=== PATIENT | female | born 1930 | race Caucasian/White ===

== ENCOUNTER 2016-07-01 08:20 | Day surgery (SDC) | payer MEDICARE, BC ==
[2016-07-01] MEDS ORDERED: PROPOFOL 10 MG/ML VIAL IV ONE (13:33)
[2016-07-01] MEDS ORDERED: LIDOCAINE 2% MDV (20MG/ML) 20ML VIAL IV ONE (13:33)
--- NOTE | 2016-07-05 15:40 | Operative Note ---
DATE OF SURGERY: 07/01/2016 REQUESTING PHYSICIAN: Abdiaziz Gallegos DO SURGEON: Beth Mao MD POSTOPERATIVE DIAGNOSES: 1. Severe left-sided colonic diverticulosis. 2. Mild terminal ileitis. 3. Grade 3 internal hemorrhoids. OPERATION: COLONOSCOPY and exam. REASON FOR PROCEDURE: This is an 86-year-old female with a history of diverticulitis who presented for screening colonoscopy. SEDATION: Sedation as per anesthesia. Pulse oximetry was monitored throughout the duration of the procedure to maintain O2 saturation of 90% or greater. Supplemental oxygen was administered via nasal cannula. Cardiac and vital signs were monitored throughout the duration of the procedure and they were stable. PROCEDURE: Description of the procedure of colonoscopy, risks, and alternatives to the procedure including the risk of bleeding and perforation among others were explained to the patient who voiced understanding and agreed to have the procedure done. A physical examination was performed and the patient was found stable for sedation. The patient was then placed in the left lateral position and sedation was initiated. Digital rectal exam was performed and showed small external hemorrhoids with no palpable rectal masses. A lubricated Olympus PCF-180AL colonoscope was then inserted into the rectum under direct visualization and was advanced to the cecum without difficulty. The ileocecal valve and appendiceal orifice were identified and photographed. The colonic mucosa was carefully examined upon insertion of the colonoscope. There were scattered diverticula noted in the sigmoid and descending colon. The ileocecal valve was intubated and terminal ileal mucosa was inspected for about 10 cm, and it showed mild, occasional, erythematous foci. Multiple biopsies were obtained. The colonoscope was then withdrawn while carefully examining the colonic mucosal surfaces. No other lesions were noted. In the rectum, retroflexion was performed and grade 3 internal hemorrhoids were noted. The colonoscope was then withdrawn and the procedure was terminated. The patient tolerated the procedure well without any complications. The patient remained with stable vital signs and was sent to the recovery room. PLAN AND RECOMMENDATIONS: 1. The patient is to be on a high-fiber diet. 2. The patient is to have repeat colonoscopy only as needed. Thank you for allowing me to participate in the care of this patient. Beth Mao MD CC: Abdiaziz Gallegos DO [facility]
== END 2016-07-01 11:10 | disposition home or self-care (01) ==
LOC: HOP 08:20
PROVIDERS: ATTEND Internal Medicine Gastroenterology
DX: Z12.11 Encounter for screening for malignant neoplasm of colon (principal); K57.30 Diverticulosis of large intestine without perforation or abscess without bleeding; K50.00 Crohn's disease of small intestine without complications; K64.2 Third degree hemorrhoids

== ENCOUNTER 2018-03-13 09:34 | Inpatient (IN) | payer MEDICARE, BC ==
--- NOTE | 2018-03-13 09:56 | Emergency Department Record ---
History of Present Illness - General Chief Complaint: Back Pain/Injury Stated Complaint: LOWER BACK PAIN Time Seen by Provider: 03/13/18 09:55 Source: Patient, Family Mode of Arrival: Ambulatory Limitations: No limitations - History of Present Illness Initial Comments: pt is having llq pain. she has been to hgb 3x and was told that she has a uti. she has finished her abx and the pain is worse. MD Complaint: Back pain, Other (llq pain) Onset/Timin -: Days(s) Similar Symptoms Previously: Yes Place: Home Radiation: Abdomen Severity: Moderate Severity scale (1-10): 10 Quality: Aching Consistency: Constant, Intermittent Improves With: None Worsens With: None Context: Unknown Associated Symptoms: Abdominal pain, Constipation Treatments Prior to Arrival: Other medications - Related Data Home Medications Medication Instructions Recorded Confirmed Last Taken Diltiazem HCl [Diltiazem ER] 240 mg PO DAILY 03/13/18 03/13/18 1 Day Ago ~03/12/18 Furosemide [Lasix] 20 mg PO DAILY 03/13/18 03/13/18 1 Day Ago ~03/12/18 Ketorolac Tromethamine [Acular] 1 drop OP ASDIR 03/13/18 03/13/18 Unknown Tramadol HCl 50 mg PO Q6H 03/13/18 03/13/18 1 Day Ago ~03/12/18 Allergies Allergy/AdvReac Type Severity Reaction Status Date / Time No Known Drug Allergies Allergy Verified 03/13/18 09:49 Travel Screening - Travel/Exposure Within Last 30 Days Have you traveled within the last 30 days?: No - Travel/Exposure Within Last Year Have you traveled outside the [place] in the last year?: No - Additonal Travel Details Have you been exposed to anyone with a communicable illness?: No - Travel Symptoms Symptom Screening: None Review of Systems Reviewed: No additional complaints except as noted below Constitutional: Reports: As per HPI. Denies: Chills, Fever, Malaise, Night sweats, Weakness, Weight change Eyes: Reports: As per HPI. Denies: Eye discharge, Eye pain, Photophobia, Vision change ENT: Reports: As per HPI. Denies: Congestion, Dental pain, Ear pain, Epistaxis , Hearing loss, Throat pain Respiratory: Reports: As per HPI. Denies: Cough, Dyspnea, Hemoptysis, Stridor, Wheezes Cardiovascular: Reports: As per HPI. Denies: Arrhythmia, Chest pain, Dyspnea on exertion, Edema, Murmurs, Orthopnea, Palpitations, Paroxysmal nocturnal dyspnea, Rheumatic Fever, Syncope Endocrine: Reports: As per HPI. Denies: Fatigue, Heat or cold intolerance, Polydipsia, Polyuria Gastrointestinal: Reports: As per HPI, Abdominal pain. Denies: Constipation, Diarrhea, Hematemesis, Hematochezia, Melena, Nausea, Vomiting Genitourinary: Reports: As per HPI. Denies: Abnormal menses, Discharge, Dyspareunia, Dysuria, Frequency, Hematuria, Incontinence, Retention, Urgency Musculoskeletal: Reports: As per HPI. Denies: Arthralgia, Back pain, Gout, Joint swelling, Myalgia, Neck pain Skin: Reports: As per HPI. Denies: Bruising, Change in color, Change in hair/ nails, Lesions, Pruritus, Rash Neurological: Reports: As per HPI. Denies: Abnormal gait, Confusion, Headache, Numbness, Paresthesias, Seizure, Tingling, Tremors, Vertigo, Weakness Psychiatric: Reports: As per HPI. Denies: Anxiety, Auditory hallucinations, Depression, Homicidal thoughts, Suicidal thoughts, Visual hallucinations Hematological/Lymphatic: Reports: As per HPI. Denies: Anemia, Blood Clots, Easy bleeding, Easy bruising, Swollen glands Past Medical History - SOCIAL HISTORY Smoking Status: Never smoker Alcohol Use: None Drug Use: None - RESPIRATORY Hx Respiratory Disorders: No - CARDIOVASCULAR Hx Cardio Disorders: Yes Hx Edema: Yes Hx Hypertension: Yes Hx Irregular Heartbeat: Yes (Afib) Comment:: Pt unaware of when in Afib, "goes in and out without warning" no s/s - NEURO Hx Neuro Disorders: No - GI Hx GI Disorders: Yes Hx Abdominal Pain: Yes Hx Diverticulitis: Yes (Mar, 2016) Hx of Polyps: Yes - Hx Kidney Stones: Yes (small on right) - ENDOCRINE Hx Endocrine Disorders: Yes Hx Thyroid Disease: Yes (hypo) - MUSCULOSKELETAL Hx Musculoskeletal Disorders: Yes Hx Arthritis: Yes Comment:: DDD-neck - PSYCH Hx Psych Problems: No - HEMATOLOGY/ONCOLOGY Hx Hematology/Oncology Disorders: Yes Hx Bruising: Yes (d/t NSAID & Asa) Family Medical History Any Significant Family History?: Yes Hx Heart Disease: Mother *Heart Comment: Son Physical Exam - General General Appearance: Alert, Oriented x3, Cooperative, Mild distress - Head Head exam: Normal inspection - Eye Eye exam: Normal appearance, PERRL, EOMI Pupils: Normal accommodation - ENT ENT exam: Normal exam, Mucous membranes moist, Normal external ear exam, Normal orophraynx Ear exam: Normal external inspection. negative: External canal tenderness Nasal Exam: Normal inspection. negative: Discharge, Sinus tenderness Mouth exam: Normal external inspection, Tongue normal Teeth exam: Normal inspection. negative: Dental caries Throat exam: Normal inspection. negative: Tonsillar erythema, Tonsillar exudate - Neck Neck exam: Normal inspection, Full ROM. negative: Tenderness - Respiratory Respiratory exam: Normal lung sounds bilaterally. negative: Respiratory distress - Cardiovascular Cardiovascular Exam: Normal rhythm, Normal heart sounds, Bradycardia - GI/Abdominal GI/Abdominal exam: Soft, Normal bowel sounds, Tenderness (llq) - Rectal Rectal exam: Deferred - exam: Deferred - Extremities Extremities exam: Normal inspection, Full ROM, Normal capillary refill. negative: Tenderness - Back Back exam: Reports: Normal inspection, Full ROM. Denies: Muscle spasm, Rash noted, Tenderness - Neurological Neurological exam: Alert, CN II-XII intact, Normal gait, Oriented X3 - Psychiatric Psychiatric exam: Normal affect, Normal mood - Skin Skin exam: Dry, Intact, Normal color, Warm Course Vital Signs 03/13/18 09:36 Temperature 97.7 F Pulse Rate 58 L Respiratory 20 Rate Blood Pressure 219/117 Pulse Ox 97 - Reevaluation(s) Reevaluation #1: 03/13/18 16:03 ct shows colitis. Medical Decision Making - Lab Data Result diagrams: 03/13/18 10:30 03/13/18 10:30 Disposition Disposition: Admit Clinical Impression: Colitis, Bradycardia Disposition: Still a Patient at [facility] Decision to Admit Date: 03/13/18 Decision to Admit Time: 16:04 Forms: Patient Portal Access Quality - Blood Pressure Screening Does Patient Have Any of the Following: No Blood Pressure Classification: Hypertensive Reading Systolic Measurement: 219 Diastolic Measurement: 117
[2018-03-13 10:38] LABS: BASO % 0.3 % (0-6); EOS % 3.9 % (0-6); HEMATOCRIT 37.8 % (35.0-47.0); HEMOGLOBIN 12.2 gm/dl (11.6-16.0); LYMPH % 25.2 % (16-45); MEAN CELL VOLUME 96.2 fl (81-97); MEAN CORPUSCULAR HGB CONC 32.3 g/dl (32-36); MEAN PLATELET VOLUME 10.2 fl (7.4-10.4); MONO % 9.6 % (0-9); PLATELET COUNT 242 K/uL (130-400); RED BLOOD COUNT 3.93 M/uL (3.80-5.40); RED CELL DISTRIBUTION WIDTH 13.5 % (11.5-14.5); WHITE BLOOD COUNT W/O DIFF 7.2 K/uL (4.2-12.2)
[2018-03-13 10:54] LABS: CREATININE 1.7 mg/dL (0.5-0.9)
[2018-03-13 10:55] LABS: BILIRUBIN,TOTAL 0.4 mg/dL (0.2-1.0)
[2018-03-13 10:56] LABS: URINE APPEARANCE CLEAR; URINE BILIRUBIN NEGATIVE (NEGATIVE); URINE BLOOD NEGATIVE (NEGATIVE); URINE COLOR YELLOW; URINE GLUCOSE (UA) NEGATIVE (NEGATIVE); URINE KETONE NEGATIVE (NEGATIVE); URINE LEUKOCYTE ESTERASE NEGATIVE (NEGATIVE); URINE NITRITE NEGATIVE (NEGATIVE); URINE UROBILINOGEN 0.2 E.U./dL (0.20 - 1.00)
[2018-03-13] MEDS ORDERED: 0.9% SODIUM CHLORIDE 250ML BAG IV ONE (11:08)
[2018-03-13] MEDS ORDERED: CLONIDINE HCL 0.1 MG TABLET PO ONE (11:12)
[2018-03-13] MEDS ORDERED: MORPHINE SULFATE 10 MG/ML VIAL IVP ONE (12:24)
[2018-03-13] MEDS ORDERED: METRONIDAZOLE IVPB 500 MG/100 ML BAG IVPB ONE (13:06)
[2018-03-13] MEDS ORDERED: CIPROFLOXACIN LACTATE/D5W 400 MG/200 ML BAG IVPB ONE (13:06)
[2018-03-13] MEDS ORDERED: PROMETHAZINE HCL 6.25 MG in 0.9 % SODIUM CHLORIDE 100ML 100 ML IVPB ONE (14:05)
[2018-03-13] MEDS ORDERED: DIPHENHYDRAMINE HCL 50 MG/ML VIAL IVP ONE (15:43)
[2018-03-13] MEDS ORDERED: LEVOTHYROXINE SOD 112 MCG TAB PO SCH (17:13)
[2018-03-13] MEDS ORDERED: ASPIRIN 81 MG TABEC PO SCH (17:13)
[2018-03-13] MEDS ORDERED: HYDRALAZINE HCL 10 MG TABLET PO PRN (21:16)
[2018-03-13] MEDS: MORPHINE SULFATE 10 MG/ML VIAL IVP PRN (22:09)
[2018-03-13] MEDS: SIMVASTATIN 20 MG TABLET PO SCH (22:11)
[2018-03-13] MEDS: METRONIDAZOLE IVPB 500 MG/100 ML BAG IVPB SCH (22:11)
[2018-03-14] MEDS: CIPROFLOXACIN LACTATE/D5W 400 MG/200 ML BAG IVPB SCH ×2 (02:27→14:17)
[2018-03-14] MEDS: METRONIDAZOLE IVPB 500 MG/100 ML BAG IVPB SCH ×3 (05:42→21:34)
[2018-03-14] MEDS ORDERED: LEVOTHYROXINE SOD 112 MCG TAB PO SCH (06:00)
[2018-03-14 06:51] LABS: BASO % 0.3 % (0-6); EOS % 3.4 % (0-6); GRAN % 64.5 % (47-80); HEMATOCRIT 31.3 % (35.0-47.0); HEMOGLOBIN 9.7 gm/dl (11.6-16.0); LYMPH % 22.9 % (16-45); MEAN CELL VOLUME 96.6 fl (81-97); MEAN CORPUSCULAR HEMOGLOBIN 29.9 pg (27-33); MEAN PLATELET VOLUME 10.4 fl (7.4-10.4); MONO % 8.9 % (0-9); PLATELET COUNT 219 K/uL (130-400); RED BLOOD COUNT 3.24 M/uL (3.80-5.40); RED CELL DISTRIBUTION WIDTH 13.6 % (11.5-14.5); WHITE BLOOD COUNT W/O DIFF 6.9 K/uL (4.2-12.2)
[2018-03-14 07:05] LABS: ALBUMIN 3.1 g/dL (4.0-5.0); BILIRUBIN,TOTAL 0.3 mg/dL (0.2-1.0); TOTAL PROTEIN 6.1 g/dL (6.6-8.7)
--- NOTE | 2018-03-14 07:42 | CT SCAN REPORT ---
EXAM: NONCONTRAST CT OF THE ABDOMEN AND PELVIS HISTORY: LOWER ABDOMINAL PAIN. TECHNIQUE: Noncontrast CT of the abdomen and pelvis was obtained. Comparison: Pelvic radiograph 01/10/18. FINDINGS: Large hiatal hernia. Trace bilateral pleural effusions. Noncalcified subpleural 4 mm left lower lobe nodule (series 3 image 15). Coronary artery calcifications. Scattered atelectasis and/or scarring in both lung bases. Trace pericardial effusion. Unremarkable noncontrast appearance of the liver, gallbladder, spleen (with the exception of small calcific granulomas), and adrenal glands. The kidneys appear mildly atrophic. No hydronephrosis. Nonobstructing 5 mm intrarenal calculus. The pancreas appears unremarkable. Segmental circumferential colonic wall thickening extending from the proximal descending colon through the sigmoid colon with associated mild pericolonic fat stranding. Scattered colonic diverticulosis without focal inflammation suggests acute diverticulitis. Oral contrast material extends to the proximal transverse colon. The small bowel loops are not dilated. No significant free fluid. No free air. The abdominal aorta is calcified and tortuous without aneurysmal dilatation. Multilevel lumbar spine degenerative changes. No definite acute osseous findings. IMPRESSION: 1. SEGMENTAL COLONIC THICKENING WITH SURROUNDING INFLAMMATION EXTENDING FROM THE PROXIMAL DESCENDING COLON THROUGH THE SIGMOID COLON, COMPATIBLE WITH NONSPECIFIC COLITIS, INFECTIOUS OR INFLAMMATORY ETIOLOGIES ARE FAVORED. 2. LARGE HIATAL HERNIA. 3. COLONIC DIVERTICULOSIS. 4. TRACE BILATERAL PLEURAL EFFUSIONS AND TRACE PERICARDIAL EFFUSION. CORONARY ARTERY CALCIFICATIONS. 5. INCIDENTAL NONCALCIFIED 4 MM LEFT LOWER LOBE NODULE. FOLLOW-UP CT OF THE CHEST MAY BE OBTAINED IN TWELVE MONTHS TO ASSESS FOR STABILITY. 6. THERE IS A NONOBSTRUCTING OR AN INTRARENAL CALCULUS. 7. ADDITIONAL INCIDENTAL AND LIKELY CHRONIC FINDINGS DESCRIBED IN THE BODY OF THE REPORT. JOB NUMBER: [id number] [facility]
[2018-03-14] MEDS: MULTIVITAMINS/MINERALS TABLET PO SCH (09:27)
[2018-03-14] MEDS: FUROSEMIDE 20 MG TABLET PO SCH (09:28)
[2018-03-14] MEDS: ASPIRIN 81 MG TABEC PO SCH (09:28)
[2018-03-14] MEDS ORDERED: DILTIAZEM 240 MG CAP CR PO SCH (10:00)
[2018-03-14] MEDS ORDERED: OPTH OPTH SCH (10:00)
[2018-03-14] MEDS ORDERED: [UNRECOGNIZED DRUG - OTHER] OPTH SCH (10:00)
[2018-03-14] MEDS ORDERED: MULTIVITAMIN PO SCH (10:00)
--- NOTE | 2018-03-14 10:50 | History & Physical ---
History of Present Illness - Date of Service Date of Service for History & Physical: 03/14/18 - History of Present Illness Admitting Diagnosis: colitis, bradycardia, hypertension History of Present Illness: 87 year old female presents to ED for left-sided abdominal pain and weakness. Patient reported being seen at [facility] three times recently and told that she had a UTI. Patient most recently completed Macrodantin, denies any further urinary symptoms at this time. Patient is a poor historian, difficult to obtain accurate history. Patient lives at home with her , typically uses a walker with ambulation. Past medical history includes CKD, HTN, chronic afib (ASA 81mg), chronic low back pain PCP: Dr. [employer] Assistant: Dr. Ye ED Course: VS: Temp 97.7F, HR 58, RR 20, BP 219/117, Pulse ox 97% Patient received one dose of Clonidine for hypertension, minimal results in BP improvement 250mL normal saline UA negative Abd/Pelvic CT: colitis Cr 1.7, BUN 32, GFR 30 and consistent with recent labs and CKD 03/14/18: Patient A&O x 3, resting comfortably in bed. Patient reports continued left sided abdominal pain and bilateral leg pain. Patient denies any further diarrhea or nausea. Denies urinary symptoms, shortness of breath, or chest pain. Patient reports continued weakness and fatigue. 2 Travel Screening - Travel/Exposure Within Last 30 Days Have you traveled within the last 30 days?: No - Travel/Exposure Within Last Year Have you traveled outside the [place] in the last year?: No - Additonal Travel Details Have you been exposed to anyone with a communicable illness?: No - Travel Symptoms Symptom Screening: None Review of Systems Reviewed: No additional complaints except as noted below Constitutional: Reports: As per HPI. Denies: Chills, Fever, Malaise, Night sweats, Weakness, Weight change Eyes: Reports: As per HPI. Denies: Eye discharge, Eye pain, Photophobia, Vision change ENT: Reports: As per HPI. Denies: Congestion, Dental pain, Ear pain, Epistaxis , Hearing loss, Throat pain Respiratory: Reports: As per HPI. Denies: Cough, Dyspnea, Hemoptysis, Stridor, Wheezes Cardiovascular: Reports: As per HPI. Denies: Arrhythmia, Chest pain, Dyspnea on exertion, Edema, Murmurs, Orthopnea, Palpitations, Paroxysmal nocturnal dyspnea, Rheumatic Fever, Syncope Endocrine: Reports: As per HPI. Denies: Fatigue, Heat or cold intolerance, Polydipsia, Polyuria Gastrointestinal: Reports: As per HPI, Abdominal pain. Denies: Constipation, Diarrhea, Hematemesis, Hematochezia, Melena, Nausea, Vomiting Genitourinary: Reports: As per HPI. Denies: Abnormal menses, Discharge, Dyspareunia, Dysuria, Frequency, Hematuria, Incontinence, Retention, Urgency Musculoskeletal: Reports: As per HPI. Denies: Arthralgia, Back pain, Gout, Joint swelling, Myalgia, Neck pain Skin: Reports: As per HPI. Denies: Bruising, Change in color, Change in hair/ nails, Lesions, Pruritus, Rash Neurological: Reports: As per HPI. Denies: Abnormal gait, Confusion, Headache, Numbness, Paresthesias, Seizure, Tingling, Tremors, Vertigo, Weakness Psychiatric: Reports: As per HPI. Denies: Anxiety, Auditory hallucinations, Depression, Homicidal thoughts, Suicidal thoughts, Visual hallucinations Hematological/Lymphatic: Reports: As per HPI. Denies: Anemia, Blood Clots, Easy bleeding, Easy bruising, Swollen glands Past Medical History - SOCIAL HISTORY Smoking Status: Never smoker - RESPIRATORY Hx Respiratory Disorders: No - CARDIOVASCULAR Hx Cardio Disorders: Yes Hx Edema: Yes Hx Hypertension: Yes Hx Irregular Heartbeat: Yes (Afib) Comment:: Pt unaware of when in Afib, "goes in and out without warning" no s/s - NEURO Hx Neuro Disorders: No - GI Hx GI Disorders: Yes Hx Abdominal Pain: Yes Hx Diverticulitis: Yes (Mar, 2016) Hx of Polyps: Yes - Hx Genitourinary Disorders: No Hx Kidney Stones: Yes (small on right) - ENDOCRINE Hx Endocrine Disorders: Yes Hx Thyroid Disease: Yes (hypo) - MUSCULOSKELETAL Hx Musculoskeletal Disorders: Yes Hx Arthritis: Yes Comment:: DDD-neck - PSYCH Hx Psych Problems: No - HEMATOLOGY/ONCOLOGY Hx Hematology/Oncology Disorders: Yes Hx Bruising: Yes (d/t NSAID & Asa) Family Medical History Any Significant Family History?: Yes Hx Heart Disease: Mother *Heart Comment: Son H&P Meds/Allergies - Allergies Allergies: Allergies Allergy/AdvReac Type Severity Reaction Status Date / Time No Known Drug Allergies Allergy Verified 03/13/18 09:49 - Home Medications Home Medications Medication Instructions Recorded Confirmed Last Taken Diltiazem HCl [Diltiazem ER] 240 mg PO DAILY 03/13/18 03/13/18 1 Day Ago ~03/12/18 Furosemide [Lasix] 20 mg PO DAILY 03/13/18 03/13/18 1 Day Ago ~03/12/18 Ketorolac Tromethamine [Acular] 1 drop OP ASDIR 03/13/18 03/13/18 Unknown Tramadol HCl 50 mg PO Q6H 03/13/18 03/13/18 1 Day Ago ~03/12/18 - Active Medications Active Medications: Current Medications Aspirin (Ecotrin (Ec)) 81 mg PO DAILY [facility] Last Admin: 03/14/18 09:28 Dose: 81 mg Diltiazem HCl (Cardizem Cd) 240 mg PO DAILY [facility] Last Admin: 03/14/18 09:28 Dose: 240 mg Enoxaparin Sodium (Lovenox) 30 mg SQ DAILY [facility] Furosemide (Lasix) 20 mg PO DAILY [facility] Last Admin: 03/14/18 09:28 Dose: 20 mg Hydralazine HCl (Apresoline) 10 mg PO Q6HR PRN PRN Reason: HYPERTENSIVE EMERGENCY Last Admin: 03/14/18 09:28 Dose: 10 mg Ciprofloxacin Lactate (Cipro) 400 mg in 200 mls @ 200 mls/hr IVPB Q12H [facility] Stop: 03/19/18 02:01 Last Infusion: 03/14/18 05:43 Dose: Infused Metronidazole/Sodium Chloride (Flagyl) 500 mg in 100 mls @ 100 mls/hr IVPB Q8H [facility] Stop: 03/18/18 22:01 Last Infusion: 03/14/18 06:40 Dose: Infused Sodium Chloride () 1,000 mls @ 50 mls/hr IV .Q20H [facility] Levothyroxine Sodium (Synthroid) 112 mcg PO DAILYTHY [facility] Morphine Sulfate (Morphine Sulfate) 1 mg IVP Q4H PRN PRN Reason: ABDOMINAL PAIN Last Admin: 03/13/18 22:09 Dose: 1 mg Multivitamins/Minerals (Centrum) 1 tab PO DAILY [facility] Last Admin: 03/14/18 09:27 Dose: 1 tab Patient Own Med: Combiga 0.2%/0.5% Opth 1 each OPTH BID [facility] Stop: 03/14/18 22:01 Patient Own Med: Prednisolone Opth Lawanda 1 each LEFT EYE TID [facility] Stop: 03/14/18 16:01 Simvastatin (Zocor) 40 mg PO QHS [facility] Last Admin: 03/13/18 22:11 Dose: 40 mg Physical Exam - Vital Signs Vital Signs: Vital Signs - Last 24 Hrs Temp Pulse Pulse Resp BP Pulse Ox 03/14/18 07:00 98.6 F 55 L 18 172/75 96 03/13/18 21:00 50 L 50 L 16 03/13/18 20:30 98.0 F 56 L 18 205/102 95 03/13/18 18:03 55 L 16 03/13/18 17:19 97.4 F L 55 L 16 203/102 95 03/13/18 17:05 97.1 F L 56 L 14 203/92 95 03/13/18 14:46 46 L 18 174/84 03/13/18 14:04 47 L 18 168/86 03/13/18 13:29 98.2 F 49 L 18 168/78 03/13/18 12:41 51 L 13 196/100 03/13/18 12:09 52 L 20 205/103 03/13/18 11:28 56 L 18 213/117 96 - General General Appearance: Alert, Oriented x3, Cooperative, No acute distress Limitations: No limitations - Head Head exam: Normal inspection - Eye Eye exam: Other (left eye serous drainage) - ENT ENT exam: Normal exam, Mucous membranes dry Ear exam: Normal external inspection. negative: External canal tenderness Nasal Exam: Normal inspection. negative: Discharge, Sinus tenderness Mouth exam: Normal external inspection, Tongue normal Teeth exam: Normal inspection. negative: Dental caries Throat exam: Normal inspection. negative: Tonsillar erythema, Tonsillar exudate - Neck Neck exam: Normal inspection, Full ROM. negative: Tenderness - Respiratory Respiratory exam: Normal lung sounds bilaterally. negative: Respiratory distress - Cardiovascular Cardiovascular Exam: Normal rhythm, Normal heart sounds, Bradycardia Peripheral Pulses: 2+: Radial (R), Radial (L), Dorsalis Pedis (R), Dorsalis Pedis (L) - GI/Abdominal GI/Abdominal exam: Soft, Normal bowel sounds, Tenderness (LLQ tenderness with palpation) - Rectal Rectal exam: Deferred - exam: Deferred - Extremities Extremities exam: Normal inspection, Full ROM, Normal capillary refill, Pedal edema (1+ bilaterally). negative: Tenderness - Back Back exam: Reports: Normal inspection, Full ROM. Denies: Muscle spasm, Rash noted, Tenderness - Neurological Neurological exam: Alert, Normal gait, Oriented X3 - Psychiatric Psychiatric exam: Normal affect, Normal mood - Skin Skin exam: Dry, Intact, Normal color, Warm Results - Labs Result Diagrams: 03/14/18 06:20 03/14/18 06:20 Labs Last 24 Hours: Laboratory Results - last 24 hr 03/13/18 03/13/18 03/13/18 10:05 10:30 10:30 WBC 7.2 RBC 3.93 Hgb 12.2 Hct 37.8 MCV 96.2 MCH 31.0 MCHC 32.3 RDW 13.5 Plt Count 242 MPV 10.2 Gran % 61.0 Lymphocytes % 25.2 Monocytes % 9.6 H Eosinophils % 3.9 Basophils % 0.3 Sodium 139 Potassium 4.6 H Chloride 97 L Carbon Dioxide 29.0 Anion Gap 13.0 BUN 32 H Creatinine 1.7 H Estimated GFR 30 Random Glucose 111 H Calcium 10.2 Total Bilirubin 0.40 AST 28 ALT 18 Alkaline Phosphatase 111 H Total Protein 8.0 Albumin 4.0 Globulin 4.0 Albumin/Globulin Ratio 1.0 L Urine Color Yellow Urine Appearance Clear Urine pH 6.5 Ur Specific Graham 1.015 Urine Protein 100 mg/dl H Urine Glucose (UA) Negative Urine Ketones Negative Urine Blood Negative Urine Nitrite Negative Urine Bilirubin Negative Urine Urobilinogen 0.2 Ur Leukocyte Esterase Negative 03/14/18 03/14/18 06:20 06:20 WBC 6.9 RBC 3.24 L Hgb 9.7 L Hct 31.3 L MCV 96.6 MCH 29.9 MCHC 31.0 L RDW 13.6 Plt Count 219 MPV 10.4 Gran % 64.5 Lymphocytes % 22.9 Monocytes % 8.9 Eosinophils % 3.4 Basophils % 0.3 Sodium 139 Potassium 4.3 Chloride 99 Carbon Dioxide 28.0 Anion Gap 12.0 BUN 31 H Creatinine 2.0 H Estimated GFR 25 Random Glucose 82 Calcium 9.1 Total Bilirubin 0.30 AST 20 ALT 12 Alkaline Phosphatase 80 Total Protein 6.1 L Albumin 3.1 L Globulin 3.0 Albumin/Globulin Ratio 1.0 L Urine Color Urine Appearance Urine pH Ur Specific Graham Urine Protein Urine Glucose (UA) Urine Ketones Urine Blood Urine Nitrite Urine Bilirubin Urine Urobilinogen Ur Leukocyte Esterase VTE H&P Assessment - Risk for VTE Risk for VTE: Yes Risk Level: Moderate Risk Assessment Date: 03/14/18 Risk Assessment Time: 10:58 VTE Orders Placed or Will Be Placed: Yes Plan - Detailed Diagnosis and Plan (1) Colitis Current Visit: Yes Status: Acute Base Code: K52.9 - NONINFECTIVE GASTROENTERITIS AND COLITIS, UNSPECIFIED Comment: 03/14/18: -Abd/pelvic CT indicated nonspecific colitis with diverticulosis -Cipro 400mg IV BID and FLagyl 500mg IV q8h -Clear liquid diet -Morphine prn pain -WBC 7.2, patient has remained afebrile -Cornelio IV hydration with 0.9% NS @ 50ml/hr due to CKD -Continued LLQ abdominal pain at this time (2) Hypertension Current Visit: Yes Status: Acute Base Code: I10 - ESSENTIAL (PRIMARY) HYPERTENSION Comment: 03/14/18: -History of HTN -Continue current dose of Cardizem 120mg daily -Will add Hydralazine 10mg TID prn SBP>160 -Will avoid TAMIKA/ARB due to CKD (3) Chronic kidney disease Current Visit: Yes Status: Acute Base Code: N18.9 - CHRONIC KIDNEY DISEASE, UNSPECIFIED Comment: 03/14/18: -Patient poor historian -After reviewing previous labs, baseline Cr 1.8, BUN 42, GFR 27 (June 2017). -Current CR 1.7, BUN 32, GFR 30 -Will continue to monitor and avoid nephrotoxic agents (4) Weakness Current Visit: Yes Status: Acute Base Code: R53.1 - WEAKNESS Comment: 03/14: -Patient reports worsening weakness -PT/OT evaluation -Patient up with walker and 1-2 assist at this time (5) Bradycardia Current Visit: Yes Status: Acute Base Code: R00.1 - BRADYCARDIA, UNSPECIFIED Comment: 03/14/18: -History of chronic a-fib -Recent cardiology appointment in Jan 2018, EKG indicated rate 55 -Continue Cardizem 120mg ER daily -monitoring analyst (6) DVT (deep venous thrombosis) Current Visit: Yes Status: Acute Base Code: I82.409 - ACUTE EMBOLISM AND THOMBOS UNSP DEEP VN UNSP LOWER EXTREMITY Comment: 03/14/18: -Patient is high risk due to age, hospitalization, and comorbidities -Lovenox 30mg SQ daily due to kidney function (7) Full code status Current Visit: Yes Status: Acute Base Code: Z78.9 - OTHER SPECIFIED HEALTH STATUS Comment: 03/14/18: Patient is a full code
[2018-03-14] MEDS: 0.9 % SODIUM CHLORIDE 1000ML 1,000 ML IV SCH (11:22)
[2018-03-14] MEDS: PREDNISOLONE OPTH LEFT EYE SCH ×2 (11:30→16:18)
[2018-03-14] MEDS: OPTH OPTH SCH ×2 (11:30→21:35)
[2018-03-14] MEDS: [UNRECOGNIZED DRUG - OTHER] OPTH SCH ×2 (11:30→21:35)
[2018-03-14] MEDS: MORPHINE SULFATE 10 MG/ML VIAL IVP PRN ×3 (11:37→19:46)
--- NOTE | 2018-03-14 12:20 | Inpatient Certification ---
Inpatient Certification Admit to inpatient care: Based on my medical assessment, after consideration of patient's risk factors (age, co-morbidities and patient presenting symptoms and acuity), I expect that this patient will remain in the hospital greater than or equal to two midnights and that the services needed warrant inpatient care because: Patient Risk Factors: [age, colitis, weakness, hospitalization, chronic kidney disease] Estimated length of stay: The patient may reasonably be expected to be discharged or transferred to a hospital within 48-96 hours after admission to [facility]. Services needed: [IV antibiotics, cardiac monitoring, serial labs, PT/OT, pain control] Post hospital care (if known): [] I certify that my determination is in accordance with my understanding of Medicare requirements for reasonable and necessary inpatient services. 03/14/18 12:19
--- NOTE | 2018-03-14 14:37 | Rehab Evaluation ---
Patient Information - Patient Information Diagnosis: colitis, bradycardia, HTN Ordered Treatment: OT Evaluate and Treat Status: Initial Evaluation Surgery: No Past Medical/Surgical Hx: PAST MEDICAL/SURGICAL HISTORY Past Surgical History bilat foot (toe) sx, left lumpectomy (benign), bilat RCR shoulder, left eye PMH - Respiratory Hx Respiratory Disorders No PMH - Cardiovascular Hx Cardiovascular Disorders Yes Hx Edema Yes Hx Hypertension Yes Hx Irregular Heartbeat Yes: Afib Comment: Pt unaware of when in Afib, "goes in and out without warning" no s/s PMH - Neuro Hx Neurological Disorders No PMH - GI Hx Gastrointestinal Disorders Yes Hx Abdominal Pain Yes Hx Diverticulitis Yes: Mar, 2016 PMH - Hx Genitourinary Disorders No Hx Age of Menopause 44 Patient No Hx Kidney Stones Yes: small on right PMH - Endocrine Hx Endocrine Disorders Yes Hx Thyroid Disease Yes: hypo PMH - Musculoskeletal Hx Musculoskeletal Disorders Yes Hx Arthritis Yes Comment: DDD-neck PMH - Psych Hx Psychiatric Problems No PMH - Hematology/Oncology Hx Hematology/Oncology Yes Disorders Hx Bruising Yes: d/t NSAID & Asa Premorbid Status: Detail (Pt lives with spouse in an apartment with a ramp at the entrance. She has a walk in shower and a standard height toilet with a commode. She ambulates with a 2 wheeled walker. Spouse completes all meal prep , laundry and home mgmt as well as completing all of her self cares and assisting her with toileting.) Precautions: [place], Fall, Other (Impaired vision) - Time With Patient Total Time Spent With Patient (Min): 35 Treatment Procedures: Detail (OT eval low complexity) Subjective Information - Subjective Information Per Patient Objective Data - Pain Pain Present: Yes (6/10 back pain and abdominal pain) - Mental Status Patient Orientation: Oriented x3 - Visual Perception Deficit (Pt reports she is unable to see anything due to cataracts.) - ROM Not within normal limits (Carlos Eduardo UE AROM impaired throughout. Pt reports she had a left shoulder replacement previously.) - Strength/Tone Not within normal limits (Carlos Eduardo UE strength 3-/5 throughout. Pt very weak and reports pain with most movements.) - Coordination Deficit (Impaired carlos eduardo UEs with moderate tremors noted.) - Bed Mobility Needs Assist (Min assist x 2 for supine to sit.) - Transfers Needs Assist (Sit to stand with min assist x 2 with bed height raised.) - Balance Balance Sitting: Good Balance Standing: Fair - Sensation Deficit (Pt reports impaired sensation in carlos eduardo hands.) - Gait Detail (Pt amb several steps with standard walker with CG assist.) - ADL's/IADL's Detail (Pt unable to complete self cares at this time. She required max assist to don slipper socks.) Therapy Assessment - Therapy Assessment Detail (Pt presents with significant impairments in functional mobility and self cares. She has pain throughout arms and legs with movement which is limiting her function.) Problem List - Problem List Occupational Therapy Problem List: Detail (1. Decreased Ind with functional mobility. 2. Decreased Ind with self cares. 3. Carlos Eduardo UE weakness with significant pain thoughout.) Goals - Goals Occupational Therapy Goals: 1. Pt will be Ind with supine to sit. 2. Pt will be Ind with grooming and hygiene tasks. 3. Pt will demonstrate functional carlos eduardo UE ROM and strength to participate in self cares. 4. Pt will be Ind with upper body dressing. Prognosis - Prognosis Moderate Plan - Plan Occupational Therapy Plan: OT 2-4 times per week to address endurance, self cares and functional mobility.
--- NOTE | 2018-03-14 15:06 | Rehab Evaluation ---
Patient Information - Patient Information Diagnosis: colitis, bradycardia, HTN Ordered Treatment: PT Evaluate and Treat Status: Initial Evaluation Surgery: No Past Medical/Surgical Hx: PAST MEDICAL/SURGICAL HISTORY Past Surgical History bilat foot (toe) sx, left lumpectomy (benign), bilat RCR shoulder, left eye PMH - Respiratory Hx Respiratory Disorders No PMH - Cardiovascular Hx Cardiovascular Disorders Yes Hx Edema Yes Hx Hypertension Yes Hx Irregular Heartbeat Yes: Afib Comment: Pt unaware of when in Afib, "goes in and out without warning" no s/s PMH - Neuro Hx Neurological Disorders No PMH - GI Hx Gastrointestinal Disorders Yes Hx Abdominal Pain Yes Hx Diverticulitis Yes: Mar, 2016 PMH - Hx Genitourinary Disorders No Hx Age of Menopause 44 Patient No Hx Kidney Stones Yes: small on right PMH - Endocrine Hx Endocrine Disorders Yes Hx Thyroid Disease Yes: hypo PMH - Musculoskeletal Hx Musculoskeletal Disorders Yes Hx Arthritis Yes Comment: DDD-neck PMH - Psych Hx Psychiatric Problems No PMH - Hematology/Oncology Hx Hematology/Oncology Yes Disorders Hx Bruising Yes: d/t NSAID & Asa Premorbid Status: Detail (Pt lives with spouse in an apartment with a ramp at the entrance. He has a walk in shower and a standard height toilet with a commode. She ambulates with a 2 wheeled walker. Spouse completes all meal prep , laundry and home mgmt as well as completing all of her self cares and assisting her with toileting.) Precautions: [place], Fall, Other (Impaired vision) - Time With Patient Total Time Spent With Patient (Min): 30 Treatment Procedures: Detail (Initial Evaluation) Subjective Information - Subjective Information Per Patient (The patient had complaints of pain in L abdominal region and lower back level 6 at the highest using 0-10 pain scale.) Objective Data - Mental Status Patient Orientation: Oriented x3 (The patient new age, birthday and current month after given time to think about it.) - Visual Perception Deficit (The patient is legally blind.) - ROM Not within normal limits (The patient's LE AROM was WFL in ankles and knees, hip was not assess fully due to pain complaints with movement but appeared functional ie: patient could sit upright on edge of bed.) - Strength/Tone Not within normal limits (Unable to assess due to pain complaints with resistance however LE strength was generally 3 to 3+/5 throughout (functional). Refer to OT for UE strength.) - Bed Mobility Needs Assist (The patient required minimal PA of 2 for supine to sit and verbal cues for proper technique.) - Transfers Needs Assist (The patient required minimal PA of 1 and bed elevated for sit to stand transfer and verbal cueing to push up from bed. The patient transferred from bed to chair with CG of 1 and verbal cues for directing patient to chair due to visual deficits. The patient was left in chair with call light in chair.) - Balance Balance Sitting: Good Balance Standing: Fair (The patient required walker to stand.) - Sensation Deficit (Hypersensitive to touch bilaterally upper thigh and from knee to ankle. ) - Gait Detail (The patient ambulated two to three steps with standard walker to chair with CG of 1, supervision of 1 for safety.) Therapy Assessment - Therapy Assessment Detail (The patient exhibits decreased LE strength, decreased endurance for physical activity and requires assistance with mobility. Feel the patient would benefit from PT while an inpatient to maximize function and increase LE strength.) Problem List - Problem List Physical Therapy Problem List: Detail (1) Assistance with bed mobility and transfers 2) Decreased LE strength 3) Decreased endurance for physical activity 4) Impaired ambulation (limited distance)) Occupational Therapy Problem List: Detail (1. Decreased Ind with functional mobility. 2. Decreased Ind with self cares. 3. Significant pain thoughout.) Goals - Goals Physical Therapy Goals: 1) The patient will acheive supine to sit with supervision for safety and verbal cues for technique. 2) The patient will ambulate household distances with appropriate assistive distance with CG and verbal cues due to visual deficits. 3) The patient will acheive all transfers with CG for safety Prognosis - Prognosis Moderate Plan - Plan Physical Therapy Plan: PT 1 time a day M-F for gait training, transfer training , bed mobility and LE ROM and strengthening exercises.
[2018-03-14] MEDS: HYDRALAZINE HCL 10 MG TABLET PO SCH ×2 (16:17→21:34)
[2018-03-14] MEDS: SIMVASTATIN 20 MG TABLET PO SCH (21:34)
[2018-03-15] MEDS: MORPHINE SULFATE 10 MG/ML VIAL IVP PRN ×4 (01:04→16:53)
[2018-03-15] MEDS: CIPROFLOXACIN LACTATE/D5W 400 MG/200 ML BAG IVPB SCH ×2 (02:17→16:44)
[2018-03-15] MEDS: METRONIDAZOLE IVPB 500 MG/100 ML BAG IVPB SCH ×3 (05:00→21:29)
[2018-03-15] MEDS: LEVOTHYROXINE SOD 112 MCG TAB PO SCH (06:08)
[2018-03-15] MEDS: 0.9 % SODIUM CHLORIDE 1000ML 1,000 ML IV SCH (06:10)
[2018-03-15 07:15] LABS: ALBUMIN 3.1 g/dL (4.0-5.0); BILIRUBIN,TOTAL 0.2 mg/dL (0.2-1.0); CREATININE 2.2 mg/dL (0.5-0.9); TOTAL PROTEIN 6.1 g/dL (6.6-8.7)
[2018-03-15 08:09] LABS: BASO % 0.1 % (0-6); EOS % 0.7 % (0-6); GRAN % 60.3 % (47-80); HEMATOCRIT 30.4 % (35.0-47.0); HEMOGLOBIN 9.8 gm/dl (11.6-16.0); LYMPH % 27.5 % (16-45); MEAN CELL VOLUME 95.6 fl (81-97); MEAN CORPUSCULAR HEMOGLOBIN 30.8 pg (27-33); MEAN CORPUSCULAR HGB CONC 32.2 g/dl (32-36); MEAN PLATELET VOLUME 10.7 fl (7.4-10.4); MONO % 11.4 % (0-9); PLATELET COUNT 213 K/uL (130-400); RED BLOOD COUNT 3.18 M/uL (3.80-5.40); RED CELL DISTRIBUTION WIDTH 13.8 % (11.5-14.5); WHITE BLOOD COUNT W/O DIFF 6.7 K/uL (4.2-12.2)
[2018-03-15] MEDS: HYDRALAZINE HCL 10 MG TABLET PO SCH ×3 (10:13→21:30)
[2018-03-15] MEDS: DILTIAZEM HCL 120 MG ER CAPSULE PO SCH (10:21)
[2018-03-15] MEDS: ENOXAPARIN 30 MG/0.3 ML SYR SQ SCH (10:21)
[2018-03-15] MEDS: FUROSEMIDE 20 MG TABLET PO SCH (10:21)
[2018-03-15] MEDS: MULTIVITAMINS/MINERALS TABLET PO SCH (10:21)
[2018-03-15] MEDS: ASPIRIN 81 MG TABEC PO SCH (10:21)
--- NOTE | 2018-03-15 11:26 | Physician Progress Note ---
Subjective - Date Date of Physician Progress Note: 03/15/18 - Subjective Location: Abdomen (LLQ) Radiation: Non-Radiating Objective - Vital Signs Vital Signs: Vital Signs - Last 24 Hrs Temp Pulse Pulse Resp BP Pulse Ox 03/15/18 08:38 50 L 53 L 16 03/15/18 08:30 98.1 F 68 16 138/76 97 03/15/18 04:09 98.5 F 44 L 18 134/75 95 03/15/18 00:00 98.8 F 48 L 16 144/75 96 03/14/18 20:49 50 L 14 03/14/18 20:00 98.1 F 57 L 16 156/87 96 03/14/18 13:18 97.8 F 40 L 20 138/65 96 - General General Appearance: Alert, Oriented x3, Cooperative, No acute distress Limitations: No limitations - Head Head exam: Normal inspection - Eye Eye exam: Other (left eye serous drainage) Pupils: Normal accommodation - ENT ENT exam: Normal exam, Mucous membranes dry Ear exam: Normal external inspection. negative: External canal tenderness Nasal Exam: Normal inspection. negative: Discharge, Sinus tenderness Mouth exam: Normal external inspection, Tongue normal Teeth exam: Normal inspection. negative: Dental caries Throat exam: Normal inspection. negative: Tonsillar erythema, Tonsillar exudate - Neck Neck exam: Normal inspection, Full ROM. negative: Tenderness - Respiratory Respiratory exam: Normal lung sounds bilaterally. negative: Respiratory distress - Cardiovascular Cardiovascular Exam: Normal heart sounds, Bradycardia Peripheral Pulses: 2+: Radial (R), Radial (L), Dorsalis Pedis (R), Dorsalis Pedis (L) - GI/Abdominal GI/Abdominal exam: Soft, Normal bowel sounds, Tenderness (LLQ tenderness with palpation) - Rectal Rectal exam: Deferred - exam: Deferred - Extremities Extremities exam: Normal inspection, Full ROM, Normal capillary refill, Pedal edema (1+ bilaterally). negative: Tenderness - Back Back exam: Reports: Normal inspection, Full ROM. Denies: Muscle spasm, Rash noted, Tenderness - Neurological Neurological exam: Alert, Oriented X3 - Psychiatric Psychiatric exam: Normal affect, Normal mood - Skin Skin exam: Dry, Intact, Normal color, Warm Assessment and Plan - Assessment and Plan (1) Colitis Current Visit: Yes Status: Acute Base Code: K52.9 - NONINFECTIVE GASTROENTERITIS AND COLITIS, UNSPECIFIED Comment: 03/15/18: -Abd/pelvic CT indicated nonspecific colitis with diverticulosis -Cipro 400mg IV BID and FLagyl 500mg IV q8h -Advanced diet to soft bland -Morphine 2mg q4h prn pain -WBC 6.9, patient has remained afebrile -Encouraged PO fluid intake (2) Hypertension Current Visit: Yes Status: Acute Base Code: I10 - ESSENTIAL (PRIMARY) HYPERTENSION Comment: 03/15/18: -History of HTN -Continue current dose of Cardizem 120mg ER daily -Will add Hydralazine 10mg TID, hold for SBP<140 -Norvasc 2.5mg prn SBP>160 -Will avoid TAMIKA/ARB due to CKD -VS q4h (3) Chronic kidney disease Current Visit: Yes Status: Acute Base Code: N18.9 - CHRONIC KIDNEY DISEASE, UNSPECIFIED Comment: 03/15/18: -Patient poor historian -After reviewing previous labs, baseline Cr 1.8, BUN 42, GFR 27 (June 2017). -Current CR 2.2, BUN 34, GFR 23 -Will continue to monitor and avoid nephrotoxic agents (4) Weakness Current Visit: Yes Status: Acute Base Code: R53.1 - WEAKNESS Comment: 03/15: -Patient reports worsening weakness x several months -PT/OT evaluation -Patient up with walker and 1-2 assist at this time -Will consider MATTHEW at tn, as patient requires assistance with all ADL's and mobility at this time (5) Dysphagia Current Visit: Yes Status: Acute Base Code: R13.10 - DYSPHAGIA, UNSPECIFIED Comment: 03/15/18: -Patient expresses difficulty swallowing that has been worsening over the past 2 weeks -Soft diet -Swallow eval -Staff to assist with feedings as needed, patient to be placed 90 degrees upright for feedings (6) Bradycardia Current Visit: Yes Status: Acute Base Code: R00.1 - BRADYCARDIA, UNSPECIFIED Comment: 03/15/18: -History of chronic a-fib -Recent cardiology appointment in Jan 2018, EKG indicated rate 55 -Continue Cardizem 120mg ER daily -secured entrance monitor indicates a-fib (7) DVT (deep venous thrombosis) Current Visit: Yes Status: Acute Base Code: I82.409 - ACUTE EMBOLISM AND THOMBOS UNSP DEEP VN UNSP LOWER EXTREMITY Comment: 03/15/18: -Patient is high risk due to age, hospitalization, and comorbidities -Lovenox 30mg SQ daily due to kidney function (8) Full code status Current Visit: Yes Status: Acute Base Code: Z78.9 - OTHER SPECIFIED HEALTH STATUS Comment: 03/15/18: Patient is a full code Results - Labs Result Diagrams: 03/15/18 06:15 03/15/18 06:15 Labs Last 24 Hours: Laboratory Results - last 24 hr 03/15/18 03/15/18 06:15 06:15 WBC 6.7 RBC 3.18 L Hgb 9.8 L Hct 30.4 L MCV 95.6 MCH 30.8 MCHC 32.2 RDW 13.8 Plt Count 213 MPV 10.7 H Gran % 60.3 Lymphocytes % 27.5 Monocytes % 11.4 H Eosinophils % 0.7 Basophils % 0.1 Sodium 136 Potassium 4.8 H Chloride 97 L Carbon Dioxide 26.0 Anion Gap 13.0 BUN 34 H Creatinine 2.2 H Estimated GFR 23 Random Glucose 112 H Calcium 8.7 L Total Bilirubin 0.20 AST 19 ALT 13 Alkaline Phosphatase 76 Total Protein 6.1 L Albumin 3.1 L Globulin 3.0 Albumin/Globulin Ratio 1.0 L DVT/PE Assessment - Risk for VTE Risk for VTE: No Risk Level: Moderate Risk Assessment Date: 03/14/18 Risk Assessment Time: 10:58 VTE Orders Placed or Will Be Placed: Yes - Active Medicaitons Current Medications: Current Medications Amlodipine Besylate (Norvasc) 2.5 mg PO BID PRN PRN Reason: HYPERTENSIVE EMERGENCY Aspirin (Ecotrin (Ec)) 81 mg PO DAILY [facility] Last Admin: 03/15/18 10:21 Dose: 81 mg Diltiazem HCl (Cardizem Cd) 120 mg PO DAILY [facility] Last Admin: 03/15/18 10:21 Dose: 120 mg Enoxaparin Sodium (Lovenox) 30 mg SQ DAILY [facility] Last Admin: 03/15/18 10:21 Dose: 30 mg Furosemide (Lasix) 20 mg PO DAILY [facility] Last Admin: 03/15/18 10:21 Dose: 20 mg Hydralazine HCl (Apresoline) 10 mg PO TID [facility] Last Admin: 03/15/18 10:13 Dose: Not Given Ciprofloxacin Lactate (Cipro) 400 mg in 200 mls @ 200 mls/hr IVPB Q12H [facility] Stop: 03/19/18 02:01 Last Infusion: 03/15/18 03:26 Dose: Infused Metronidazole/Sodium Chloride (Flagyl) 500 mg in 100 mls @ 100 mls/hr IVPB Q8H [facility] Stop: 03/18/18 22:01 Last Infusion: 03/15/18 06:08 Dose: Infused Sodium Chloride () 1,000 mls @ 50 mls/hr IV .Q20H [facility] Last Admin: 03/15/18 06:10 Dose: Not Given Levothyroxine Sodium (Synthroid) 112 mcg PO DAILYTHY [facility] Last Admin: 03/15/18 06:08 Dose: 112 mcg Morphine Sulfate (Morphine Sulfate) 2 mg IVP Q4H PRN PRN Reason: ABDOMINAL PAIN Last Admin: 03/15/18 05:00 Dose: 2 mg Multivitamins/Minerals (Centrum) 1 tab PO DAILY [facility] Last Admin: 03/15/18 10:21 Dose: 1 tab Simvastatin (Zocor) 40 mg PO QHS [facility] Last Admin: 03/14/18 21:34 Dose: 40 mg AMI Plan - Labs Result Diagrams: 03/15/18 06:15 03/15/18 06:15
--- NOTE | 2018-03-15 15:03 | Physical Therapy Tx Note ---
Physical Therapy Tx Note - Treatment Note Tolerated: Fair Total Time Spent With Patient: 25 Physical Therapy Tx Note: Detail (Pt in bed w/HOB elevated, awake/alert, cooperative for therapy. Performed 10 reps each of ankle df/pf, heel slides, hip abduction, hip adduction, short arc quads; shoulder flexion and abduction and elbow flexion/extension B. Required min assist to go through full available range of motion in L LE and L UE. Pt declined getting up in chair after exercise; pt's and nephew arrived. Pt left in bed w/HOB elevated w/call light in reach and lemon glycerin swab provided. Nrsg notified.) Physical Therapy Problem List: Detail (1) Assistance with bed mobility and transfers 2) Decreased LE strength 3) Decreased endurance for physical activity 4) Impaired ambulation (limited distance)) Physical Therapy Goals: 1) The patient will acheive supine to sit with supervision for safety and verbal cues for technique. 2) The patient will ambulate household distances with appropriate assistive distance with CG and verbal cues due to visual deficits. 3) The patient will acheive all transfers with CG for safety Physical Therapy Plan: PT 1 time a day M-F for gait training, transfer training , bed mobility and LE ROM and strengthening exercises.
[2018-03-15] MEDS ORDERED: DIPHENHYDRAMINE HCL 50 MG/ML VIAL IVP ONE (20:51)
[2018-03-15] MEDS: SIMVASTATIN 20 MG TABLET PO SCH (21:29)
[2018-03-16] MEDS: CIPROFLOXACIN LACTATE/D5W 400 MG/200 ML BAG IVPB SCH (02:09)
[2018-03-16] MEDS: 0.9 % SODIUM CHLORIDE 1000ML 1,000 ML IV SCH (03:37)
[2018-03-16 06:30] LABS: BASO % 0.3 % (0-6); EOS % 2.6 % (0-6); GRAN % 51.7 % (47-80); HEMATOCRIT 35.9 % (35.0-47.0); HEMOGLOBIN 11.6 gm/dl (11.6-16.0); LYMPH % 33.1 % (16-45); MEAN CELL VOLUME 94.5 fl (81-97); MEAN CORPUSCULAR HEMOGLOBIN 30.5 pg (27-33); MEAN CORPUSCULAR HGB CONC 32.3 g/dl (32-36); MEAN PLATELET VOLUME 9.9 fl (7.4-10.4); MONO % 12.3 % (0-9); PLATELET COUNT 259 K/uL (130-400); RED CELL DISTRIBUTION WIDTH 13.7 % (11.5-14.5); WHITE BLOOD COUNT W/O DIFF 7.4 K/uL (4.2-12.2)
[2018-03-16 06:52] LABS: CREATININE 2.1 mg/dL (0.5-0.9)
[2018-03-16] MEDS: METRONIDAZOLE IVPB 500 MG/100 ML BAG IVPB SCH (07:04)
[2018-03-16] MEDS: LEVOTHYROXINE SOD 112 MCG TAB PO SCH (07:04)
[2018-03-16] MEDS ORDERED: DIPHENHYDRAMINE ELIXIR 25MG/10ML UD PO PRN (10:15)
[2018-03-16] MEDS ORDERED: DICYCLOMINE HCL 10 MG CAPSULE PO PRN (10:16)
[2018-03-16] MEDS ORDERED: ACETAMINOPHEN W/ CODEINE 300MG/30MG TABLET PO PRN (10:17)
--- NOTE | 2018-03-16 11:30 | Physical Therapy Tx Note ---
Physical Therapy Tx Note - Treatment Note Tolerated: Good Total Time Spent With Patient: 15 Physical Therapy Tx Note: Detail (The patient was up in chair when PT arrived. The patient ambulated with standard walker with CG of 1 and occasional verbal cues due to visual deficits, a distance of 15 feet x 1. After working in bathroom with OT, the patient ambulated 5 feet x 1 with CG of 1. The patient required CG for sit to and from stand transfer and occasional verbal cues due to visual deficits. The patient's mobility was greatly improved today.) Physical Therapy Problem List: Detail (1) Assistance with bed mobility and transfers 2) Decreased LE strength 3) Decreased endurance for physical activity 4) Impaired ambulation (limited distance)) Physical Therapy Goals: 1) The patient will acheive supine to sit with supervision for safety and verbal cues for technique. 2) The patient will ambulate household distances with appropriate assistive distance with CG and verbal cues due to visual deficits. 3) The patient will acheive all transfers with CG for safety (Goal Met) Physical Therapy Plan: PT 1 time a day M-F for gait training, transfer training , bed mobility and LE ROM and strengthening exercises.
[2018-03-16] MEDS: DILTIAZEM HCL 120 MG ER CAPSULE PO SCH (11:46)
[2018-03-16] MEDS: ENOXAPARIN 30 MG/0.3 ML SYR SQ SCH (11:46)
[2018-03-16] MEDS: ASPIRIN 81 MG TABEC PO SCH (11:46)
[2018-03-16] MEDS: FUROSEMIDE 20 MG TABLET PO SCH (11:46)
[2018-03-16] MEDS: MULTIVITAMINS/MINERALS TABLET PO SCH (11:46)
[2018-03-16] MEDS: HYDRALAZINE HCL 10 MG TABLET PO SCH ×3 (11:46→22:00)
[2018-03-16] MEDS: FLUTICASONE PROPIONATE 50MCG NASAL 16 GM BTL SCH (11:47)
--- NOTE | 2018-03-16 12:00 | Occupational Therapy Tx Note ---
Occupational Therapy Tx Note - Treatment Note Tolerated: Fair Total Time Spent With Patient: 30 (ADL) Occupational Therapy Treatment Note: Detail (S: Pt up in chair, she is ready to participate in therapy. O: Pt transported to bathroom via wheelchair. Pt able to doff gown with min assist, complete washing face, chest, arms after set up, she required assist for back. Donned gown with mod assist. Pt able to brush teeth and dentures with set up and min assist to apply toothpaste to toothbrush. Pt reports she is unable to comb hair, it was completed per OT. Pt amb with PT back to chair. A: Min to mod assist for grooming/hygiene tasks , endurance improving.) Occupational Therapy Problem List: Detail (1. Decreased Ind with functional mobility. 2. Decreased Ind with self cares. 3. Significant pain thoughout.) Occupational Therapy Goals: 1. Pt will be Ind with supine to sit. 2. Pt will be Ind with grooming and hygiene tasks. 3. Pt will demonstrate functional froilan UE ROM and strength to participate in self cares. 4. Pt will be Ind with upper body dressing. Prognosis: Good Occupational Therapy Plan: OT 2-4 times per week to address endurance, self cares and functional mobility.
--- NOTE | 2018-03-16 12:41 | Physician Progress Note ---
Subjective - Date Date of Physician Progress Note: 03/16/18 - Subjective Location: Abdomen (LUQ, LLQ) Objective - Vital Signs Vital Signs: Vital Signs - Last 24 Hrs Temp Pulse Resp BP BP Pulse Ox 03/16/18 09:45 97.9 F 62 13 150/65 97 03/16/18 09:00 14 03/16/18 06:00 98.4 F 56 L 16 190/89 97 03/16/18 02:00 62 185/97 03/16/18 01:00 97.4 F L 74 17 196/102 94 L 03/15/18 20:58 98.0 F 55 L 17 186/99 95 03/15/18 17:00 48 L 18 166/91 03/15/18 13:00 39 L 16 137/64 93 L - General General Appearance: Alert, Oriented x3, Cooperative, No acute distress Limitations: No limitations - Head Head exam: Normal inspection - Eye Eye exam: Other (left eye serous drainage) - ENT ENT exam: Normal exam, Mucous membranes dry Ear exam: Normal external inspection. negative: External canal tenderness Nasal Exam: Normal inspection. negative: Discharge, Sinus tenderness Mouth exam: Normal external inspection, Tongue normal Teeth exam: Normal inspection. negative: Dental caries Throat exam: Normal inspection. negative: Tonsillar erythema, Tonsillar exudate - Neck Neck exam: Normal inspection, Full ROM. negative: Tenderness - Respiratory Respiratory exam: Normal lung sounds bilaterally. negative: Respiratory distress - Cardiovascular Cardiovascular Exam: Normal heart sounds, Bradycardia Peripheral Pulses: 2+: Radial (R), Radial (L), Dorsalis Pedis (R), Dorsalis Pedis (L) - GI/Abdominal GI/Abdominal exam: Soft, Normal bowel sounds, Tenderness (LLQ tenderness with palpation) - Rectal Rectal exam: Deferred - exam: Deferred - Extremities Extremities exam: Normal inspection, Full ROM, Normal capillary refill, Pedal edema (1+ bilaterally). negative: Tenderness - Back Back exam: Reports: Normal inspection, Full ROM. Denies: Muscle spasm, Rash noted, Tenderness - Neurological Neurological exam: Alert, Oriented X3 - Psychiatric Psychiatric exam: Normal affect, Normal mood - Skin Skin exam: Dry, Intact, Normal color, Warm Assessment and Plan - Assessment and Plan (1) Colitis Current Visit: Yes Status: Acute Base Code: K52.9 - NONINFECTIVE GASTROENTERITIS AND COLITIS, UNSPECIFIED Comment: 03/16/18: -Abd/pelvic CT indicated nonspecific colitis with diverticulosis -D/C Cipro 400mg IV BID and FLagyl 500mg IV q8h -Has been tolerating advanced diet -Will transition from Morphine 2mg q4h prn pain to Bentyl 10mg PO TID prn and Tylenol w/codeine q6h prn abd pain -WBC 7.4, patient has remained afebrile -Encouraged PO fluid intake (2) Hypertension Current Visit: Yes Status: Acute Base Code: I10 - ESSENTIAL (PRIMARY) HYPERTENSION Comment: 03/16/18: -History of HTN -Continue current dose of Cardizem 120mg ER daily -Will add Hydralazine 10mg TID, hold for SBP<140 -Norvasc 2.5mg prn SBP>160 -Will avoid TAMIKA/ARB due to CKD -VS q4h (3) Chronic kidney disease Current Visit: Yes Status: Acute Base Code: N18.9 - CHRONIC KIDNEY DISEASE, UNSPECIFIED Comment: 03/16/18: -Patient poor historian -After reviewing previous labs, baseline Cr 1.8, BUN 42, GFR 27 (June 2017). -Current CR 2.1, BUN 31, GFR 24 -Will continue to monitor and avoid nephrotoxic agents (4) Weakness Current Visit: Yes Status: Acute Base Code: R53.1 - WEAKNESS Comment: : -Patient reports worsening weakness x several months -PT/OT evaluation -Patient up with walker and 1-2 assist at this time -Plan to dc to [facility], tomorrow (5) Dysphagia Current Visit: Yes Status: Acute Base Code: R13.10 - DYSPHAGIA, UNSPECIFIED Comment: 03/16/18: -Patient expresses difficulty swallowing that has been worsening over the past 2 weeks -Swallow eval determined pureed diet is appropriate for patient -Staff to assist with feedings as needed, patient to be placed 90 degrees upright for feedings (6) Bradycardia Current Visit: Yes Status: Acute Base Code: R00.1 - BRADYCARDIA, UNSPECIFIED Comment: 03/16/18: -History of chronic a-fib -Recent cardiology appointment in Jan 2018, EKG indicated rate 55 -Continue Cardizem 120mg ER daily -copying machine mechanic indicates a-fib, rate controlled (7) DVT (deep venous thrombosis) Current Visit: Yes Status: Acute Base Code: I82.409 - ACUTE EMBOLISM AND THOMBOS UNSP DEEP VN UNSP LOWER EXTREMITY Comment: 03/16/18: -Patient is high risk due to age, hospitalization, and comorbidities -Lovenox 30mg SQ daily due to kidney function (8) Full code status Current Visit: Yes Status: Acute Base Code: Z78.9 - OTHER SPECIFIED HEALTH STATUS Comment: 03/16/18: Patient is a full code Results - Labs Result Diagrams: 03/16/18 06:15 03/16/18 06:15 Labs Last 24 Hours: Laboratory Results - last 24 hr 03/16/18 03/16/18 06:15 06:15 WBC 7.4 RBC 3.80 Hgb 11.6 Hct 35.9 MCV 94.5 MCH 30.5 MCHC 32.3 RDW 13.7 Plt Count 259 MPV 9.9 Gran % 51.7 Lymphocytes % 33.1 Monocytes % 12.3 H Eosinophils % 2.6 Basophils % 0.3 Sodium 138 Potassium 4.1 Chloride 97 L Carbon Dioxide 25.0 Anion Gap 16.0 BUN 31 H Creatinine 2.1 H Estimated GFR 24 Random Glucose 102 Calcium 9.3 DVT/PE Assessment - Risk for VTE Risk for VTE: No Risk Level: Moderate Risk Assessment Date: 03/14/18 Risk Assessment Time: 10:58 VTE Orders Placed or Will Be Placed: Yes - Active Medicaitons Current Medications: Current Medications Acetaminophen/Codeine Phosphate (Tylenol #3) 1 udtab PO Q6H PRN PRN Reason: PAIN - MILD TO MODERATE (1-7) Amlodipine Besylate (Norvasc) 2.5 mg PO BID PRN PRN Reason: HYPERTENSIVE EMERGENCY Aspirin (Ecotrin (Ec)) 81 mg PO DAILY [facility] Last Admin: 03/16/18 11:46 Dose: 81 mg Dicyclomine HCl (Bentyl) 10 mg PO TID PRN PRN Reason: ABDOMINAL PAIN Diltiazem HCl (Cardizem Cd) 120 mg PO DAILY [facility] Last Admin: 03/16/18 11:46 Dose: 120 mg Diphenhydramine HCl (Benadryl Elixir) 12.5 mg PO Q6H PRN PRN Reason: NAUSEA Enoxaparin Sodium (Lovenox) 30 mg SQ DAILY [facility] Last Admin: 03/16/18 11:46 Dose: 30 mg Fluticasone Propionate (Flonase) 1 spray NA DAILY [facility] Last Admin: 03/16/18 11:47 Dose: 1 spray Furosemide (Lasix) 20 mg PO DAILY [facility] Last Admin: 03/16/18 11:46 Dose: 20 mg Hydralazine HCl (Apresoline) 10 mg PO TID [facility] Last Admin: 03/16/18 11:46 Dose: 10 mg Levothyroxine Sodium (Synthroid) [facility] Last Admin: 03/16/18 07:04 Dose: 112 mcg Multivitamins/Minerals (Centrum) 1 tab PO DAILY [facility] Last Admin: 03/16/18 11:46 Dose: 1 tab Simvastatin (Zocor) 40 mg PO QHS [facility] Last Admin: 03/15/18 21:29 Dose: 40 mg AMI Plan - Labs Result Diagrams: 03/16/18 06:15 03/16/18 06:15
--- NOTE | 2018-03-16 18:34 | Swallow Tx Note ---
Swallow Tx Note - Time with Patient Total Time Spent With Patient (Min): 10 - Treatment Note Swallow Treatment Note: Patient refused swallow evaluation this date stating "Someone gave me a pill and I'm high as a kite." Therapist attempted to coax patient to participate in evaluation but was unable to do so. Nursing also attempted to educate patient on the importance of assessment for safety of swallow given history of difficulty during this hospitalization but were also unsuccessful. Patient to continue on modified diet: Pureed and thin but continues to require a throrough dysphagia assessment to determine the safest diet. Nursing to continue to monitor given this difference in behavior.
[2018-03-16] MEDS: AMLODIPINE BESYLATE 5MG TAB PO PRN (18:56)
[2018-03-16] MEDS ORDERED: CALCIUM CARBONATE 500 MG TAB.CHEW PO PRN (20:36)
[2018-03-16] MEDS: SIMVASTATIN 20 MG TABLET PO SCH (22:00)
[2018-03-17] MEDS: AMLODIPINE BESYLATE 5MG TAB PO PRN (05:57)
[2018-03-17] MEDS: LEVOTHYROXINE SOD 112 MCG TAB PO SCH (06:00)
[2018-03-17 06:54] LABS: CREATININE 1.9 mg/dL (0.5-0.9)
--- NOTE | 2018-03-17 08:58 | Discharge Summary ---
Providers Discharge Summary Date: 03/17/18 Date of admission: 03/14/18 10:30 Expected Date of Discharge: 03/17/18 Attending physician: MYRTLE BENSON Primary care physician: MYRTLE BENSON Physical Exam - Vital Signs Vital Signs: Vital Signs - Last 24 Hrs Temp Pulse Resp BP BP BP Pulse Ox 03/17/18 07:55 16 03/17/18 06:00 98.1 F 72 16 193/99 94 L 03/17/18 02:00 99.0 F 68 16 190/100 98 03/16/18 22:00 98.6 F 66 17 196/95 96 03/16/18 18:40 98.6 F 69 14 189/92 96 03/16/18 15:13 97.9 F 122/71 03/16/18 12:45 122/71 03/16/18 09:45 97.9 F 62 13 150/65 97 03/16/18 09:00 14 - General General Appearance: Alert, Oriented x3, Cooperative, No acute distress Limitations: No limitations - Head Head exam: Normal inspection - Eye Eye exam: Other (left eye serous drainage) Pupils: Normal accommodation - ENT ENT exam: Normal exam, Mucous membranes dry Ear exam: Normal external inspection. negative: External canal tenderness Nasal Exam: Normal inspection. negative: Discharge, Sinus tenderness Mouth exam: Normal external inspection, Tongue normal Teeth exam: Normal inspection. negative: Dental caries Throat exam: Normal inspection. negative: Tonsillar erythema, Tonsillar exudate - Neck Neck exam: Normal inspection, Full ROM. negative: Tenderness - Respiratory Respiratory exam: Normal lung sounds bilaterally. negative: Respiratory distress - Cardiovascular Cardiovascular Exam: Normal heart sounds Peripheral Pulses: 2+: Radial (R), Radial (L), Dorsalis Pedis (R), Dorsalis Pedis (L) - GI/Abdominal GI/Abdominal exam: Soft, Normal bowel sounds, Tenderness (mild LLQ tenderness with palpation) - Rectal Rectal exam: Deferred - exam: Deferred - Extremities Extremities exam: Normal inspection, Full ROM, Normal capillary refill, Pedal edema (1+ bilaterally). negative: Tenderness - Back Back exam: Reports: Normal inspection, Full ROM. Denies: Muscle spasm, Rash noted, Tenderness - Neurological Neurological exam: Abnormal gait, Alert, Oriented X3 - Psychiatric Psychiatric exam: Normal affect, Normal mood - Skin Skin exam: Dry, Intact, Normal color, Warm Hospitalization - Hospitalization Admission Diagnosis: colitis, bradycardia, hypertension - Problem List/Discharge Diagnosis (1) Colitis Status: Acute Base Code: K52.9 - NONINFECTIVE GASTROENTERITIS AND COLITIS, UNSPECIFIED Comment: 03/17/18: -Abd/pelvic CT indicated nonspecific colitis with diverticulosis -Cipro and Flagyl discontinued after 3 days of IV antibiotics -Has been tolerating advanced diet with occasional nausea -Bentyl 10mg PO TID prn and Tylenol w/codeine q6h prn abd pain -Tums and Benadryl 12.5mg PO for nasusea -WBC 7.4, patient has remained afebrile -Encouraged PO fluid intake (2) Hypertension Status: Acute Base Code: I10 - ESSENTIAL (PRIMARY) HYPERTENSION Comment: 03/17: -History of HTN -BP 162/94 -Continue current dose of Cardizem 120mg ER daily -Will add Hydralazine 10mg TID, hold for SBP<140 -Norvasc 2.5mg prn SBP>160 -Will avoid TAMIKA/ARB due to CKD -VS q4h (3) Chronic kidney disease Status: Acute Base Code: N18.9 - CHRONIC KIDNEY DISEASE, UNSPECIFIED Comment : 03/17/18: -Patient poor historian -After reviewing previous labs, baseline Cr 1.8, BUN 42, GFR 27 (June 2017). -Current CR 1.9, BUN 28, GFR 27 -Will continue to monitor and avoid nephrotoxic agents (4) Weakness Status: Acute Base Code: R53.1 - WEAKNESS Comment: 03/17/18: -Patient reports worsening weakness x several months -PT/OT evaluation -Patient up with walker and 1-2 assist at this time -Plan to dc [facility] via EMS (5) Dysphagia Status: Acute Base Code: R13.10 - DYSPHAGIA, UNSPECIFIED Comment: 03/17/18: -Patient expresses difficulty swallowing that has been worsening over the past 2 weeks -Swallow eval ordered, unable to assess patient due to patient reports of pain and fatigue -Pureed diet -Staff to assist with feedings as needed, patient to be placed 90 degrees upright for feedings (6) Bradycardia Status: Acute Base Code: R00.1 - BRADYCARDIA, UNSPECIFIED Comment: 03/17/18: -History of chronic a-fib -Recent cardiology appointment in Jan 2018, EKG indicated rate 55 -Continue Cardizem 120mg ER daily -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 Patient reported being seen at [facility] three times recently and told that she had a UTI. Patient most recently completed Macrodantin, denies any further urinary symptoms at this time. Patient is a poor historian, difficult to obtain accurate history. Patient lives at home with her , typically uses a walker with ambulation. Past medical history includes CKD, HTN, chronic afib (ASA 81mg), chronic low back pain PCP: Dr. Benson Parent Coach: Dr. Ye ED Course: VS: Temp 97.7F, HR 58, RR 20, BP 219/117, Pulse ox 97% Patient received one dose of Clonidine for hypertension, minimal results in BP improvement 250mL normal saline UA negative Abd/Pelvic CT: colitis Cr 1.7, BUN 32, GFR 30 and consistent with recent labs and CKD 03/14/18: Patient A&O x 3, resting comfortably in bed. Patient reports continued left sided abdominal pain and bilateral leg pain. Patient denies any further diarrhea or nausea. Denies urinary symptoms, shortness of breath, or chest pain. Patient reports continued weakness and fatigue. 03/17/18: Patient A&O x 3, resting comfortably in bed. Patient reports mild left- sided abdominal pain only to palpation. Has had minimal BM's, reports passing gas. Patient has been tolerating PO meals with occasional nausea. BP has remained elevated, will continue with Hydralazine 10mg TID and Norvasc 2.5mg BID prn SBP>150. Patient able to participate in PT/OT while hospitalized, will be transferring to [facility] for further PT/OT. Chest x-ray 03/16/18: no focal pulmonary consolidations, borderline cardiac enlargement Procedures: Imaging and X-Rays 03/13/18 11:06 ABDOMEN/PELVIS WO CONTRAST [CT] Stat 03/16/18 07:35 CHEST 1 VIEW [RAD] Routine Abnormal Labs: Abnormal Lab Results 03/13/18 03/13/18 03/13/18 Range/Units 10:05 10:30 10:30 RBC (3.80-5.40) M/uL Hgb (11.6-16.0) gm/dl Hct (35.0-47.0) % MCHC (32-36) g/dl MPV (7.4-10.4) fl Monocytes % 9.6 H (0-9) % Potassium 4.6 H (3.4-4.5) mmol/L Chloride 97 L (98-107) mmol/L BUN 32 H (8-23) mg/dL Creatinine 1.7 H (0.5-0.9) mg/dL Random Glucose 111 H (74-109) mg/dL Calcium (8.8-10.2) mg/dL Alkaline Phosphatase 111 H (45-87) U/L Total Protein (6.6-8.7) g/dL Albumin (4.0-5.0) g/dL Albumin/Globulin Ratio 1.0 L (1.1-1.8) Urine Protein 100 mg/dl H (NEGATIVE) 03/14/18 03/14/18 03/15/18 Range/Units 06:20 06:20 06:15 RBC 3.24 L 3.18 L (3.80-5.40) M/uL Hgb 9.7 L 9.8 L (11.6-16.0) gm/dl Hct 31.3 L 30.4 L (35.0-47.0) % MCHC 31.0 L (32-36) g/dl MPV 10.7 H (7.4-10.4) fl Monocytes % 11.4 H (0-9) % Potassium (3.4-4.5) mmol/L Chloride (98-107) mmol/L BUN 31 H (8-23) mg/dL Creatinine 2.0 H (0.5-0.9) mg/dL Random Glucose (74-109) mg/dL Calcium (8.8-10.2) mg/dL Alkaline Phosphatase (45-87) U/L Total Protein 6.1 L (6.6-8.7) g/dL Albumin 3.1 L (4.0-5.0) g/dL Albumin/Globulin Ratio 1.0 L (1.1-1.8) Urine Protein (NEGATIVE) 03/15/18 03/16/18 03/16/18 Range/Units 06:15 06:15 06:15 RBC (3.80-5.40) M/uL Hgb (11.6-16.0) gm/dl Hct (35.0-47.0) % MCHC (32-36) g/dl MPV (7.4-10.4) fl Monocytes % 12.3 H (0-9) % Potassium 4.8 H (3.4-4.5) mmol/L Chloride 97 L 97 L (98-107) mmol/L BUN 34 H 31 H (8-23) mg/dL Creatinine 2.2 H 2.1 H (0.5-0.9) mg/dL Random Glucose 112 H (74-109) mg/dL Calcium 8.7 L (8.8-10.2) mg/dL Alkaline Phosphatase (45-87) U/L Total Protein 6.1 L (6.6-8.7) g/dL Albumin 3.1 L (4.0-5.0) g/dL Albumin/Globulin Ratio 1.0 L (1.1-1.8) Urine Protein (NEGATIVE) 03/17/18 Range/Units 05:35 RBC (3.80-5.40) M/uL Hgb (11.6-16.0) gm/dl Hct (35.0-47.0) % MCHC (32-36) g/dl MPV (7.4-10.4) fl Monocytes % (0-9) % Potassium (3.4-4.5) mmol/L Chloride (98-107) mmol/L BUN 28 H (8-23) mg/dL Creatinine 1.9 H (0.5-0.9) mg/dL Random Glucose (74-109) mg/dL Calcium (8.8-10.2) mg/dL Alkaline Phosphatase (45-87) U/L Total Protein (6.6-8.7) g/dL Albumin (4.0-5.0) g/dL Albumin/Globulin Ratio (1.1-1.8) Urine Protein (NEGATIVE) Condition at Discharge: (2) Stable Discharge Medications - Discharge Medications Prescriptions: Acetaminop W/ Codeine 300/30Mg [Tylenol with Codeine #3] 1 udtab PO Q6H PRN #20 tablet PRN Reason: Pain - Mild To Moderate (1-7) Home Medications: Ambulatory Orders Aspirin [Aspir 81] 81 mg PO QD tab 07/12/17 [Last Taken 1 Day Ago ~03/12/18] Multivitamin [Multi-Vitamin Daily] 1 each PO DAILY tab 07/12/17 [Last Taken 1 Day Ago ~03/12/18] Clotrimazole [Fungi Cure] 60 ml TP ASDIR spray 09/07/17 [Last Taken 1 Day Ago ~ 03/12/18] Ondansetron [Ondansetron Odt] 4 tab PO DAILY 30 Days #15 tab 03/08/18 [Last Taken 1 Day Ago ~03/12/18] Prednisolone Acetate 1 drop TOP DAILY 03/08/18 [Last Taken 1 Day Ago ~03/12/18] Furosemide [Lasix] 20 mg PO DAILY 03/13/18 [Last Taken 1 Day Ago ~03/12/18] Acetaminop W/ Codeine 300/30Mg [Tylenol with Codeine #3] 1 udtab PO Q6H PRN #20 tablet 03/17/18 [Last Taken Unknown] Amlodipine Besylate [Norvasc] 2.5 mg PO BID PRN tab 03/17/18 [Last Taken Unknown] Calcium Carbonate [Tums] 500 mg PO Q4H PRN tab.chew 03/17/18 [Last Taken Unknown] Dicyclomine HCl [Bentyl] 10 mg PO TID PRN cap 03/17/18 [Last Taken Unknown] Diltiazem HCl [Cardizem Cd] 120 mg PO DAILY cap.er.24h 03/17/18 [Last Taken Unknown] Diphenhydramine HCl Elixir [Benadryl Elixir] 12.5 mg PO Q6H PRN ml 03/17/18 [ Last Taken Unknown] Hydralazine HCl [Apresoline] 10 mg PO TID tablet 03/17/18 [Last Taken Unknown] Discharge Plan - Discharge Instructions Activity at Discharge: As Per Physical Therapy Diet at Discharge: Other (pureed diet) Quality Measures - Quality Measures Quality Measures: Advance Directives, Documentation of Current Medications in Medical Record, Elder Maltreatment Screen and Follow-Up Plan, Screening for High Blood Pressure and F/U Documented - Current Medications Quality Measure: Measure #130: Documentation of Current Medications Documentation of Current Medications: <Current Medications Documented/Reviewed> [E7462] - Blood Pressure Screening Quality Measure: Screening for High Blood Pressure and Follow-Up Documented Does Patient Have Any of the Following: Active Dx of HTN Blood Pressure Classification: Pre-Hypertensive BP Reading Systolic Measurement: 122 Diastolic Measurement: 71 Screening for High Blood Pressure: Patient Exclusion, Hx of HTN [G9744] - Advance Directives Quality Measure: Measure #47: Care Plan Advance Directives Established: No Advance Directives Information Provided To Patient: Declined Advance Directives on File: No Living Will: Yes Power of Production Finisher: No Advance Care Planning: <Care Plan/Decision Maker Not Decided; Discussed & Documented> [1128F] - Elder Abuse Suspicion Index Screening: Elder Abuse Suspicion Index Screening Rely on people for bathing, dressing, shopping, banking, etc: No Prevented from getting food, clothes, medication, etc: No Made to feel shamed or threatened by someone: No Forced to sign papers or use money against will: No Feel afraid, touched in ways not wanted or hurt physically: No Poor eye contact, withdrawn, malnourished, cuts or bruises: No Screening Result: Negative result EASI Reference Information: Nicole HOFFMAN, Jeff C, Garden[place] D, Az Pickett.Development and validation of a tool to assist physicians identification of elder abuse: The Elder Abuse Suspicion Index (EASI ). Journal of Elder Abuse and Neglect, 2008; 20 (3): 276-300. - Elder Maltreatment Screen Quality Measures: Elder Maltreatment Screen and Follow-Up Plan Elder Maltreatment Screen: <Negative, No Follow-Up Plan Required> [G8734]
[2018-03-17] MEDS: DILTIAZEM HCL 120 MG ER CAPSULE PO SCH (10:26)
[2018-03-17] MEDS: MULTIVITAMINS/MINERALS TABLET PO SCH (10:26)
[2018-03-17] MEDS: FUROSEMIDE 20 MG TABLET PO SCH (10:26)
[2018-03-17] MEDS: ASPIRIN 81 MG TABEC PO SCH (10:26)
[2018-03-17] MEDS: HYDRALAZINE HCL 10 MG TABLET PO SCH (10:26)
[2018-03-17] MEDS: FLUTICASONE PROPIONATE 50MCG NASAL 16 GM BTL SCH (10:26)
[2018-03-17] MEDS: ENOXAPARIN 30 MG/0.3 ML SYR SQ SCH (10:27)
--- NOTE | 2018-03-18 10:30 | RADIOLOGY REPORT ---
EXAM: CHEST 1 VIEW HISTORY: COLITIS, WEAKNESS, CHEST PAIN. TECHNIQUE: Single AP frontal view of the chest. COMPARISON: CT abdomen and pelvis 03/13/2018. FINDINGS: Borderline cardiac silhouette enlargement. Thoracic aorta calcifications are noted. No focal pulmonary consolidation. No significant pleural fluid collection appreciated radiographically. No visible pneumothorax. Suture anchor within the right humeral head. IMPRESSION: 1. NO FOCAL ACUTE LUNG FINDINGS. 2. BORDERLINE CARDIAC SILHOUETTE ENLARGEMENT. JOB NUMBER: [id number] [facility]
== END 2018-03-17 11:15 | DRG 392 ==
LOC: ER 09:34 → MEDSURG 16:56 → OBSVTOIN 03-14 10:30
PROVIDERS: ADMIT Internal Medicine; ATTEND Internal Medicine
DX: K52.9 Noninfective gastroenteritis and colitis, unspecified (principal); I82.409 Acute embolism and thrombosis of unspecified deep veins of unspecified lower extremity; R10.32 Left lower quadrant pain; R13.10 Dysphagia, unspecified; R53.1 Weakness; R00.1 Bradycardia, unspecified; I48.91 Unspecified atrial fibrillation; I10 Essential (primary) hypertension; E03.9 Hypothyroidism, unspecified; N18.9 Chronic kidney disease, unspecified; R60.9 Edema, unspecified
CPT/HCPCS: 85025 ×2; 80053 ×2; 81003; 74176; G0378 ×8; J0744 ×2; J2270 ×2; 71045; 80048; 96365; 96366; 96374; 96375; 97110; 97530; 97535; 99223; 99233; 99239; 99285; J1200; J1650; J2550

== ENCOUNTER 2018-05-02 14:44 | Emergency (ER) | payer MEDICARE, BC ==
--- NOTE | 2018-05-02 15:26 | Emergency Department Record ---
History of Present Illness - General Chief complaint: Eye Problem Stated complaint: foreign lobject rt eye Time Seen by Provider: 05/02/18 15:08 Source: Patient, RN notes reviewed Mode of Arrival: Wheelchair - History of Present Illness Initial comments: ecchymosis around the right eye and the subconjuctival hemmorrage right eye. 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 She doesn't recall traumatizing her eye. No falls. Patient says her vision is bad in the right eye and going to have catarract surgery after cleared by cardiology and Dr. Benson. Dr. Rod is he branch sales and service representative. Eye Dr Solomon at [facility]. She also has glaucoma. No headache and no eye pain. MD chief complaint: Eye redness Onset/Timin -: Hour(s) Onset Description: Sudden Location: Right eye Place: Home If Injury: None Severity scale (1-10): 1 If Pain, Quality: Other Consistency: Constant Context: Other Associated Symptoms: None Treatments Prior to Arrival: None - Related Data Home Medications Medication Instructions Recorded Confirmed Last Taken Brimonidine Tartrate/Timolol 1 drop EACH EYE BID 05/02/18 05/02/18 05/02/18 [Combigan 0.2%-0.5% Eye Drops] Previous Rx's Medication Instructions Recorded Hydralazine HCl [Apresoline] 10 mg PO TID tablet 03/17/18 Allergies Allergy/AdvReac Type Severity Reaction Status Date / Time No Known Drug Allergies Allergy Verified 05/02/18 14:55 Travel Screening - Travel/Exposure Within Last 30 Days Have you traveled within the last 30 days?: No - Travel/Exposure Within Last Year Have you traveled outside the [place] in the last year?: No - Additonal Travel Details Have you been exposed to anyone with a communicable illness?: No - Travel Symptoms Symptom Screening: None Review of Systems Reviewed: No additional complaints except as noted below Constitutional: Reports: As per HPI. Denies: Chills, Fever, Malaise, Night sweats, Weakness, Weight change Eyes: Reports: As per HPI. Denies: Eye discharge, Eye pain, Photophobia, Vision change ENT: Reports: As per HPI. Denies: Congestion, Dental pain, Ear pain, Epistaxis , Hearing loss, Throat pain Respiratory: Reports: As per HPI. Denies: Cough, Dyspnea, Hemoptysis, Stridor, Wheezes Cardiovascular: Reports: As per HPI. Denies: Arrhythmia, Chest pain, Dyspnea on exertion, Edema, Murmurs, Orthopnea, Palpitations, Paroxysmal nocturnal dyspnea, Rheumatic Fever, Syncope Endocrine: Reports: As per HPI. Denies: Fatigue, Heat or cold intolerance, Polydipsia, Polyuria Gastrointestinal: Reports: As per HPI. Denies: Abdominal pain, Constipation, Diarrhea, Hematemesis, Hematochezia, Melena, Nausea, Vomiting Genitourinary: Reports: As per HPI. Denies: Abnormal menses, Discharge, Dyspareunia, Dysuria, Frequency, Hematuria, Incontinence, Retention, Urgency Musculoskeletal: Reports: As per HPI. Denies: Arthralgia, Back pain, Gout, Joint swelling, Myalgia, Neck pain Skin: Reports: As per HPI. Denies: Bruising, Change in color, Change in hair/ nails, Lesions, Pruritus, Rash Neurological: Reports: As per HPI. Denies: Abnormal gait, Confusion, Headache, Numbness, Paresthesias, Seizure, Tingling, Tremors, Vertigo, Weakness Psychiatric: Reports: As per HPI. Denies: Anxiety, Auditory hallucinations, Depression, Homicidal thoughts, Suicidal thoughts, Visual hallucinations Hematological/Lymphatic: Reports: As per HPI. Denies: Anemia, Blood Clots, Easy bleeding, Easy bruising, Swollen glands Past Medical History - SOCIAL HISTORY Smoking Status: Never smoker Alcohol Use: None Drug Use: None - RESPIRATORY Hx Respiratory Disorders: No - CARDIOVASCULAR Hx Cardio Disorders: Yes Hx Edema: Yes Hx Hypertension: Yes Hx Irregular Heartbeat: Yes (Afib) Comment:: Pt unaware of when in Afib, "goes in and out without warning" no s/s - NEURO Hx Neuro Disorders: No - GI Hx GI Disorders: Yes Hx Abdominal Pain: Yes Hx Diverticulitis: Yes (Mar, 2016) Hx of Polyps: Yes - Hx Genitourinary Disorders: No Hx Kidney Stones: Yes (small on right) - ENDOCRINE Hx Endocrine Disorders: Yes Hx Thyroid Disease: Yes (hypo) - MUSCULOSKELETAL Hx Musculoskeletal Disorders: Yes Hx Arthritis: Yes Comment:: DDD-neck - PSYCH Hx Psych Problems: No - HEMATOLOGY/ONCOLOGY Hx Hematology/Oncology Disorders: Yes Hx Bruising: Yes (d/t NSAID & Asa) Family Medical History Any Significant Family History?: Yes Hx Heart Disease: Mother *Heart Comment: Son Physical Exam - General General Appearance: Alert, Oriented x3, Cooperative, No acute distress - Head Head exam: Normal inspection - Eye Eye exam: PERRL, EOMI, Other (large subconjunctival hemmorrhage right eye and blind in the left eye) Pupils: Normal accommodation - ENT ENT exam: Normal exam, Mucous membranes moist, Normal external ear exam, Normal orophraynx, TM's normal bilaterally Ear exam: Normal external inspection. negative: External canal tenderness Nasal Exam: Normal inspection. negative: Discharge, Sinus tenderness Mouth exam: Normal external inspection, Tongue normal Teeth exam: Normal inspection. negative: Dental caries Throat exam: Normal inspection. negative: Tonsillar erythema, Tonsillar exudate - Neck Neck exam: Normal inspection, Full ROM. negative: Tenderness - Respiratory Respiratory exam: Normal lung sounds bilaterally. negative: Respiratory distress - Cardiovascular Cardiovascular Exam: Regular rate, Normal rhythm, Normal heart sounds - GI/Abdominal GI/Abdominal exam: Soft, Normal bowel sounds. negative: Tenderness - Rectal Rectal exam: Deferred - exam: Deferred - Extremities Extremities exam: Normal inspection, Full ROM, Normal capillary refill. negative: Tenderness - Back Back exam: Reports: Normal inspection, Full ROM. Denies: Muscle spasm, Rash noted, Tenderness - Neurological Neurological exam: Alert, Normal gait, Oriented X3, Reflexes normal - Psychiatric Psychiatric exam: Normal affect, Normal mood - Skin Skin exam: Dry, Intact, Normal color, Warm Course Vital Signs 05/02/18 15:00 Temperature 98.2 F Pulse Rate 63 Respiratory 20 Rate Blood Pressure 196/99 Pulse Ox 100 - Reevaluation(s) Reevaluation #1: flurescein of corneal small abrasion, pupil is 2mm and reactive. slit lamp no hyphema. round pupil 05/02/18 15:35s 05/02/18 15:38 Reevaluation #2: discussed case with her opthamologist's office Dr Solomon and will set up a time for her to be seen. 05/02/18 15:39 Disposition Clinical Impression: Subconjunctival hemorrhage of right eye Atrial fibrillation Qualifiers: Atrial fibrillation type: chronic Qualified Code(s): I48.2 - Chronic atrial fibrillation Disposition: Home, Self-Care Condition: (2) Stable Additional Instructions: Go to Dr. Reynoso's office [phone] [place] [address] Time of Disposition: 15:44 Quality - Quality Measures Quality Measures: N/A - Blood Pressure Screening Does Patient Have Any of the Following: No, Active Dx of HTN Blood Pressure Classification: Hypertensive Reading Systolic Measurement: 196 Diastolic Measurement: 99 Screening for High Blood Pressure: Patient Exclusion, Hx of HTN [G9744]
[2018-05-02] MEDS ORDERED: EYE IRRIGATION SOLU. (SOD BOR/BORIC AC/H20/NACL) 118ML BTL OPTH ONE (15:37)
== END 2018-05-02 16:02 | disposition home or self-care (01) ==
LOC: ER 14:44
DX: H11.31 Conjunctival hemorrhage, right eye (principal); I48.2 Chronic atrial fibrillation; I10 Essential (primary) hypertension
CPT/HCPCS: 99283

== ENCOUNTER 2018-08-17 08:06 | Inpatient (IN) | payer MEDICARE, BC ==
--- NOTE | 2018-08-17 08:17 | Emergency Department Record ---
History of Present Illness - General Chief complaint: Extremity Problem Stated complaint: LEFT KNEE PAIN/SWELLING Time Seen by Provider: 08/17/18 08:09 Source: Patient, Family Mode of Arrival: Wheelchair Limitations: No limitations - History of Present Illness Initial comments: 88 yo female presents with left knee pain and swelling. The onset of pain and leg swelling was yesterday. She has mostly left knee and left hip pain. She denies any trauma or falls. She did first notice it when she moved her leg out from under a blanket. She did not specifically feel a pop. She has swelling from the knee distally. No history of fever. No left sided knee surgery. She normally ambulates with a walker but she is unable to bear weight. She denies DVT in the past. No other abrupt changes in her health. Dr Benson is her PCP. Hx of Afib, HTN, CKD, Chronic back pain, Colitis. She is on Xarelto. Dr Gibson is her orthopedist. MD Complaint: Extremity swelling, Joint pain -: Days(s) (1) Location: Left, Knee, Thigh History of Same: No -: Yes Arthralgia, Yes Myalgia Radiation: Proximal, Distal Quality: Aching Consistency: Constant Improves with: Immobilization Worsens with: Palpation, Weight bearing Associated Symptoms: Arthralgias - Related Data Home Medications Medication Instructions Recorded Confirmed Last Taken Acetaminop W/ Codeine 300/30Mg 1 tab PO Q6H PRN 08/17/18 08/17/18 08/17/18 07:00 [Tylenol #3] Allergies Allergy/AdvReac Type Severity Reaction Status Date / Time No Known Drug Allergies Allergy Verified 08/17/18 08:17 Review of Systems Constitutional: Denies: Chills, Fever, Malaise, Weakness Eyes: Denies: Eye discharge ENT: Denies: Congestion, Throat pain Respiratory: Denies: Cough, Dyspnea, Hemoptysis, Wheezes Cardiovascular: Denies: Chest pain, Palpitations, Syncope Endocrine: Denies: Fatigue, Polydipsia, Polyuria Gastrointestinal: Denies: Abdominal pain, Diarrhea, Nausea, Vomiting Genitourinary: Denies: Dysuria, Urgency Musculoskeletal: Reports: Arthralgia, Joint swelling Skin: Reports: Bruising, Change in color Neurological: Denies: Numbness, Weakness Psychiatric: Denies: Anxiety Hematological/Lymphatic: Denies: Easy bleeding, Easy bruising Past Medical History - SOCIAL HISTORY Smoking Status: Never smoker Drug Use: None - RESPIRATORY Hx Respiratory Disorders: No - CARDIOVASCULAR Hx Cardio Disorders: Yes Hx Edema: Yes Hx Hypertension: Yes Hx Irregular Heartbeat: Yes (Afib) Comment:: Pt unaware of when in Afib, "goes in and out without warning" no s/s - NEURO Hx Neuro Disorders: No - GI Hx GI Disorders: Yes Hx Abdominal Pain: Yes Hx Diverticulitis: Yes (Mar, 2016) Hx of Polyps: Yes - Hx Kidney Stones: Yes (small on right) - ENDOCRINE Hx Endocrine Disorders: Yes Hx Thyroid Disease: Yes (hypo) - MUSCULOSKELETAL Hx Musculoskeletal Disorders: Yes Hx Arthritis: Yes Comment:: DDD-neck - PSYCH Hx Psych Problems: No - HEMATOLOGY/ONCOLOGY Hx Hematology/Oncology Disorders: Yes Hx Bruising: Yes (d/t NSAID & Asa) Family Medical History Hx Heart Disease: Mother *Heart Comment: Son Physical Exam - General General Appearance: Alert, Oriented x3, Cooperative, No acute distress Limitations: No limitations - Head Head exam: Atraumatic, Normal inspection - Eye Eye exam: Normal appearance. negative: Conjunctival injection, Scleral icterus - ENT ENT exam: Normal exam, Mucous membranes moist Ear exam: Normal external inspection Nasal Exam: Normal inspection Mouth exam: Normal external inspection - Neck Neck exam: Normal inspection - Respiratory Respiratory exam: Normal lung sounds bilaterally. negative: Rhonchi, Stridor, Wheezes - GI/Abdominal GI/Abdominal exam: Soft. negative: Tenderness - Rectal Rectal exam: Deferred - exam: Deferred - Extremities Extremities exam: Calf tenderness, Joint swelling, Pedal edema (left), Tenderness (tender left knee to palpation), Other (the compartments are soft. The thigh is soft and non tender. The calf is mildly tender but very soft.). negative: Normal inspection, Full ROM Image of Full Body: 1 - on inspection she has some mild left knee swelling, no erythema, her left calf is visibly swollen, mild erythema, and mildly warm to palpation. Hip log roll is non painful. Knee is diffusely tender, not warm to the touch, pain with ROM, calf is warm, diffusely tender. Ankle is non tender. Skin is intact - Back Back exam: Denies: CVA tenderness (R), CVA tenderness (L) - Neurological Neurological exam: Alert, Oriented X3 - Psychiatric Psychiatric exam: Normal affect, Normal mood - Skin Skin exam: Erythema Course - Reevaluation(s) Reevaluation #1: 08/17/18 08:27 Vitals reviewed No acute abnormality The distal foot is warm with intact sensation and motor function, intact pulses. The knee has mild swelling. The swelling of calf is mild and the calf is very soft with very low suspicion of compartment syndrome No fever. Examination likely from mild injury and not infection. 08/17/18 09:11 The labs were reviewed. Hgb is 8.5 prior on 03/16/18 was 11.6 The CR is 1.8 prior was 2.1 Uric acid is 7.1 CRP is 2.1 08/17/18 10:31 EKG #1: 10:21 Rate: 56 Rhythm: sinus [place]: normal Intervals: normal ST segments: no acute process Prior: 03/21/18 08/17/18 10:41 The XR's were reviewed Hip is negative for acute injury The knee demonstrates and effusion with possible insufficiency fracture CT was recommended by the radiologist. 08/17/18 10:46 Venous doppler negative for DVT. 4cm complex fluid collection in the popliteal area likely cyst. 08/17/18 12:[address] demonstrated no fracture or dislocation. There is an osteal-chondrial defect distal femur. Large joint effusion possible hemarthrosis. 08/17/18 12:17 The patient can not ambulate safely due to age and pain. I recommend admission due to the drop in Hgb to 8.5, pain, and fall risks. Dr King accepts the patient for admission. 08/17/18 12:22 The stool was checked. Normal brown stool but Heme trace positive 08/17/18 12:25 One dose of Xarelto will be held due to the effusion, drop in Hgb from March and trace heme positive stools with serial CBC's in the hospital. Dr King accepts the admission Medical Decision Making - Lab Data Result diagrams: 08/17/18 08:30 08/17/18 08:30 Disposition Disposition: Admit Clinical Impression: Inability to ambulate due to knee, Renal insufficiency, Heme positive stool Strain of knee Qualifiers: Encounter type: initial encounter Laterality: left Qualified Code(s): S86.912A - Strain of unspecified muscle(s) and tendon(s) at lower leg level, left leg, initial encounter Anemia Qualifiers: Anemia type: unspecified type Qualified Code(s): D64.9 - Anemia, unspecified Disposition: Still a Patient at [facility] Decision to Admit: Admit from ER Decision to Admit Date: 08/17/18 Decision to Admit Time: 12:05 Condition: (2) Stable Time of Disposition: 12:05 Quality - Quality Measures Quality Measures: N/A - Blood Pressure Screening Does Patient Have Any of the Following: Active Dx of HTN Blood Pressure Classification: Hypertensive Reading Systolic Measurement: 144 Diastolic Measurement: 79 Screening for High Blood Pressure: Patient Exclusion, Hx of HTN [G9744]
[2018-08-17] MEDS ORDERED: MORPHINE SULFATE 10MG/1ML **1ML VIAL IVP ONE ×2 (08:23→13:26)
[2018-08-17] MEDS ORDERED: ACETAMINOPHEN 500 MG TABLET PO ONE (08:24)
[2018-08-17 08:42] LABS: ABSOLUTE NEUTROPHIL COUNT 6.46; BASO % 0.1 % (0-6); HEMATOCRIT 27.1 % (35.0-47.0); HEMOGLOBIN 8.5 gm/dl (11.6-16.0); LYMPH % 13.2 % (16-45); MEAN CELL VOLUME 96.4 fl (81-97); MEAN CORPUSCULAR HEMOGLOBIN 30.2 pg (27-33); MEAN CORPUSCULAR HGB CONC 31.4 g/dl (32-36); MEAN PLATELET VOLUME 10.9 fl (7.4-10.4); MONO % 14.7 % (0-9); PLATELET COUNT 249 K/uL (130-400); RED BLOOD COUNT 2.81 M/uL (3.80-5.40); RED CELL DISTRIBUTION WIDTH 13.6 % (11.5-14.5); WHITE BLOOD COUNT W/O DIFF 9.1 K/uL (4.2-12.2)
[2018-08-17 08:51] LABS: CREATININE 1.8 mg/dL (0.5-0.9)
[2018-08-17 08:53] LABS: INR 1.2; PARTIAL THROMBOPLASTIN TIME 23.4 SECONDS (24.5-39.1)
[2018-08-17 08:56] LABS: C-REACTIVE PROTEIN 2.11 mg/dL (<0.5)
[2018-08-17] MEDS ORDERED: MORPHINE SULFATE 10MG/1ML **1ML VIAL IVP PRN (17:16)
[2018-08-17] MEDS ORDERED: LEVOTHYROXINE SOD 112 MCG TAB PO SCH (17:16)
[2018-08-17] MEDS: 0.9 % SODIUM CHLORIDE 1000ML 1,000 ML IV PRN (17:26)
[2018-08-17] MEDS: PANTOPRAZOLE SODIUM IV 40 MG VIAL IVP SCH (17:26)
[2018-08-17] MEDS: HYDRALAZINE HCL 25 MG TABLET PO SCH ×2 (17:29→21:19)
[2018-08-17] MEDS: COMBIGAN EYE OPTH SCH ×2 (18:08→21:23)
--- NOTE | 2018-08-17 18:15 | Rehab Evaluation ---
Patient Information - Patient Information Diagnosis: Left knee pain and swelling Ordered Treatment: PT Evaluate and Treat Status: Initial Evaluation Surgery: No Past Medical/Surgical Hx: PAST MEDICAL/SURGICAL HISTORY Past Surgical History bilat foot (toe) sx, left lumpectomy (benign), bilat RCR shoulder, left eye PMH - Respiratory Hx Respiratory Disorders No PMH - Cardiovascular Hx Cardiovascular Disorders Yes Hx Edema Yes Hx Hypertension Yes Hx Irregular Heartbeat Yes: Afib Comment: Pt unaware of when in Afib, "goes in and out without warning" no s/s PMH - Neuro Hx Neurological Disorders No PMH - GI Hx Gastrointestinal Disorders Yes Hx Abdominal Pain Yes Hx Diverticulitis Yes: Mar, 2016 PMH - Hx Genitourinary Disorders No Hx Age of Menopause 44 Hx Kidney Stones Yes: small on right PMH - Endocrine Hx Endocrine Disorders Yes Hx Diabetes No Hx Thyroid Disease Yes: hypo PMH - Musculoskeletal Hx Musculoskeletal Disorders Yes Hx Arthritis Yes Hx Osteoporosis Yes Comment: DDD-neck PMH - Psych Hx Psychiatric Problems No PMH - Hematology/Oncology Hx Hematology/Oncology Yes Disorders Hx Bruising Yes: d/t NSAID & Asa Social History: Detail (Lives with and has neighbor support for things like transport and meals, assist other ways.) Precautions: [place], Fall - Time With Patient Total Time Spent With Patient (Min): 20 Treatment Procedures: Detail (Patient seen bedside to determine if safe to try to ambulate. She says she cannot put any weight on left LE and tends to just rest it on floor and was able to use FWW to transfer to bedside commode but unable to really walk with walker. Max assist of two to transfer to BSC then back to bed, taking one or two steps leaning heavily on walker. Did check ROM of knee and quite tender and swelled at this time.) Subjective Information - Subjective Information Per Patient (As above: lives with who usually helps her with mobility but she has not been able to walk in last two days.) Objective Data - Pain Pain Present: Yes Pain Scale Used: Numeric (1 - 10) (4-5/10) - Mental Status Patient Orientation: Oriented x3 - Visual Perception Deficit (Patient has significant visual impairment and let me know that.) - ROM Not within normal limits (Patient has had rotator cuff surgery on both shoulders and limited ROM by at least 50%. Right LE WFL for ROM but left knee extremely tender and swelled and could not bend greater than 60 degrees.) - Strength/Tone Not within normal limits (Impaired somewhat secondary to other medical limitations and age: 3-/5 shoulders, hips 3+/5.) - Coordination Deficit - Bed Mobility Dependent (Required some assist supine to sit to stand: max assist of two to stand and transfer over to BSC.) - Transfers Dependent - Balance Balance Sitting: Fair Balance Standing: Poor - Sensation Intact - Gait Detail (Leans over significantly when stands even at walker and requires cues to stand up fully and weightbear on UES to take pressure off left LE. Took two to three steps each direction on and off BSC but able to use UES and put very little pressure on left LE.) Therapy Assessment - Therapy Assessment Detail (Patient unable to ambulate safely at this time. Requires max assist of two to transfer even to BSC. Knee is swelled and tender, patella looks like tracking correctly but difficulty with ROM. Strength also decreased left knee in quads. Pain posterior knee with sitting on BSC.) Patient Education - Patient Education Teaching Topic: Equipment Use, Exercise/Activity Response: Return Demonstration, Reinforcement Needed Teaching Method: Demonstration Teaching Recipient: Patient Barriers To Learning: Age Related, Visual Problem List - Problem List Physical Therapy Problem List: Detail (1. Inability of patient to ambulate safely at this time. 2. Decreased function at this time. 3. Pain and swelling knee.) Goals - Goals Physical Therapy Goals: Patient will be able to exhibit safety with ambulation with FWW and safety with transfers with appropriate assistance. Prognosis - Prognosis Moderate (Not sure cause of knee issues so may depend on how much healing occurs and what patient may need for proper mobility at this time.) Plan - Plan Physical Therapy Plan: PT will check on patient Monday and nursing over the weekend with work with patient on mobility and possibly improve gait to more functional level.
[2018-08-17 18:24] LABS: ABO GROUP A; ANTIBODY SCREEN NEGATIVE (NEGATIVE); RH TYPE POSITIVE
[2018-08-17] MEDS: SIMVASTATIN 20 MG TABLET PO SCH (21:19)
[2018-08-17] MEDS: FUROSEMIDE 20 MG TABLET PO SCH (21:19)
[2018-08-18 06:03] LABS: ABSOLUTE NEUTROPHIL COUNT 5.41; BASO % 0.4 % (0-6); EOS % 0.4 % (0-6); GRAN % 59.3 % (47-80); HEMATOCRIT 27.4 % (35.0-47.0); HEMOGLOBIN 8.5 gm/dl (11.6-16.0); MEAN CELL VOLUME 101.1 fl (81-97); MEAN PLATELET VOLUME 11.2 fl (7.4-10.4); MONO % 14.9 % (0-9); PLATELET COUNT 226 K/uL (130-400); RED BLOOD COUNT 2.71 M/uL (3.80-5.40); RED CELL DISTRIBUTION WIDTH 14.4 % (11.5-14.5); WHITE BLOOD COUNT W/O DIFF 9.1 K/uL (4.2-12.2)
[2018-08-18 06:04] LABS: MEAN CORPUSCULAR HEMOGLOBIN 31.3 pg (27-33)
[2018-08-18] MEDS: PANTOPRAZOLE SODIUM IV 40 MG VIAL IVP SCH ×2 (06:04→17:31)
[2018-08-18] MEDS: ACETAMINOPHEN 325 MG TAB PO PRN ×2 (08:19→22:05)
[2018-08-18] MEDS: 0.9 % SODIUM CHLORIDE 1000ML 1,000 ML IV PRN (09:32)
[2018-08-18] MEDS ORDERED: METHYLPREDNISOLONE 80MG/VIAL IM ONE (09:52)
[2018-08-18] MEDS ORDERED: PREDNISOLONE ACETATE 1% OPTH 10ML BOTTLE OPTH SCH (10:00)
[2018-08-18 10:14] LABS: % SATURATION 6 % (20-50)
[2018-08-18] MEDS: COLCHICINE 0.6 MG TABLET PO SCH (10:18)
[2018-08-18] MEDS: AMLODIPINE BESYLATE 5MG TAB PO SCH (10:34)
[2018-08-18] MEDS: HYDRALAZINE HCL 25 MG TABLET PO SCH ×3 (10:34→22:07)
[2018-08-18] MEDS: FUROSEMIDE 20 MG TABLET PO SCH ×2 (10:34→17:30)
[2018-08-18] MEDS: COMBIGAN EYE OPTH SCH ×2 (10:53→22:03)
[2018-08-18] MEDS: FLUTICASONE PROPIONATE 50MCG NASAL 16 GM BTL SCH (10:53)
[2018-08-18] MEDS ORDERED: LEVOTHYROXINE SOD 112 MCG TAB PO SCH (11:43)
[2018-08-18] MEDS ORDERED: COLCHICINE 0.6 MG TABLET PO PRN (12:00)
[2018-08-18] MEDS: ASCORBIC ACID 500 MG TAB PO SCH (13:25)
[2018-08-18] MEDS: FERROUS SULFATE 325 MG TAB PO SCH (13:25)
[2018-08-18] MEDS ORDERED: RIVAROXABAN 15 MG TABLET PO SCH (17:30)
[2018-08-18 20:44] LABS: CRYSTALLOID MATERIAL Not Present
[2018-08-18] MEDS: SIMVASTATIN 20 MG TABLET PO SCH (22:05)
[2018-08-19] MEDS: PANTOPRAZOLE SODIUM IV 40 MG VIAL IVP SCH (05:15)
[2018-08-19] MEDS: ACETAMINOPHEN 325 MG TAB PO PRN (06:44)
[2018-08-19] MEDS: PANTOPRAZOLE SODIUM 40 MG TABLET PO SCH (06:45)
[2018-08-19] MEDS: LEVOTHYROXINE SOD 112 MCG TAB PO SCH (06:45)
[2018-08-19 06:48] LABS: ABSOLUTE NEUTROPHIL COUNT 3.41; BASO % 0.2 % (0-6); EOS % 2.3 % (0-6); GRAN % 55.7 % (47-80); HEMATOCRIT 22.9 % (35.0-47.0); HEMOGLOBIN 7.1 gm/dl (11.6-16.0); LYMPH % 27.6 % (16-45); MEAN PLATELET VOLUME 10.1 fl (7.4-10.4); MONO % 14.2 % (0-9); PLATELET COUNT 191 K/uL (130-400); RED BLOOD COUNT 2.36 M/uL (3.80-5.40); RED CELL DISTRIBUTION WIDTH 13.8 % (11.5-14.5); WHITE BLOOD COUNT W/O DIFF 6.1 K/uL (4.2-12.2)
[2018-08-19] MEDS: ASCORBIC ACID 500 MG TAB PO SCH (09:36)
[2018-08-19] MEDS: HYDRALAZINE HCL 25 MG TABLET PO SCH ×3 (09:36→21:09)
[2018-08-19] MEDS: COLCHICINE 0.6 MG TABLET PO SCH (09:37)
[2018-08-19] MEDS: AMLODIPINE BESYLATE 5MG TAB PO SCH (09:37)
[2018-08-19] MEDS: FUROSEMIDE 20 MG TABLET PO SCH ×2 (09:37→18:10)
[2018-08-19] MEDS: FERROUS SULFATE 325 MG TAB PO SCH (09:37)
[2018-08-19] MEDS: FLUTICASONE PROPIONATE 50MCG NASAL 16 GM BTL SCH (10:00)
[2018-08-19 14:53] LABS: ABO GROUP A; ANTIBODY SCREEN NEGATIVE (NEGATIVE); RH TYPE POSITIVE
[2018-08-19 14:54] LABS: IMMED. SPIN CROSSMATCH COMPATIBLE
[2018-08-19] MEDS: SIMVASTATIN 20 MG TABLET PO SCH (21:09)
[2018-08-20] MEDS: ACETAMINOPHEN 325 MG TAB PO PRN (05:15)
[2018-08-20] MEDS: LEVOTHYROXINE SOD 112 MCG TAB PO SCH (05:16)
[2018-08-20] MEDS: PANTOPRAZOLE SODIUM 40 MG TABLET PO SCH (06:22)
[2018-08-20] MEDS: COMBIGAN OPTH OPTH SCH ×2 (06:58→13:48)
--- NOTE | 2018-08-20 07:43 | US VENOUS DOPPLER REPORT ---
EXAM: LEFT LOWER EXTREMITY VENOUS DOPPLER ULTRASOUND HISTORY: FELT PULLING IN POSTERIOR LEFT KNEE. NOW WITH PAIN AND SWELLING. TECHNIQUE: Posadas scale, color Doppler, and Duplex Doppler evaluation of the deep venous structures of the left lower extremity were performed from the level of the external iliac vein through the calf veins. Imaging of the right external iliac, common femoral, and greater saphenous veins also performed. Comparison: None. FINDINGS: Evaluation of the left lower extremity is mildly limited by patient sensitivity to movement and pain. On the left, the external iliac vein, common femoral vein, deep femoral vein, superficial femoral vein, greater saphenous vein and popliteal vein are anechoic and completely compressible. Normal Duplex venous waveforms are present. These waveforms are augmentable. There is a complex cystic structure suggested in the posteromedial aspect of the left knee measuring 4.5 x 1.7 cm. The etiology of this is uncertain. A complex popliteal cyst is, however, the most likely etiology. No evidence of DVT within the right external iliac, common femoral nor greater saphenous veins. IMPRESSION: NO EVIDENCE OF VENOUS THROMBOSIS. COMPLEX CYSTIC STRUCTURE POSTERIOR MEDIAL ASPECT OF LEFT KNEE, MOST LIKELY A COMPLEX POPLITEAL CYST. JOB NUMBER: [id number] [facility]
[2018-08-20 07:44] LABS: HEMATOCRIT 25.9 % (35.0-47.0); HEMOGLOBIN 8.3 gm/dl (11.6-16.0)
--- NOTE | 2018-08-20 07:53 | CT SCAN REPORT ---
EXAM: CT OF THE LEFT KNEE WITHOUT CONTRAST HISTORY: KNEE/LEG PAIN WITH SWELLING. POSSIBLE INSUFFICIENCY FRACTURES ON RECENT RADIOGRAPHIC EXAMINATION. TECHNIQUE: Thin collimation helical CT examination of the left knee was performed in the axial plane without intravenous contrast. Coronal and sagittal reformatted images are generated as well as 3D volume rendered images and reviewed. Comparison: Same day two view radiographic examination of the left knee. Encounter: Initial. FINDINGS: Diffuse osteopenia limits evaluation. No definite acute fracture nor dislocation. There are moderate osteoarthritic changes of the medial and lateral compartments and mild osteoarthritic changes of the patellofemoral compartment. Chronic appearing osteochondral defect is noted to involve the anterior aspect of the lateral femoral condyle. This measures 5 x 7 mm. Additional tiny chronic appearing osteochondral defects are noted more posteriorly in the lateral femoral condyle. There is small focal deformity involving the anterior aspect of the medial femoral condyle. This is likely chronic with acute subchondral end plate fracture less likely. Small loose bodies are scattered in the medial and lateral joint spaces. Chondrocalcinosis of the menisci. There is a large joint effusion. Mild diffuse subcutaneous edema. IMPRESSION: 1. DIFFUSE OSTEOPENIA LIMITS EVALUATION. 2. NO DEFINITE ACUTE FRACTURE. CHRONIC APPEARING OSTEOCHONDRAL DEFECTS WITHIN THE LATERAL FEMORAL CONDYLE. 3. SMALL OSTEOCHONDRAL DEFORMITY OF THE ANTERIOR ASPECT OF THE MEDIAL FEMORAL CONDYLE, LIKELY CHRONIC THOUGH ACUTE FRACTURE OF THE SUBCHONDRAL END PLATE WOULD BE DIFFICULT TO EXCLUDE. 4. TRICOMPARTMENTAL OSTEOARTHROSIS WITH SMALL LOOSE BODIES PRESENT. 5. LARGE JOINT EFFUSION SOMEWHAT WHICH APPEARS HETEROGENEOUS SUPERIORLY RAISING THE POSSIBILITY OF HEMARTHROSIS. JOB NUMBER: [id number] [facility]
--- NOTE | 2018-08-20 09:00 | History and Physical Report ---
DATE OF ADMISSION: 08/17/2018 CHIEF COMPLAINT/HISTORY OF CHIEF COMPLAINT: Left knee pain, effusion of the left knee, unable to ambulate, severe pain and weakness. She stated the pain started yesterday getting out of bed, actually, the day before admission on 08/16/2018, left hip and left knee pain. She was getting out of bed, twisted her knee to get out of bed because the blankets. She did not feel a pop, and then she noticed swelling in her knee. No history of fever. No left-sided knee surgery. She normally walks with a walker. She is unable to bear weight. Primary physician is Dr. Benson. Wash House Supervisor is Dr. Perez. Her orthopedic doctor is Dr. Gibson. She has a history of AFib, hypertension, chronic renal disease, chronic back pain, colitis. She is on Xarelto. Xarelto was stopped because she had hemoccult-positive stools, and her hemoglobin was 8.5 in the emergency department. She was admitted to the hospital because she could not ambulate without 2 people assisting her. Her is not able to take care of her at home at this point. She is admitted for rehab and further evaluation of her knee. X-rays done in the emergency department: hip x-ray negative, knee x-ray negative. Possibly some subtle changes, so a CT of the knee was performed of the extremity, which did not show any fractures; however, degenerative changes were present. Venous Doppler was negative for DVT. MEDICAL HISTORY: Atrial fib, on Xarelto; hypertension, chronic kidney disease, chronic back pain, colitis. SURGICAL HISTORY: Bilateral foot surgery, left lumpectomy, benign breast disease, bilateral right rotator cuff surgery on her shoulder, left eye surgery. Patient is visually impaired at this time. CURRENT MEDICATIONS: 1. Tylenol No. 3 p.r.n. every 6 hours. 2. Simvastatin 40 mg daily. 3. Xarelto 15 mg every night. 4. Eye drops, prednisolone 1 drop topically daily. 5. Potassium chloride 10 mEq daily. 6. Multivitamin 1 a day. 7. Levothyroxine 112 mcg per day. 8. Hydralazine 100 mg t.i.d. 9. Lasix 20 mg b.i.d. 10. Flonase 2 sprays daily to nostrils. 11. Timolol 1 drop in each eye b.i.d. 12. Amlodipine 5 mg daily. ALLERGIES: No known drug allergies. SOCIAL HISTORY: Never smoked. No alcohol use or drug use. FAMILY HISTORY: Mother had heart disease. Son had heart disease. SYSTEMS REVIEW: HEENT: No upper respiratory infection symptoms, cough, cold, or congestion. Cardiovascular: No chest pain, palpitations, or arrhythmias. Respiratory: No cough, cold, or congestion. No smoking history. Gastrointestinal: No nausea, vomiting, diarrhea, black stools, or bloody stools. Genitourinary: No dysuria, hematuria, frequency, or burning on urination. Musculoskeletal: She has left knee pain. Neurologic: No CVA paralysis or paresthesias. Gynecological: She had a lump removed on her breast, and it was benign for cancer. No vaginal bleeding or abnormal lumps in her breasts. Endocrine: No diabetes or thyroid disease. Integument: No rash, ulcers, changes in moles, or yellow skin. PHYSICAL EXAMINATION: VITAL SIGNS: Height 5 feet 6 inches. Weight 152 pounds with a bed scale. Temperature 98.8. Pulse 66. Blood pressure 153/72. Respiratory rate 17. Pulse oximetry 97% on room air. No temperature throughout the last 24 hours. HEENT: Pupils equal, round, and reactive to light and accommodation. Extraocular muscles intact. Throat is clear. Nose is clear. Tympanic membranes are clear. NECK: Supple. No jugular venous distention. No hepatojugular reflux. No carotid bruits. Thyroid is smooth. CARDIOVASCULAR: Regular rate and rhythm without murmurs, clicks, rubs, or gallops. RESPIRATORY: Clear to auscultation and percussion. ABDOMEN: Soft, nontender. No hepatosplenomegaly. No masses. No tenderness. Bowel sounds were active. No bruits. EXTREMITIES: The left knee is swollen with a 3+ to 4+ effusion. Pain with motion. BREASTS, GYNECOLOGICAL, RECTAL: Deferred. NEUROLOGIC: Cranial nerves II through XII intact. No gross deficits. Sensation normal. Strength normal. Deep tendon reflexes equal bilaterally. Babinski is negative. MENTAL STATUS: Alert and oriented x3. IMPRESSION: 1. Left knee effusion. 2. Left knee pain. 3. Increased uric acid. 4. Anemia. Hemoglobin is 8.5. 5. Unable to ambulate. PLAN: Physical Therapy to work with her on ambulation and using a walker. We will start colchicine 0.6 mg 2-3 times a day and then back off to once a day and see how she is doing. Planning to do arthrocentesis to check her fluid to see if she has crystals and gout or infection. Possible injection with Depo-Medrol and lidocaine. MTDD
--- NOTE | 2018-08-20 10:07 | Physical Therapy Tx Note ---
Physical Therapy Tx Note - Treatment Note Tolerated: Good Total Time Spent With Patient: 25 Physical Therapy Tx Note: Detail (The patient was in bed when PT arrived with family present. The patient reported her L knee pain was a level 4 using 0-10 pain scale. The patient required minimal PA for upper body with supine to sit and was independent with LE's. The patient was independent with sit to and from stand transfer from bed. The patient ambulated a total of 67 feet x 1 with supervision for safety only with front wheeled walker. The patient required supervision for safety with toilet transfer. The patient was independent with bathroom hygenie and pulling briefs up and down. The patient had brief LOB when washing her hands at the sink but was able to right herself without assistance of PT. The patient returned to bed and required minimal PA to lift LE's with sit to supine and was independent with upper body. Patient's family stated she requires minimal assistance with bed mobility at home. According to the family the patient ambulated the distance she requires to home to go to the bathroom. When PT asked family is patient is near previous functional level the patient's family stated "she is getting there." L LE edema is still present. L LE is less painful then initially. PT will continue to see patient while she is an inpatient at [facility]. Patient may possibly benefit from short term home PT to return to previous functional level.) Physical Therapy Problem List: Detail (1. Inability of patient to ambulate safely at this time. 2. Decreased function at this time. 3. Pain and swelling knee.) Physical Therapy Goals: Patient will be able to exhibit safety with ambulation with FWW and safety with transfers with appropriate assistance. Physical Therapy Plan: PT one time a day M-F for gait training, transfer training until patient is discharged from [facility]/
--- NOTE | 2018-08-20 13:23 | RADIOLOGY REPORT ---
STUDY: Left knee 2 views. CLINICAL HISTORY: Leg pain for 1 day. Unable to bend knee. TECHNIQUE: AP and cross-table lateral views of the left knee. COMPARISON: None. ENCOUNTER: Initial. FINDINGS: Severe osteopenia limits evaluation. As seen on the lateral view, there is irregularity of subchondral endplate of one or less likely both femoral condyles. This is difficult to lateralize on the AP view. There is possible subchondral endplate deformity of the anterior tibia on the lateral view as well without gross bony abnormality on the frontal view though this may localize laterally. [id number] tricompartmental osteoarthritis. There is a large joint effusion. Diffuse arterial calcification. IMPRESSION: 1. Diffuse osteopenia limits evaluation. 2. Apparent irregularity/disruption of the subchondral bone plate of one or less likely both femoral condyles as seen on the lateral view anteriorly. Collapsed insufficiency fracture cannot be excluded. 3. There is also possible mild deformity of the subchondral bone. Insufficiency fracture cannot be excluded. MTDD
--- NOTE | 2018-08-20 13:23 | RADIOLOGY REPORT ---
STUDY: Unilateral left hip. CLINICAL HISTORY: Left leg pain for 1 day. No specific trauma. TECHNIQUE: Two AP views of the pelvis are obtained as well as a frog leg lateral view of the left hip. COMPARISON: Unilateral left hip dated 01/10/2018. ENCOUNTER: None. FINDINGS: Diffuse osteopenia limits evaluation. No convincing acute fracture, dislocation, or destructive bone lesion is seen. There are mild degenerative changes of each hip and each sacroiliac joint. Advanced degenerative disc changes are suspected at the L4-L5 level. Vascular calcifications are scattered within the pelvis. IMPRESSION: 1. Diffuse osteopenia limits evaluation. 2. No acute fracture nor dislocation. 3. Mild degenerative changes of each hip. MTDD
[2018-08-20] MEDS: AMLODIPINE BESYLATE 5MG TAB PO SCH (13:47)
[2018-08-20] MEDS: FUROSEMIDE 20 MG TABLET PO SCH (13:47)
[2018-08-20] MEDS: FERROUS SULFATE 325 MG TAB PO SCH (13:47)
[2018-08-20] MEDS: HYDRALAZINE HCL 25 MG TABLET PO SCH (13:47)
[2018-08-20] MEDS: FLUTICASONE PROPIONATE 50MCG NASAL 16 GM BTL SCH (13:48)
[2018-08-20] MEDS: ASCORBIC ACID 500 MG TAB PO SCH (13:48)
--- NOTE | 2018-08-20 14:42 | Discharge Note ---
VTE H&P Assessment - Risk for VTE Risk for VTE: Yes Risk Level: Moderate Risk Assessment Date: 08/17/18 Risk Assessment Time: 18:00 VTE Orders Placed or Will Be Placed: No VTE Reason for No Prophylaxis: Contraindicated (GI Bleed) Discharge Medications - Discharge Medications Prescriptions: Ferrous Sulfate [Iron] 325 mg PO BID #60 tablet Omeprazole 20 mg PO DAILY #30 cap Ascorbic Acid [Vitamin C] 1,000 mg PO BID #60 tab Home Medications: Ambulatory Orders Multivitamin [Multi-Vitamin Daily] 1 each PO DAILY tab 07/12/17 [Last Taken 1 Day Ago ~08/16/18] Prednisolone Acetate 1 drop TOP DAILY 03/08/18 [Last Taken 1 Day Ago ~08/16/18] Brimonidine Tartrate/Timolol [Combigan 0.2%-0.5% Eye Drops] 1 drop EACH EYE BID 05/02/18 [Last Taken 1 Day Ago ~08/16/18] Acetaminop W/ Codeine 300/30Mg [Tylenol with Codeine #3] 1 tab PO Q6H PRN 08/17/18 [Last Taken 08/17/18 07:00] Acetaminophen [Tylenol 325Mg] 650 mg PO Q6H PRN tablet 08/20/18 [Last Taken Unknown] Ascorbic Acid [Vitamin C] 1,000 mg PO BID #60 tab 08/20/18 [Last Taken Unknown] Ferrous Sulfate [Iron] 325 mg PO BID #60 tablet 08/20/18 [Last Taken Unknown] Omeprazole 20 mg PO DAILY #30 08/20/18 [Last Taken Unknown] Discharge Note - Date Date of Discharge Note: 08/20/18 Disposition: Home, Self-Care Condition: (2) Stable Additional Instructions: follow up with Dr. Benson as scheduled tomorrow patient will need outpatient serial hemoglobins and will be set up Dr. Benson start omeprazole 20 mg daily increase iron to twice a day vit C twice a day tylenol for left knee pain /strain /Hemarthrosis if severe she says she has some tylenol #3 at home and she can use that if pain severe. stay off xarelto one week because of GI Bleed and than the decision will have to made when she goes back on the xarelto. She had brown stool hemoccult positive Forms: Patient Portal Access Activity at Discharge: Increase Activity as Tolerated
[2018-08-20] MEDS ORDERED: PROPOFOL 10 MG/ML VIAL IV ONE (15:13)
[2018-08-20] MEDS ORDERED: LIDOCAINE 2% MDV (20MG/ML) 20ML VIAL IV ONE (15:13)
--- NOTE | 2018-08-20 17:30 | Medical Records Consult ---
REASON FOR CONSULTATION: Possible endoscopy. HISTORY: The patient is a very pleasant 88-year-old female seen in consultation at the request of Dr. King for possible upper endoscopy. She actually presented to the hospital on 08/17/2018 with complaints of left knee pain and swelling. She had hemarthrosis with drainage procedure completed by Dr. King. GI was consulted for low hemoglobin to 7.1 g and stool which was positive for occult blood. The patient did have a colonoscopy on 07/01/2016 for evaluation of previous diverticulitis. Procedure was actually for screening at that time. Findings included severe left-sided colonic diverticulosis with mild terminal ileitis; however, biopsies from the ileum proved to be normal and at that time she had grade 3 internal hemorrhoids noted as well. From a GI standpoint, she denies any pyrosis. She denies any recurrent vomiting. She has occasional nausea when she overeats. There is no history of peptic ulcer disease. PAST MEDICAL HISTORY: Additional medical problems including the arthritis noted above, history of hypothyroidism, and atrial fibrillation. She has been on Xarelto for atrial fibrillation. She also suffers with hypertension, chronic kidney disease, and chronic back pain. HOME MEDICATIONS: Acetaminophen in addition to those listed on the medical record. She denies any usage of anti-inflammatory drugs over the past year. She does take Tylenol on occasion for pain. REVIEW OF SYSTEMS: Arthritis noted above and the arrhythmia but was otherwise fairly unremarkable. PHYSICAL EXAMINATION: HEAD: Normocephalic. NECK: Supple. LUNGS: Clear bilaterally. HEART: Fairly regular. EXTREMITIES: Demonstrated swelling of the left knee more so than the right. LABORATORY DATA: As mentioned included hemoglobin 7.1, hematocrit 22.9, platelet count 191. BUN and creatinine were abnormal at 51 and 1.8, respectively. GFR was 28, glucose 126. C-reactive protein was elevated at 2.1. Basic metabolic panel was otherwise unremarkable. EKG revealed sinus bradycardia. IMPRESSION AND PLAN: The patient did receive a unit of blood and hemoglobin is now 8.3. In light of her Hemoccult-positive stool and anemia, I do agree that upper endoscopy may prove beneficial to rule out acid peptic disease or active bleeding site. She had a colonoscopy completed 1 year ago and I do not believe this needs to be repeated at this time. The patient agrees to proceed with upper endoscopy. Further recommendations will be forthcoming. Thank you for allowing me to participate in her care. GULSHAN
--- NOTE | 2018-08-22 13:40 | Operative Note ---
OPERATION: ESOPHAGOGASTRODUODENOSCOPY. INDICATION: Anemia with Hemoccult-positive stool. The source of the anemia is unclear. The patient had a colonoscopy 1 year ago. She is scheduled today for upper endoscopy to evaluate her potential bleeding source. She denies upper GI tract symptoms other than early satiety. ANESTHESIA: Intravenous sedation was administered by the department of anesthesiology and included Diprivan titrated to effect. PROCEDURE: Following informed consent from this alert individual, including a discussion of the risks and benefits of the procedure and an opportunity for the patient to ask questions, the patient was in the left lateral decubitus position. The Olympus [id number] video endoscope was inserted into the esophagus without resistance. The proximal esophagus had a normal appearance with normal folds and distensibility. The mid and distal esophagus likewise was free from changes. The squamocolumnar junction was well defined. There was a moderate sized hiatal hernia noted which did have some mild erythema noted in the proximal portion of the stomach. No ulcerations or erosions were seen. The subdiaphragmatic stomach was endoscopically unremarkable. The pylorus was patent. The duodenal bulb, sweep, and descending duodenum were examined in a serial fashion and found to be normal. The endoscope was then drawn back into the body of the stomach where retroflexion accomplished following air insufflation failed to demonstrate any additional changes. Again hiatal hernia was noted. The instrument was then withdrawn back through a normal esophagus and removed from the patient. She tolerated the procedure well and was returned to the recovery area in stable condition. IMPRESSION: 1. [id number] sized hiatal hernia noted. 2. Mild proximal gastritis without ulcerations, erosions, or bleeding. RECOMMENDATION: The patient will be following with primary care team. As always, thank you for allowing me to participate in the care of your patient. GULSHAN
--- NOTE | 2018-08-22 13:40 | Discharge Summary ---
DATE: 08/20/2018 DISCHARGE DIAGNOSES: 1. Anemia. EGD done with diagnosis of gastritis. 2. Gastritis as diagnosed on EGD. 3. Hemoccult-positive stool, brown stool. 4. Hemarthrosis of the left knee. 5. Left knee strain with the hemarthrosis. 6. Increased uric acid but at this point no crystals in the synovial fluid of the left knee, just blood. ATTENDING PHYSICIAN: Elia King DO REASON FOR HOSPITALIZATION: The patient was getting out of bed and twisted her left knee. Swollen and painful, unable to ambulate. Came to the emergency department. Anemia was found at 8.5. She had a rectal exam done who showed brown stool Hemoccult positive. She had serial hemoglobin done. It dropped down to 7.1. She was given 1 unit of blood and she had an EGD done by Dr. Andino on the day of discharge showing gastritis. She had a left knee arthrocentesis done which showed bloody fluid, 50 mL of fluid removed from the knee. She felt much better. Also, a steroid injection was placed in the knee at the same time, Depo- Medrol 80 mg and lidocaine 2 mL of 1% lidocaine. The patient gradually improved with her ambulation, was walking in the hallway with a walker on the day of discharge. SIGNIFICANT FINDINGS: EGD showing gastritis. Knee x-ray. Initially the knee x- ray shows a possible fracture of the knee but a CT scan showed degenerative joint disease only. Venous Doppler of the leg was done, negative for DVT. CT scan showing diffuse osteopenia limits evaluation, no definitive acute fracture, chronic-appearing osteochondral defects within the lateral femoral condyle, small osteochondral deformity of the anterior aspect of the medial femoral condyle likely chronic though acute fracture of subchondral endplate would be difficult to exclude, tricompartment osteoarthritis with small loose bodies present, large joint effusion somewhat which appears heterogeneous appearing raising the possibility of hemarthrosis. A Gram stain of the synovial fluid left knee negative. Culture was set up, pending at this point. Clinically she is getting better. Initially her hemoglobin was 8.5. In the ER it dropped to 7.1. After 1 unit of blood transfusion it was 8.3. WBC 9100 in the ER, 6100 when she was discharged. Her creatinine is 1.8, BUN 51, iron low at 15, total iron binding capacity 230, normal, percent saturation 6%. C-reactive protein elevated at 2.11. Hemoccult stool was positive in the ER by Dr. Lerma. There is no CSF fluid done but I could not get the order in without putting body fluid as synovial fluid, so they only had body fluid and spinal fluid and that is what I ordered. THERAPY PROVIDED: The patient was given cautious hydration initially, 1 unit of blood when her hemoglobin dropped to 7. EGD was done by Dr. Andino showing gastritis. No acute ulcers. She had a colonoscopy about a year ago according to the patient. Constipation with Dr. Andino. HOSPITAL COURSE: Improving. Walking with a walker into the hallway. She is stable with a hemoglobin of 8.3 on discharge. CONDITION ON DISCHARGE: Much improved. DISCHARGE INSTRUCTIONS: Follow up with Dr. Benson tomorrow as scheduled. She will need outpatient serial hemoglobins to make sure that she remains improving. Also started omeprazole 20 mg daily. Stopped the Xarelto for 1 week and then decision will have to be made when to restart it. Iron 325 b.i.d. Vitamin C 1000 b.i.d. She was on once a day and her iron was low at once a day. Tylenol for pain in her knee 325 two q.4 h. p.r.n. and if she gets severe pain, she can use some of her Tylenol 3 which she already has at home. Home medications continued. Vitamins once a day, drops for glaucoma as prescribed. MTDD
== END 2018-08-20 15:14 | disposition home or self-care (01) | DRG 563 ==
LOC: ER 08:06 → MEDSURG 13:55
PROVIDERS: ADMIT Emergency Medicine; ATTEND Emergency Medicine
PROC: 0S9D30Z Drainage of Left Knee Joint with Drainage Device, Percutaneous Approach (ICD-10-PCS; principal; 2018-08-17)
DX: S86.912A Strain of unspecified muscle(s) and tendon(s) at lower leg level, left leg, initial encounter (principal); M25.062 Hemarthrosis, left knee; D64.9 Anemia, unspecified; N28.9 Disorder of kidney and ureter, unspecified; I10 Essential (primary) hypertension; I48.91 Unspecified atrial fibrillation; Z79.01 Long term (current) use of anticoagulants; E03.9 Hypothyroidism, unspecified; R60.1 Generalized edema; M19.90 Unspecified osteoarthritis, unspecified site; Z87.442 Personal history of urinary calculi
CPT/HCPCS: 36430; 80048; 83550; 84550; 85014; 85018; 85025; 85610; 85730; 86140; 86850; 86900; 86901; 87205; 89060; 93005; 93010; 96374; 96376; 99223; 99239; 99285; C9113; J1040; J2270

== ENCOUNTER 2018-10-11 05:15 | Inpatient (IN) | payer MEDICARE, BC ==
[2018-10-11] MEDS ORDERED: MORPHINE SULFATE 5 MG/ML VIAL IVP ONE ×2 (05:37→06:18)
[2018-10-11 05:47] LABS: ABSOLUTE NEUTROPHIL COUNT 3.48; BASO % 0.3 % (0-6); EOS % 6.3 % (0-6); HEMATOCRIT 27.9 % (35.0-47.0); HEMOGLOBIN 8.6 gm/dl (11.6-16.0); LYMPH % 26.1 % (16-45); MEAN CELL VOLUME 96.2 fl (81-97); MEAN CORPUSCULAR HGB CONC 30.8 g/dl (32-36); MEAN PLATELET VOLUME 10.2 fl (7.4-10.4); MONO % 11.3 % (0-9); PLATELET COUNT 273 K/uL (130-400); RED CELL DISTRIBUTION WIDTH 14.4 % (11.5-14.5); WHITE BLOOD COUNT W/O DIFF 6.2 K/uL (4.2-12.2)
[2018-10-11 05:48] LABS: MEAN CORPUSCULAR HEMOGLOBIN 29.6 pg (27-33)
[2018-10-11 05:58] LABS: CREATININE 1.7 mg/dL (0.5-0.9); PROTHROMBIN TIME (PATIENT) 49.1 SECONDS (9.5-12.1)
[2018-10-11 05:59] LABS: INR 5.2
--- NOTE | 2018-10-11 06:14 | Emergency Department Record ---
History of Present Illness - General Chief complaint: Lower Extremity Pain Stated complaint: LT KNEE PAIN Time Seen by Provider: 10/11/18 05:17 Source: Patient, EMS Mode of Arrival: EMS Limitations: No limitations - History of Present Illness Initial comments: pt woke w a sudden onset of l leg pain and l knee pain. she has had something similar in the past. she denies any injury. she fears a dvt. she is on coumadin for afib but has not taken it for 2 days. she has swelling in the leg MD Complaint: Extremity pain, Extremity swelling Onset/Timin -: Hour(s) Location: Left, Lower Leg Improves with: Elevation Worsens with: Exertion, Walking, Weight bearing Associated Symptoms: Denies other symptoms - Related Data Home Medications Medication Instructions Recorded Confirmed Last Taken Fexofenadine HCl [Melinda Allergy] 180 mg PO DAILY 10/11/18 10/11/18 10/10/18 Previous Rx's Medication Instructions Recorded Ascorbic Acid [Vitamin C] 1,000 mg PO BID #60 tab 08/20/18 Allergies Allergy/AdvReac Type Severity Reaction Status Date / Time No Known Drug Allergies Allergy Verified 10/11/18 05:31 Travel Screening - Travel/Exposure Within Last 30 Days Have you traveled within the last 30 days?: No - Travel/Exposure Within Last Year Have you traveled outside the [place] in the last year?: No - Additonal Travel Details Have you been exposed to anyone with a communicable illness?: No - Travel Symptoms Symptom Screening: None Review of Systems Reviewed: No additional complaints except as noted below Constitutional: Reports: As per HPI. Denies: Chills, Fever, Malaise, Night sweats, Weakness, Weight change Eyes: Reports: As per HPI. Denies: Eye discharge, Eye pain, Photophobia, Vision change ENT: Reports: As per HPI. Denies: Congestion, Dental pain, Ear pain, Epistaxis, Hearing loss, Throat pain Respiratory: Reports: As per HPI. Denies: Cough, Dyspnea, Hemoptysis, Stridor, Wheezes Cardiovascular: Reports: As per HPI, Arrhythmia. Denies: Chest pain, Dyspnea on exertion, Edema, Murmurs, Orthopnea, Palpitations, Paroxysmal nocturnal dyspnea, Rheumatic Fever, Syncope Endocrine: Reports: As per HPI. Denies: Fatigue, Heat or cold intolerance, Polydipsia, Polyuria Gastrointestinal: Reports: As per HPI. Denies: Abdominal pain, Constipation, Diarrhea, Hematemesis, Hematochezia, Melena, Nausea, Vomiting Genitourinary: Reports: As per HPI. Denies: Abnormal menses, Discharge, Dyspareunia, Dysuria, Frequency, Hematuria, Incontinence, Retention, Urgency Musculoskeletal: Reports: As per HPI, Joint swelling. Denies: Arthralgia, Back pain, Gout, Myalgia, Neck pain Skin: Reports: As per HPI. Denies: Bruising, Change in color, Change in hair/nails, Lesions, Pruritus, Rash Neurological: Reports: As per HPI. Denies: Abnormal gait, Confusion, Headache, Numbness, Paresthesias, Seizure, Tingling, Tremors, Vertigo, Weakness Psychiatric: Reports: As per HPI. Denies: Anxiety, Auditory hallucinations, Depression, Homicidal thoughts, Suicidal thoughts, Visual hallucinations Hematological/Lymphatic: Reports: As per HPI. Denies: Anemia, Blood Clots, Easy bleeding, Easy bruising, Swollen glands Past Medical History - SOCIAL HISTORY Smoking Status: Never smoker Alcohol Use: None Drug Use: None - RESPIRATORY Hx Respiratory Disorders: No - CARDIOVASCULAR Hx Cardio Disorders: Yes Hx Edema: Yes Hx Hypertension: Yes Hx Irregular Heartbeat: Yes (Afib) Comment:: Pt unaware of when in Afib, "goes in and out without warning" no s/s - NEURO Hx Neuro Disorders: No - GI Hx GI Disorders: Yes Hx Abdominal Pain: Yes Hx Diverticulitis: Yes (Mar, 2016) Hx of Polyps: Yes - Hx Genitourinary Disorders: No Hx Kidney Stones: Yes (small on right) - ENDOCRINE Hx Endocrine Disorders: Yes Hx Diabetes: No Hx Thyroid Disease: Yes (hypo) - MUSCULOSKELETAL Hx Musculoskeletal Disorders: Yes Hx Arthritis: Yes Hx Osteoporosis: Yes Comment:: DDD-neck - PSYCH Hx Psych Problems: No - HEMATOLOGY/ONCOLOGY Hx Hematology/Oncology Disorders: Yes Hx Bruising: Yes (d/t NSAID & Asa) Family Medical History Any Significant Family History?: No Hx Cancer: Brother/Sister Hx Depression: Brother/Sister Hx Heart Disease: Mother, Brother/Sister *Heart Comment: Son Physical Exam - General General Appearance: Alert, Oriented x3, Cooperative, Mild distress - Head Head exam: Normal inspection - Eye Eye exam: Normal appearance, PERRL, EOMI Pupils: Normal accommodation - ENT ENT exam: Normal exam, Mucous membranes moist, Normal external ear exam, Normal orophraynx Ear exam: Normal external inspection. negative: External canal tenderness Nasal Exam: Normal inspection. negative: Discharge, Sinus tenderness Mouth exam: Normal external inspection, Tongue normal Teeth exam: Normal inspection. negative: Dental caries Throat exam: Normal inspection. negative: Tonsillar erythema, Tonsillar exudate - Neck Neck exam: Normal inspection, Full ROM. negative: Tenderness - Respiratory Respiratory exam: Normal lung sounds bilaterally. negative: Respiratory distress - Cardiovascular Cardiovascular Exam: Normal rhythm, Normal heart sounds, Irregular rhythm - GI/Abdominal GI/Abdominal exam: Soft, Normal bowel sounds. negative: Tenderness - Rectal Rectal exam: Deferred - exam: Deferred - Extremities Extremities exam: Calf tenderness, Normal capillary refill, Tenderness, Other (exquisite tenderness and swelling of knee and calf L) - Back Back exam: Reports: Normal inspection, Full ROM. Denies: Muscle spasm, Rash noted, Tenderness - Neurological Neurological exam: Alert, Normal gait, Oriented X3, Reflexes normal - Psychiatric Psychiatric exam: Normal affect, Normal mood - Skin Skin exam: Dry, Intact, Normal color, Warm Course Vital Signs 10/11/18 10/11/18 05:18 06:03 Temperature 98.3 F Pulse Rate 65 Pulse Rate [ 59 L Pulse Ox Probe] Respiratory 18 18 Rate Blood Pressure 179/98 Blood Pressure 174/74 [Right Arm] Pulse Ox 99 98 - Reevaluation(s) Reevaluation #1: 10/11/18 06:31 pt still in severe pain Reevaluation #2: 10/11/18 06:53 d/w dr mejias Medical Decision Making - Lab Data Result diagrams: 10/11/18 05:30 10/11/18 05:30 Lab Results 10/11/18 10/11/18 10/11/18 Range/Units 05:30 05:30 05:30 WBC 6.2 (4.2-12.2) K/uL RBC 2.90 L (3.80-5.40) M/uL Hgb 8.6 L (11.6-16.0) gm/dl Hct 27.9 L (35.0-47.0) % MCV 96.2 (81-97) fl MCH 29.6 (27-33) pg MCHC 30.8 L (32-36) g/dl RDW 14.4 (11.5-14.5) % Plt Count 273 (130-400) K/uL MPV 10.2 (7.4-10.4) fl Gran % 56.0 (47-80) % Lymphocytes % 26.1 (16-45) % Monocytes % 11.3 H (0-9) % Eosinophils % 6.3 H (0-6) % Basophils % 0.3 (0-6) % Absolute Neutrophils 3.48 PT 49.1 H* (9.5-12.1) SECONDS INR 5.2 H* Sodium 141 (136-145) mmol/L Potassium 4.1 (3.4-4.5) mmol/L Chloride 101 (98-107) mmol/L Carbon Dioxide 25.0 (22-29) mmol/L Anion Gap 15.0 (7-16) BUN 36 H (8-23) mg/dL Creatinine 1.7 H (0.5-0.9) mg/dL Estimated GFR 30 mL/min Random Glucose 103 (74-109) mg/dL Calcium 10.6 H (8.8-10.2) mg/dL Disposition Disposition: Admit Clinical Impression: Unable to walk, Renal insufficiency Anticoagulant adverse reaction Qualifiers: Encounter type: initial encounter Qualified Code(s): T45.515A - Adverse effect of anticoagulants, initial encounter Knee pain, acute Qualifiers: Laterality: left Qualified Code(s): M25.562 - Pain in left knee Disposition: Still a Patient at [facility] Decision to Admit: Admit from ER Decision to Admit Date: 10/11/18 Decision to Admit Time: 06:53 Condition: (2) Stable Forms: Patient Portal Access Quality - Quality Measures Quality Measures: N/A - Blood Pressure Screening Does Patient Have Any of the Following: Active Dx of HTN Blood Pressure Classification: Hypertensive Reading Systolic Measurement: 179 Diastolic Measurement: 98 Screening for High Blood Pressure: Patient Exclusion, Hx of HTN [[id number]]
[2018-10-11] MEDS ORDERED: MORPHINE SULFATE 5 MG/ML VIAL IVP PRN (08:35)
[2018-10-11] MEDS ORDERED: PHYTONADIONE 10 MG/ML AMPUL PO ONE (08:45)
--- NOTE | 2018-10-11 09:23 | History & Physical ---
History of Present Illness - Date of Service Date of Service for History & Physical: 10/11/18 - History of Present Illness Admitting Diagnosis: hyperanticoagulated, acute knee pain, renal insufficiency, unable to ambulate History of Present Illness: Mrs. Plunkett is a 88 y/o female who presents with complaint of severe left knee pain since yesterday. She says that the pain is 10/10 in severity and she has been unable to walk on it. The patient states that she has not taken her Coumadin in about 2 days due to elevated INR. She says she was concerned that she developed a blood clot and that's what made her come in. She denies any injury to the knee but admits to ongoing edema of both legs. She was most recently taken off of Xarelto and started on Coumadin with pharmacy monitoring due to cost. She does have easy bruising but denies any rectal, vaginal or oral bleeding. On presentation to the ED the patient was noted to have swollen left knee and wa s unable to bear weight. Her PT/INR was supratherapeutic 49.1/5.2 and her hemoglobin was 8.6 which is her baseline. Xray of the left knee shows moderate effusion and the patient is admitted to the general medical floor for athrocentesis and reversal of coagulation. Travel Screening - Travel/Exposure Within Last 30 Days Have you traveled within the last 30 days?: No - Travel/Exposure Within Last Year Have you traveled outside the [place] in the last year?: No - Additonal Travel Details Have you been exposed to anyone with a communicable illness?: No - Travel Symptoms Symptom Screening: None Review of Systems Constitutional: Reports: As per HPI. Denies: Chills, Fever, Malaise, Night sweats, Weakness, Weight change Eyes: Reports: As per HPI. Denies: Eye discharge, Eye pain, Photophobia, Vision change ENT: Reports: As per HPI. Denies: Congestion, Dental pain, Ear pain, Epistaxis, Hearing loss, Throat pain Respiratory: Reports: As per HPI. Denies: Cough, Dyspnea, Hemoptysis, Stridor, Wheezes Cardiovascular: Reports: As per HPI, Arrhythmia. Denies: Chest pain, Dyspnea on exertion, Edema, Murmurs, Orthopnea, Palpitations, Paroxysmal nocturnal dyspnea, Rheumatic Fever, Syncope Endocrine: Reports: As per HPI. Denies: Fatigue, Heat or cold intolerance, Polydipsia, Polyuria Gastrointestinal: Reports: As per HPI. Denies: Abdominal pain, Constipation, Diarrhea, Hematemesis, Hematochezia, Melena, Nausea, Vomiting Genitourinary: Reports: As per HPI. Denies: Abnormal menses, Discharge, Dyspareunia, Dysuria, Frequency, Hematuria, Incontinence, Retention, Urgency Musculoskeletal: Reports: As per HPI, Joint swelling. Denies: Arthralgia, Back pain, Gout, Myalgia, Neck pain Skin: Reports: As per HPI. Denies: Bruising, Change in color, Change in hair/nails, Lesions, Pruritus, Rash Neurological: Reports: As per HPI. Denies: Abnormal gait, Confusion, Headache, Numbness, Paresthesias, Seizure, Tingling, Tremors, Vertigo, Weakness Psychiatric: Reports: As per HPI. Denies: Anxiety, Auditory hallucinations, Depression, Homicidal thoughts, Suicidal thoughts, Visual hallucinations Hematological/Lymphatic: Reports: As per HPI. Denies: Anemia, Blood Clots, Easy bleeding, Easy bruising, Swollen glands Past Medical History - SOCIAL HISTORY Smoking Status: Never smoker Alcohol Use: None Drug Use: None - RESPIRATORY Hx Respiratory Disorders: No - CARDIOVASCULAR Hx Cardio Disorders: Yes Hx Edema: Yes Hx Hypertension: Yes Hx Irregular Heartbeat: Yes (Afib) Comment:: Pt unaware of when in Afib, "goes in and out without warning" no s/s - NEURO Hx Neuro Disorders: No - GI Hx GI Disorders: Yes Hx Abdominal Pain: Yes Hx Diverticulitis: Yes (Mar, 2016) Hx of Polyps: Yes - Hx Genitourinary Disorders: No Hx Kidney Stones: Yes (small on right) - ENDOCRINE Hx Endocrine Disorders: Yes Hx Diabetes: No Hx Thyroid Disease: Yes (hypo) - MUSCULOSKELETAL Hx Musculoskeletal Disorders: Yes Hx Arthritis: Yes Hx Osteoporosis: Yes Comment:: DDD-neck - PSYCH Hx Psych Problems: No - HEMATOLOGY/ONCOLOGY Hx Hematology/Oncology Disorders: Yes Hx Bruising: Yes (d/t NSAID & Asa) Family Medical History Any Significant Family History?: No Hx Cancer: Brother/Sister Hx Depression: Brother/Sister Hx Heart Disease: Mother, Brother/Sister *Heart Comment: Son H&P Meds/Allergies - Allergies Allergies: Allergies Allergy/AdvReac Type Severity Reaction Status Date / Time No Known Drug Allergies Allergy Verified 10/11/18 05:31 - Home Medications Home Medications Medication Instructions Recorded Confirmed Last Taken Fexofenadine HCl [Melinda Allergy] 180 mg PO DAILY 10/11/18 10/11/18 10/10/18 Simvastatin 40 mg PO QHS 10/11/18 10/11/18 10/10/18 22:00 Previous Rx's Medication Instructions Recorded Ascorbic Acid [Vitamin C] 1,000 mg PO BID #60 tab 08/20/18 - Active Medications Active Medications: Current Medications Acetaminophen (Tylenol 325mg) 650 mg PO Q6H PRN PRN Reason: PAIN - MILD(1-4)/FEVER Amlodipine Besylate (Norvasc) 5 mg PO DAILY JERRY Ferrous Sulfate (Iron) 325 mg PO BID JERRY Fluticasone Propionate (Flonase) 2 spray NA DAILY JERRY Furosemide (Lasix) 20 mg PO BIDDIUR JERRY Hydralazine HCl (Apresoline) 100 mg PO TID JERRY Levothyroxine Sodium (Synthroid) 100 mcg PO DAILYTHY JERRY Morphine Sulfate (Morphine Sulfate) 1 mg IVP Q4H PRN PRN Reason: PAIN - MOD TO SEVERE (5-10) Stop: 10/18/18 08:36 Potassium Chloride (Klor-Con) 10 meq PO DAILY JERRY Simvastatin (Zocor) 40 mg PO QHS JERRY Timolol Maleate (Timoptic) 1 drop OPTH BID JERRY Physical Exam - Vital Signs Vital Signs: Vital Signs - Last 24 Hrs Temp Pulse Pulse Resp BP BP BP 10/11/18 08:35 98.0 F 67 15 189/89 10/11/18 06:51 68 16 184/95 10/11/18 06:03 59 L 18 174/74 10/11/18 05:18 98.3 F 65 18 179/98 Pulse Ox 10/11/18 08:35 97 10/11/18 06:51 10/11/18 06:03 98 10/11/18 05:18 99 - General General Appearance: Alert, Oriented x3, Cooperative, Mild distress Limitations: No limitations - Head Head exam: Normal inspection - Eye Eye exam: Normal appearance, PERRL, EOMI Pupils: Normal accommodation - ENT ENT exam: Normal exam, Mucous membranes moist, Normal external ear exam, Normal orophraynx Ear exam: Normal external inspection. negative: External canal tenderness Nasal Exam: Normal inspection. negative: Discharge, Sinus tenderness Mouth exam: Normal external inspection, Tongue normal Teeth exam: Normal inspection. negative: Dental caries Throat exam: Normal inspection. negative: Tonsillar erythema, Tonsillar exudate - Neck Neck exam: Normal inspection, Full ROM. negative: Tenderness - Respiratory Respiratory exam: Normal lung sounds bilaterally. negative: Respiratory distress - Cardiovascular Cardiovascular Exam: Normal rhythm, Normal heart sounds, Irregular rhythm - GI/Abdominal GI/Abdominal exam: Soft, Normal bowel sounds. negative: Tenderness - Rectal Rectal exam: Deferred - exam: Deferred - Extremities Extremities exam: Calf tenderness, Normal capillary refill, Tenderness, Other (exquisite tenderness and swelling of knee and calf L) - Back Back exam: Reports: Normal inspection, Full ROM. Denies: Muscle spasm, Rash noted, Tenderness - Neurological Neurological exam: Alert, Normal gait, Oriented X3, Reflexes normal - Psychiatric Psychiatric exam: Normal affect, Normal mood - Skin Skin exam: Dry, Intact, Normal color, Warm Results - Labs Result Diagrams: 10/11/18 05:30 10/11/18 05:30 Labs Last 24 Hours: Laboratory Results - last 24 hr 10/11/18 10/11/18 10/11/18 05:30 05:30 05:30 WBC 6.2 RBC 2.90 L Hgb 8.6 L Hct 27.9 L MCV 96.2 MCH 29.6 MCHC 30.8 L RDW 14.4 Plt Count 273 MPV 10.2 Gran % 56.0 Lymphocytes % 26.1 Monocytes % 11.3 H Eosinophils % 6.3 H Basophils % 0.3 Absolute Neutrophils 3.48 PT 49.1 H* INR 5.2 H* Sodium 141 Potassium 4.1 Chloride 101 Carbon Dioxide 25.0 Anion Gap 15.0 BUN 36 H Creatinine 1.7 H Estimated GFR 30 Random Glucose 103 Calcium 10.6 H VTE H&P Assessment - Risk for VTE Risk for VTE: Yes Risk Level: High Risk Assessment Date: 10/11/18 Risk Assessment Time: 10:25 VTE Orders Placed or Will Be Placed: Yes Plan - Inpatient Certification Inpatient Certification: Admit to inpatient care: Based on my medical assessment, after consideration of patient's risk factors (age, co-morbidities and patient presenting symptoms and acuity), I expect that this patient will remain in the hospital greater than or equal to two midnights and that the services needed warrant inpatient care fred use: Patient Risk Factors: [] Estimated length of stay: [] The patient may reasonably be expected to be discharged or transferred to a hospital within 96 hours after admission to [facility]. Services needed: [] Post hospital care (if known): [] I certify that my determination is in accordance with my understanding of Medicare requirements for reasonable and necessary inpatient services. - Detailed Diagnosis and Plan (1) Knee pain, acute Current Visit: Yes Status: Acute Qualifiers: Laterality: left Qualified Code(s): M25.562 - Pain in left knee Base Code: M25.569 - PAIN IN UNSPECIFIED KNEE Comment: 10/11/18: - Acute left knee pain and swelling. - Xray indicating effusion. - Tylenol 500mg Q6H PRN,Morphine 2mg Q4H PRN. - Elevation and stabilization of knee. Concern for hemarthrosis of left knee. - Pending decrease in INR, fluid evac w/ athrocentesis and Orthopedic consult. (2) Supratherapeutic INR Current Visit: Yes Status: Acute Base Code: R79.1 - ABNORMAL COAGULATION P ROFILE Comment: 10/11/18: - PT/INR: 45.1/5.4 - Holding Coumadin, administer Vit K 5mg, repeat PT/INR in am. - Concern for hemarthorsis of the left. (3) Renal insufficiency Current Visit: Yes Status: Chronic Base Code: N28.9 - DISORDER OF KIDNEY AND URETER, UNSPECIFIED Comment: 10/11/18: - Chronic kidney disease stage IV - Bun/Cr: 36/1.7, GFR 30 which is baseline. - Avoid nephrotoxic agents. (4) Full code status Current Visit: No Status: Acute Base Code: Z78.9 - OTHER SPECIFIED HEALTH STATUS Comment: 10/11/18: Patient is a full code (5) Hypertension Current Visit: No Status: Acute Base Code: I10 - ESSENTIAL (PRIMARY) HY PERTENSION Comment: 10/11/18: - BP poorly controlled. - On Amlodipine 5mg daily and Hydralazine 100mg TID at home. - Add Metoprolol 12.5mg daily, hold for SBP<140 - Vitals every q4h. (6) Hypothyroid Current Visit: Yes Status: Acute Base Code: E03.9 - HYPOTHYROIDISM, UNSPE CIFIED Comment: 10/11/18: - Resume Levothyroxine 100mcg daily. (7) Chronic atrial fibrillation Current Visit: Yes Status: Acute Base Code: I48.2 - CHRONIC ATRIAL FIBRILLATION Comment: 10/11/18: - Not on rate controlling medication. - Anticoagulated on Coumadin.
[2018-10-11] MEDS: HYDRALAZINE HCL 25 MG TABLET PO SCH ×3 (10:28→21:01)
[2018-10-11] MEDS: LEVOTHYROXINE SODIUM 100 MCG TABLET PO SCH (10:29)
[2018-10-11] MEDS: FLUTICASONE PROPIONATE 50MCG NASAL 16 GM BTL SCH (10:29)
[2018-10-11] MEDS: POTASSIUM CHLORIDE 10 MEQ TAB PO SCH (10:29)
[2018-10-11] MEDS: FUROSEMIDE 20 MG TABLET PO SCH ×2 (10:29→16:57)
[2018-10-11] MEDS: AMLODIPINE BESYLATE 5MG TAB PO SCH (10:29)
[2018-10-11] MEDS: BRIMONIDINE TARTRATE 0.2% OPTHALMIC DROPS OP SCH ×2 (10:29→21:01)
[2018-10-11] MEDS: TIMOLOL MALEATE 0.5% 5ML BTL OPTH SCH ×3 (10:35→21:02)
[2018-10-11] MEDS ORDERED: ZINC OXIDE 28.35 GM TUBE TOP ONE (12:56)
[2018-10-11] MEDS ORDERED: ZINC OXIDE 28.35 GM TUBE TOP PRN (12:58)
[2018-10-11] MEDS: METOPROLOL SUCC 25 MG TAB.ER PO SCH (13:09)
[2018-10-11] MEDS: MORPHINE SULFATE 5 MG/ML VIAL IVP PRN (17:15)
[2018-10-11] MEDS: FERROUS SULFATE 325 MG TAB PO SCH (21:01)
[2018-10-11] MEDS: SIMVASTATIN 20 MG TABLET PO SCH (21:01)
[2018-10-12] MEDS: LEVOTHYROXINE SODIUM 100 MCG TABLET PO SCH (06:13)
[2018-10-12 06:27] LABS: ABSOLUTE NEUTROPHIL COUNT 3.02; BASO % 0.2 % (0-6); EOS % 5.4 % (0-6); GRAN % 52.5 % (47-80); HEMATOCRIT 24.2 % (35.0-47.0); HEMOGLOBIN 7.3 gm/dl (11.6-16.0); LYMPH % 29.2 % (16-45); MEAN CELL VOLUME 97.2 fl (81-97); MEAN CORPUSCULAR HEMOGLOBIN 29.3 pg (27-33); MEAN CORPUSCULAR HGB CONC 30.2 g/dl (32-36); MEAN PLATELET VOLUME 10.5 fl (7.4-10.4); MONO % 12.7 % (0-9); PLATELET COUNT 226 K/uL (130-400); RED BLOOD COUNT 2.49 M/uL (3.80-5.40); RED CELL DISTRIBUTION WIDTH 14.5 % (11.5-14.5); WHITE BLOOD COUNT W/O DIFF 5.8 K/uL (4.2-12.2)
[2018-10-12 06:36] LABS: INR 1.7; PROTHROMBIN TIME (PATIENT) 17.2 SECONDS (9.5-12.1)
[2018-10-12 06:39] LABS: CREATININE 1.6 mg/dL (0.5-0.9)
--- NOTE | 2018-10-12 08:43 | Physician Progress Note ---
Subjective - Date Date of Physician Progress Note: 10/12/18 Objective - Vital Signs Vital Signs: Vital Signs - Last 24 Hrs Temp Pulse Resp BP BP Pulse Ox 10/12/18 01:50 98.3 F 53 L 16 99/53 96 10/11/18 21:00 16 10/11/18 16:35 98 F 70 16 165/81 98 10/11/18 09:00 70 16 - General General Appearance: Alert, Oriented x3, Cooperative, Mild distress Limitations: No limitations - Head Head exam: Normal inspection - Eye Eye exam: Normal appearance, PERRL, EOMI Pupils: Normal accommodation - ENT ENT exam: Normal exam, Mucous membranes moist, Normal external ear exam, Normal orophraynx Ear exam: Normal external inspection. negative: External canal tenderness Nasal Exam: Normal inspection. negative: Discharge, Sinus tenderness Mouth exam: Normal external inspection, Tongue normal Teeth exam: Normal inspection. negative: Dental caries Throat exam: Normal inspection. negative: Tonsillar erythema, Tonsillar exudate - Neck Neck exam: Normal inspection, Full ROM. negative: Tenderness - Respiratory Respiratory exam: Normal lung sounds bilaterally. negative: Respiratory distress - Cardiovascular Cardiovascular Exam: Normal rhythm, Normal heart sounds, Irregular rhythm - GI/Abdominal GI/Abdominal exam: Soft, Normal bowel sounds. negative: Tenderness - Rectal Rectal exam: Deferred - exam: Deferred - Extremities Extremities exam: Calf tenderness, Normal capillary refill, Tenderness, Other (exquisite tenderness and swelling of knee and calf L) - Back Back exam: Reports: Normal inspection, Full ROM. Denies: Muscle spasm, Rash noted, Tenderness - Neurological Neurological exam: Alert, Normal gait, Oriented X3, Reflexes normal - Psychiatric Psychiatric exam: Normal affect, Normal mood - Skin Skin exam: Dry, Intact, Normal color, Warm Assessment and Plan - Assessment and Plan (1) Knee pain, acute Current Visit: Yes Status: Acute Qualifiers: Laterality: left Qualified Code(s): M25.562 - Pain in left knee Base Code: M25.569 - PAIN IN UNSPECIFIED KNEE Comment: 10/12/18: - Acute left knee pain and swelling. - Xray indicating effusion. Doppler US showing complex structure of the popl iteal vein which is better identified with MRI. MRI of left knee ordered for 10/13. - Tylenol 500mg Q6H PRN,Morphine 2mg Q4H PRN. - Elevation and stabilization of knee. Concern for hemarthrosis of left knee. - PT/INR: 17/1.7 after administering Vit K 5mg. - Patient consented and advised of risk of bleeding, pain and infection. - Procedure: Time out at: Location identified, Patient ID/Demographics. - Performed by: Dr. Benson, Nurse: Isatu - Prep: Area of insertion identified and marked. Cleaned with Povidine and draped with sterile dressing. - Using a 23 guage needle and 5cc syringe 1% lidocaine was injected into the area surrounding the knee effusion. - Using a 18 gauge needle and 30 cc syringe (2) Supratherapeutic INR Current Visit: Yes Status: Acute Base Code: R79.1 - ABNORMAL COAGULATION PROFILE Comment: 10/12/18: - PT/INR: 45.1/5.4 --> 17.2/1.7 - Holding Coumadin, administer Vit K 5mg, repeat PT/INR in am. - Concern for hemarthorsis of the left. - May resume Coumadin pending arthrocentesis and hemarthrosis ruled out. (3) Renal insufficiency Current Visit: Yes Status: Chronic Base Code: N28.9 - DISORDER OF KIDNEY AND URETER, UNSPECIFIED Comment: 10/12/18: - Stable - Chronic kidney disease stage IV - Bun/Cr: 36/1.7, GFR 30 which is baseline. - Avoid nephrotoxic agents. (4) Anemia Current Visit: No Status: Acute Qualifiers: Anemia type: due to chronic kidney disease Qualified Code(s): D64.9 - Anemia, unspecified Base Code: D64.9 - ANEMIA, UNSPECIFIED Comment: 10/12/18: - MCV 97.2, Hgb 7.3 compared to 8.6. - Hold anticogulation. - Type and screen, transfusse 1 unit PRBC - Check CBC with morning labs. (5) Hypertension Current Visit: No Status: Acute Base Code: I10 - ESSENTIAL (PRIMARY) HYPERTENSION Comment: 10/12/18: - Improvement in BP with BB addeded. - On Amlodipine 5mg daily and Hydralazine 100mg TID at home. - Add Metoprolol 12.5mg daily, hold for SBP<140 - Vitals every q4h. (6) Hypothyroid Current Visit: Yes Status: Acute Base Code: E03.9 - HYPOTHYROIDISM, UNSPECIFIED Comment: 10/12/18: - Continue Levothyroxine 100mcg daily. (7) Chronic atrial fibrillation Current Visit: Yes Status: Acute Base Code: I48.2 - CHRONIC ATRIAL FIBRILLATION Comment: 10/12/18: - Stable. - Not on rate controlling medication. - Anticoagulated on Coumadin. (8) Full code status Current Visit: No Status: Acute Base Code: Z78.9 - OTHER SPECIFIED HEALTH STATUS Comment: 10/12/18: Patient is a full code Results - Labs Result Diagrams: 10/12/18 06:13 10/12/18 06:13 Labs Last 24 Hours: Laboratory Results - last 24 hr 10/12/18 10/12/18 10/12/18 06:13 06:13 06:13 WBC 5.8 RBC 2.49 L Hgb 7.3 L Hct 24.2 L MCV 97.2 H MCH 29.3 MCHC 30.2 L RDW 14.5 Plt Count 226 MPV 10.5 H Gran % 52.5 Lymphocytes % 29.2 Monocytes % 12.7 H Eosinophils % 5.4 Basophils % 0.2 Absolute Neutrophils 3.02 PT 17.2 H INR 1.7 Sodium 140 Potassium 4.2 Chloride 102 Carbon Dioxide 26.0 Anion Gap 12.0 BUN 35 H Creatinine 1.6 H Estimated GFR 32 Random Glucose 89 Calcium 9.2 DVT/PE Assessment - Risk for VTE Risk for VTE: No Risk Level: High Risk Assessment Date: 10/11/18 Risk Assessment Time: 10:25 VTE Orders Placed or Will Be Placed: Yes - Active Medicaitons Current Medications: Current Medications Acetaminophen (Tylenol 325mg) 650 mg PO Q6H PRN PRN Reason: PAIN - MILD(1-4)/FEVER Amlodipine Besylate (Norvasc) 5 mg PO DAILY [facility] Last Admin: 10/11/18 10:29 Dose: 5 mg Documented by: Brimonidine Tartrate (Brimonidine Tartrate) 1 drop OP BID [facility] Last Admin: 10/11/18 21:01 Dose: 1 drop Documented by: Ferrous Sulfate (Iron) 325 mg PO BID [facility] Last Admin: 10/11/18 21:01 Dose: 325 mg Documented by: Fluticasone Propionate (Flonase) 2 spray NA DAILY [facility] Last Admin: 10/11/18 10:29 Dose: 2 spray Documented by: Furosemide (Lasix) 20 mg PO BIDDIUR [facility] Last Admin: 10/11/18 16:57 Dose: 20 mg Documented by: Hydralazine HCl (Apresoline) 100 mg PO TID [facility] Last Admin: 10/11/18 21:01 Dose: 100 mg Documented by: Levothyroxine Sodium (Synthroid) 100 mcg PO DAILYTHY [facility] Last Admin: 10/12/18 06:13 Dose: 100 mcg Documented by: Metoprolol Succinate (Toprol Xl) 12.5 mg PO DAILY [facility] Last Admin: 10/11/18 13:09 Dose: 12.5 mg Documented by: Morphine Sulfate (Morphine Sulfate) 2 mg IVP Q4H PRN PRN Reason: PAIN - MODERATE (5-7) Stop: 10/18/18 11:01 Last Admin: 10/11/18 17:15 Dose: 2 mg Documented by: Potassium Chloride (Klor-Con) 10 meq PO DAILY [facility] Last Admin: 10/11/18 10:29 Dose: 10 meq Documented by: Simvastatin (Zocor) 40 mg PO QHS [facility] Last Admin: 10/11/18 21:01 Dose: 40 mg Documented by: Timolol Maleate (Timoptic) 1 drop OPTH BID [facility] Last Admin: 10/11/18 21:02 Dose: 1 drop Documented by: Zinc Oxide (Desitin) 10 gm TOP ASDIR PRN PRN Reason: RASH AMI Plan - Labs Result Diagrams: 10/12/18 06:13 10/12/18 06:13
[2018-10-12] MEDS: MORPHINE SULFATE 5 MG/ML VIAL IVP PRN (09:40)
[2018-10-12] MEDS ORDERED: LIDOCAINE (XYLOCAINE) 1% MPF 10MG/ML 5ML VIAL SQ ONE (10:00)
[2018-10-12] MEDS: FERROUS SULFATE 325 MG TAB PO SCH ×2 (10:20→21:45)
[2018-10-12] MEDS: FUROSEMIDE 20 MG TABLET PO SCH ×2 (10:20→16:59)
[2018-10-12] MEDS: AMLODIPINE BESYLATE 5MG TAB PO SCH (10:20)
[2018-10-12] MEDS: BRIMONIDINE TARTRATE 0.2% OPTHALMIC DROPS OP SCH ×2 (10:21→21:46)
[2018-10-12] MEDS: HYDRALAZINE HCL 25 MG TABLET PO SCH ×3 (10:21→21:46)
[2018-10-12] MEDS: POTASSIUM CHLORIDE 10 MEQ TAB PO SCH (10:21)
[2018-10-12] MEDS: FLUTICASONE PROPIONATE 50MCG NASAL 16 GM BTL SCH (10:21)
[2018-10-12] MEDS: TIMOLOL MALEATE 0.5% 5ML BTL OPTH SCH ×2 (10:22→21:47)
[2018-10-12] MEDS: METOPROLOL SUCC 25 MG TAB.ER PO SCH (10:23)
--- NOTE | 2018-10-12 10:31 | Physician Addendum ---
Addendum (Physician) 10/12/18 10:28 Approx 25 cc of bloody fluid drawn from the knee. The patient tolerated procedure well and no bleeding was observed after. Provided additional dose of moprhine 1mg and dressed area of procedure. Informally consulted with Orthopedic surgery who recommended conservative management allowing for absorption of blood from joint and control of pain for now. MRI of left knee pending tomorrow.
[2018-10-12 11:35] LABS: ABO GROUP A; RH TYPE POSITIVE
[2018-10-12 11:38] LABS: ANTIBODY SCREEN NEGATIVE (NEGATIVE)
[2018-10-12 12:01] LABS: IMMED. SPIN CROSSMATCH COMPATIBLE
[2018-10-12 13:44] LABS: CRYSTALLOID MATERIAL Not Present
[2018-10-12] MEDS: ACETAMINOPHEN 325 MG TAB PO PRN (18:09)
[2018-10-12] MEDS: SIMVASTATIN 20 MG TABLET PO SCH (21:45)
[2018-10-13] MEDS: LEVOTHYROXINE SODIUM 100 MCG TABLET PO SCH ×2 (05:53→07:04)
[2018-10-13] MEDS: ACETAMINOPHEN 325 MG TAB PO PRN ×2 (05:53→17:25)
[2018-10-13 06:39] LABS: HEMATOCRIT 27.4 % (35.0-47.0); HEMOGLOBIN 8.5 gm/dl (11.6-16.0); MEAN CELL VOLUME 94.2 fl (81-97); MEAN CORPUSCULAR HEMOGLOBIN 29.2 pg (27-33); MEAN PLATELET VOLUME 9.7 fl (7.4-10.4); PLATELET COUNT 212 K/uL (130-400); RED BLOOD COUNT 2.91 M/uL (3.80-5.40); RED CELL DISTRIBUTION WIDTH 15.2 % (11.5-14.5); WHITE BLOOD COUNT W/O DIFF 5.4 K/uL (4.2-12.2)
[2018-10-13 06:52] LABS: CREATININE 1.5 mg/dL (0.5-0.9)
[2018-10-13 07:09] LABS: PLATELET ESTIMATE NORMAL (NORMAL)
--- NOTE | 2018-10-13 07:09 | US VENOUS DOPPLER REPORT ---
EXAM: ULTRASOUND VENOUS DOPPLER LOWER EXT LT HISTORY: PAIN. TECHNIQUE: Duplex Doppler ultrasound examination of the deep venous system of the left lower extremity performed utilizing massey-scale imaging, color Doppler, and compression. COMPARISON: 08/17/18 FINDINGS: Normal-appearing phasicity is seen within the external iliac vein, profunda vein, and superficial femoral vein. The common femoral vein not visualized due to truncation of the study due to patient pain. No compression images obtained. Color Doppler flow is seen within the above vessels as well as the popliteal. There is a complex structure again present within the posterior popliteal space measuring 7.3 x 2.6 x 2.1 cm. IMPRESSION: 1. LIMITED EVALUATION THE PATIENT TRUNCATED THE STUDY EARLY DUE TO DISCOMFORT. THE LACK OF COMPRESSION IMAGING LIMITS EVALUATION FOR DEEP VENOUS THROMBOSIS. IF FURTHER IMAGING IS NEEDED CLINICALLY, CONSIDER CT VENOGRAPHY. 2. THE COMPLEX STRUCTURE AGAIN PRESENT WITHIN THE POPLITEAL SPACE ON THE LEFT MAY REPRESENT A COMPLEX POPLITEAL CYST. MRI EXAMINATION CAN FURTHER INVESTIGATE. 3. Babita. PHYSICIAN NOTIFIED BY VOICE CLIP. JOB NUMBER: [id number] MTDD
[2018-10-13] MEDS ORDERED: MAGNESIUM HYDROXIDE 30 ML UDC PO PRN (07:52)
--- NOTE | 2018-10-13 08:04 | RADIOLOGY REPORT ---
EXAM: KNEE, LEFT 1 or 2 VIEWS HISTORY: LEFT KNEE PAIN, NO INJURY. TECHNIQUE: Frontal and lateral. COMPARISON: FINDINGS: Bones appear mildly osteopenic. There is mild tricompartmental spurring seen to the greatest extent within the patellofemoral compartment. There is a large joint effusion. No radiopaque foreign body visualized. Overlying opacification limits evaluation. There is atherosclerosis. IMPRESSION: TRICOMPARTMENTAL DEGENERATIVE CHANGES. LARGE JOINT EFFUSION. MRI CAN STUDY FURTHER IF CLINICALLY NEEDED. JOB NUMBER: [id number] [facility]
--- NOTE | 2018-10-13 08:57 | Physician Progress Note ---
Subjective - Date Date of Physician Progress Note: 10/13/18 - Subjective Subjective Comment: The patient says that her pain has improved since yesterday. She was able to get up and go to the restroom using the rolling walker. She has only been managing her pain with Tylenol and says that she is hesitant to use morphine. Objective - Vital Signs Vital Signs: Vital Signs - Last 24 Hrs Temp Pulse Resp BP Pulse Ox 10/13/18 07:53 20 10/13/18 06:00 99.0 F 63 18 171/80 97 10/12/18 20:00 98.8 F 64 18 120/57 96 10/12/18 09:00 70 16 - General General Appearance: Alert, Oriented x3, Cooperative, Mild distress Limitations: No limitations - Head Head exam: Normal inspection - Eye Eye exam: Normal appearance, PERRL, EOMI Pupils: Normal accommodation - ENT ENT exam: Normal exam, Mucous membranes moist, Normal external ear exam, Normal orophraynx Ear exam: Normal external inspection. negative: External canal tenderness Nasal Exam: Normal inspection. negative: Discharge, Sinus tenderness Mouth exam: Normal external inspection, Tongue normal Teeth exam: Normal inspection. negative: Dental caries Throat exam: Normal inspection. negative: Tonsillar erythema, Tonsillar exudate - Neck Neck exam: Normal inspection, Full ROM. negative: Tenderness - Respiratory Respiratory exam: Normal lung sounds bilaterally. negative: Respiratory dis tress - Cardiovascular Cardiovascular Exam: Normal rhythm, Normal heart sounds, Irregular rhythm Peripheral Pulses: 2+: Radial (R), Radial (L) - GI/Abdominal GI/Abdominal exam: Soft, Normal bowel sounds. negative: Tenderness - Rectal Rectal exam: Deferred - exam: Deferred - Extremities Extremities exam: Calf tenderness, Normal capillary refill, Tenderness, Other (left knee swelling reduced and not as tender. ) - Back Back exam: Reports: Normal inspection, Full ROM. Denies: Muscle spasm, Rash noted, Tenderness - Neurological Neurological exam: Alert, Normal gait, Oriented X3, Reflexes normal - Psychiatric Psychiatric exam: Normal affect, Normal mood - Skin Skin exam: Dry, Intact, Normal color, Warm Assessment and Plan - Inpatient Certification Inpatient Certification: Admitted due to acute knee pain, supratherapeutic INR. 10/13/18 09:00 - Assessment and Plan (1) Knee pain, acute Current Visit: Yes Status: Acute Qualifiers: Laterality: left Qualified Code(s): M25.562 - Pain in left knee Base Code: M25.569 - PAIN IN UNSPECIFIED KNEE Comment: 10/13/18: - Patient ambulating with use of rolling walker. Swelling of left knee reduced since yesterday. - Xray indicating large effusion. Doppler US showing complex structure of the popliteal vein which is better identified with MRI. MRI of left knee pending 10/13. - Tylenol 500mg Q6H PRN, [place] 5/325mg Q4H PRN. - Athrocentesis yesterday with 25cc of bloody discharge. Lab findings with no crystals, culture pending. (2) Renal insufficiency Current Visit: Yes Status: Chronic Base Code: N28.9 - DISORDER OF KIDNEY AND URETER, UNSPECIFIED Comment: 10/12/18: - Stable - Chronic kidney disease stage IV - Bun/Cr: 36/1.7, GFR 30 which is baseline. - Avoid nephrotoxic agents. (3) Anemia Current Visit: No Status: Acute Qualifiers: Anemia type: due to chronic kidney disease Base Code: D64.9 - ANEMIA, UNSPECIFIED Comment: 10/13/18: - Hgb 8.5gm/dL after 1 unit PRBC administered. - MCV 97.2, Hgb 7.3 compared to 8.6. - Hold anticogulation. (4) Hypertension Current Visit: No Status: Acute Base Code: I10 - ESSENTIAL (PRIMARY) HYPERTENSION Comment: 10/13/18: - On Amlodipine 5mg daily and Hydralazine 100mg TID at home. - Vitals every q4h. (5) Hypothyroid Current Visit: Yes Status: Acute Base Code: E03.9 - HYPOTHYROIDISM, UNSPECIFIED Comment: 10/13/18: - Continue Levothyroxine 100mcg daily. (6) Chronic atrial fibrillation Current Visit: Yes Status: Acute Base Code: I48.2 - CHRONIC ATRIAL FIBRILLATION Comment: 10/13/18: - Stable. - Not on rate controlling medication. - Anticoagulated on Coumadin. 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 - PT/INR: 45.1/5.4 --> 17.2/1.7 - Resumption of anticoagualtion to be discussed at discharge. The patient has had GI bleed, admission for hemarthrosis in the past and has significant bruising. Risk v benefit of continued anticoagulation to be further discussed with Cardiology. (8) Full code status Current Visit: No Status: Acute Base Code: Z78.9 - OTHER SPECIFIED HEALTH STATUS Comment: 10/13/18: Patient is a full code (9) DVT prophylaxis Current Visit: Yes Status: Acute Base Code: Z29.9 - ENCOUNTER FOR PROPHYLACTIC MEASURES, UNSPECIFIED Comment: 10/13/18: - High risk of DVT 2/2 a fib, venous insufficiency, previous DVTs, limited mobility. - Lovenox 30mg daily due to renal insufficiency. Results - Labs Result Diagrams: 10/13/18 06:30 10/13/18 06:30 Labs Last 24 Hours: Laboratory Results - last 24 hr 10/12/18 10/12/18 10/12/18 06:10 10:24 11:49 WBC RBC Hgb Hct MCV MCH MCHC RDW Plt Count MPV Neutrophils % Eosinophils % Basophils % Absolute Neutrophils Lymphocytes Monocytes Basophils Platelet Estimate Eosinophil Count Sodium Potassium Chloride Carbon Dioxide Anion Gap BUN Creatinine Estimated GFR Random Glucose Calcium Body Fluid Site Lt knee Synovial Crystals Not present ABO Group A Rh Factor Positive Antibody Screen Negative Crossmatch Yes 10/13/18 10/13/18 06:30 06:30 WBC 5.4 RBC 2.91 L Hgb 8.5 L Hct 27.4 L MCV 94.2 MCH 29.2 MCHC 31.0 L RDW 15.2 H Plt Count 212 MPV 9.7 Neutrophils % 51.0 Eosinophils % Not Reportable Basophils % Not Reportable Absolute Neutrophils Not Reportable Lymphocytes 27.0 Monocytes 18.0 H Basophils 0.0 Platelet Estimate Normal Eosinophil Count 4.0 Sodium 139 Potassium 3.9 Chloride 101 Carbon Dioxide 25.0 Anion Gap 13.0 BUN 33 H Creatinine 1.5 H Estimated GFR 35 Random Glucose 93 Calcium 9.2 Body Fluid Site Synovial Crystals ABO Group Rh Factor Antibody Screen Crossmatch DVT/PE Assessment - Risk for VTE Risk for VTE: Yes Risk Level: High Risk Assessment Date: 10/11/18 Risk Assessment Time: 10:25 VTE Orders Placed or Will Be Placed: Yes - Active Medicaitons Current Medications: Current Medications Acetaminophen (Tylenol 325mg) 650 mg PO Q6H PRN PRN Reason: PAIN - MILD(1-4)/FEVER Last Admin: 10/13/18 05:53 Dose: 650 mg Documented by: Amlodipine Besylate (Norvasc) 5 mg PO DAILY [facility] Last Admin: 10/12/18 10:20 Dose: 5 mg Documented by: Brimonidine Tartrate (Brimonidine Tartrate) 1 drop OP BID [facility] Last Admin: 10/12/18 21:46 Dose: 1 drop Documented by: Ferrous Sulfate (Iron) 325 mg PO BID [facility] Last Admin: 10/12/18 21:45 Dose: 325 mg Documented by: Fluticasone Propionate (Flonase) 2 spray NA DAILY [facility] Last Admin: 10/12/18 10:21 Dose: 2 spray Documented by: Furosemide (Lasix) 20 mg PO BIDDIUR [facility] Last Admin: 10/12/18 16:59 Dose: 20 mg Documented by: Hydralazine HCl (Apresoline) 100 mg PO TID [facility] Last Admin: 10/12/18 21:46 Dose: 100 mg Documented by: Levothyroxine Sodium (Synthroid) 100 mcg PO DAILYTHY [facility] Last Admin: 10/13/18 07:04 Dose: Not Given Documented by: Magnesium Hydroxide (Milk Of Magnesium) 30 ml PO DAILY PRN PRN Reason: INDIGESTION Morphine Sulfate (Morphine Sulfate) 2 mg IVP Q4H PRN PRN Reason: PAIN - MODERATE (5-7) Stop: 10/18/18 11:01 Last Admin: 10/12/18 09:40 Dose: 2 mg Documented by: Potassium Chloride (Klor-Con) 10 meq PO DAILY [facility] Last Admin: 10/12/18 10:21 Dose: 10 meq Documented by: Simvastatin (Zocor) 40 mg PO QHS [facility] Last Admin: 10/12/18 21:45 Dose: 40 mg Documented by: Timolol Maleate (Timoptic) 1 drop OPTH BID [facility] Last Admin: 10/12/18 21:47 Dose: 1 drop Documented by: Zinc Oxide (Desitin) 10 gm TOP ASDIR PRN PRN Reason: RASH AMI Plan - Labs Result Diagrams: 10/13/18 06:30 10/13/18 06:30
[2018-10-13] MEDS: POTASSIUM CHLORIDE 10 MEQ TAB PO SCH (09:30)
[2018-10-13] MEDS: FUROSEMIDE 20 MG TABLET PO SCH ×2 (09:30→16:31)
[2018-10-13] MEDS: AMLODIPINE BESYLATE 5MG TAB PO SCH (09:30)
[2018-10-13] MEDS: FERROUS SULFATE 325 MG TAB PO SCH ×2 (09:30→22:11)
[2018-10-13] MEDS: HYDRALAZINE HCL 25 MG TABLET PO SCH ×3 (09:30→22:11)
[2018-10-13] MEDS ORDERED: HYDROCODONE/APAP 5/325MG TABLET PO PRN (09:36)
[2018-10-13] MEDS: FLUTICASONE PROPIONATE 50MCG NASAL 16 GM BTL SCH (09:36)
[2018-10-13] MEDS: BRIMONIDINE TARTRATE 0.2% OPTHALMIC DROPS OP SCH ×2 (09:36→22:12)
[2018-10-13] MEDS: TIMOLOL MALEATE 0.5% 5ML BTL OPTH SCH ×2 (09:36→22:12)
[2018-10-13] MEDS: ENOXAPARIN 40 MG/0.4 ML SYR SC SCH (11:17)
[2018-10-13] MEDS: SIMVASTATIN 20 MG TABLET PO SCH (22:11)
[2018-10-14] MEDS: ACETAMINOPHEN 325 MG TAB PO PRN (04:33)
[2018-10-14] MEDS: LEVOTHYROXINE SODIUM 100 MCG TABLET PO SCH (06:19)
[2018-10-14] MEDS: ENOXAPARIN 40 MG/0.4 ML SYR SC SCH (09:58)
[2018-10-14] MEDS: AMLODIPINE BESYLATE 5MG TAB PO SCH (09:59)
[2018-10-14] MEDS: FLUTICASONE PROPIONATE 50MCG NASAL 16 GM BTL SCH (09:59)
[2018-10-14] MEDS: HYDRALAZINE HCL 25 MG TABLET PO SCH ×3 (09:59→22:00)
[2018-10-14] MEDS: FUROSEMIDE 20 MG TABLET PO SCH ×2 (09:59→16:29)
[2018-10-14] MEDS: SENNOSIDES/DOCUSATE SODIUM UD CAPSULE PO SCH (09:59)
[2018-10-14] MEDS: POTASSIUM CHLORIDE 10 MEQ TAB PO SCH (09:59)
[2018-10-14] MEDS: FERROUS SULFATE 325 MG TAB PO SCH ×2 (09:59→22:01)
[2018-10-14] MEDS: BRIMONIDINE TARTRATE 0.2% OPTHALMIC DROPS OP SCH ×2 (10:07→22:01)
[2018-10-14] MEDS: TIMOLOL MALEATE 0.5% 5ML BTL OPTH SCH ×2 (10:08→22:01)
--- NOTE | 2018-10-14 12:14 | Physician Progress Note ---
Subjective - Date Date of Physician Progress Note: 10/14/18 - Subjective Subjective Comment: The patient is continuing to improve and ambulate with a walker. She still has moderate pain and tenderness with ambulation and palpation of the joint. She is using Tylenol for pain relief. She has no other complaints at this time. I discussed plan of care with patient's and niece. Objective - Vital Signs Vital Signs: Vital Signs - Last 24 Hrs Temp Pulse Resp BP BP Pulse Ox 10/14/18 08:28 20 10/14/18 08:00 98.9 F 62 16 128/68 97 10/14/18 06:00 98.8 F 54 L 16 124/62 96 10/13/18 20:58 99.1 F 67 16 117/56 98 10/13/18 14:44 97.9 F 61 16 155/84 97 - General General Appearance: Alert, Oriented x3, Cooperative, Mild distress Limitations: No limitations - Head Head exam: Normal inspection - Eye Eye exam: Normal appearance, PERRL, EOMI Pupils: Normal accommodation - ENT ENT exam: Normal exam, Mucous membranes moist, Normal external ear exam, Normal orophraynx Ear exam: Normal external inspection. negative: External canal tenderness Nasal Exam: Normal inspection. negative: Discharge, Sinus tenderness Mouth exam: Normal external inspection, Tongue normal Teeth exam: Normal inspection. negative: Dental caries Throat exam: Normal inspection. negative: Tonsillar erythema, Tonsillar exudate - Neck Neck exam: Normal inspection, Full ROM. negative: Tenderness - Respiratory Respiratory exam: Normal lung sounds bilaterally. negative: Respiratory distress - Cardiovascular Cardiovascular Exam: Normal rhythm, Normal heart sounds, Irregular rhythm Peripheral Pulses: 2+: Radial (R), Radial (L) - GI/Abdominal GI/Abdominal exam: Soft, Normal bowel sounds. negative: Tenderness - Rectal Rectal exam: Deferred - exam: Deferred - Extremities Extremities exam: Calf tenderness, Normal capillary refill, Tenderness, Other (left knee swelling reduced and not as tender. ) - Back Back exam: Reports: Normal inspection, Full ROM. Denies: Muscle spasm, Rash noted, Tenderness - Neurological Neurological exam: Alert, Normal gait, Oriented X3, Reflexes normal - Psychiatric Psychiatric exam: Normal affect, Normal mood - Skin Skin exam: Dry, Intact, Normal color, Warm Assessment and Plan - Assessment and Plan (1) Knee pain, acute Current Visit: Yes Status: Acute Qualifiers: Laterality: left Qualified Code(s): M25.562 - Pain in left knee Base Code: M25.569 - PAIN IN UNSPECIFIED KNEE Comment: 10/14/18: - Patient ambulating with use of rolling walker. Left knee continuing to improve. - Xray indicating large effusion. Doppler US showing complex structure of the popliteal vein which is better identified with MRI. - MRI: showing moderate effusion of left knee containing heterogenous and proteinaceous fluid which may represent hemarthrosis v infx. Popliteal cyst with similar fluid. No evidence of Osteomyelitis. Severe tricompartmental OA, large complex tear of lateral meniscus and horizontal tear of medial meniscus. - Tylenol 500mg Q6H PRN, Greenwood 5/325mg Q4H PRN. - Athrocentesis 10/11 with 25cc of bloody discharge. Lab findings with no crystals, culture pending. (2) Renal insufficiency Current Visit: Yes Status: Chronic Base Code: N28.9 - DISORDER OF KIDNEY AND URETER, UNSPECIFIED Comment: 10/14/18: - Stable Bun/Cr 33/1.5 - Chronic kidney disease stage IV - Bun/Cr: 36/1.7, GFR 30 which is baseline. - Avoid nephrotoxic agents. (3) Anemia Current Visit: No Status: Acute Qualifiers: Anemia type: due to chronic kidney disease Base Code: D64.9 - ANEMIA, UNSPECIFIED Comment: 10/14/18: - Check CBC with morning labs. - Hgb 8.5gm/dL after 1 unit PRBC administered. - MCV 97.2, Hgb 7.3 compared to 8.6. - Continue to hol Coumadin dosing hold anticogulation. (4) Subtherapeutic anticoagulation Current Visit: Yes Status: Acute Base Code: Z51.81 - ENCOUNTER FOR THERAPEUTIC DRUG LEVEL MONITORING; Z79.01 - WALL [employer]ER (CURRENT) USE OF ANTICOAGULANTS Comment: 10/14/18: - Continue to hold Coumadin doses considering hemarthrosis. - PT/INR: 45.1/5.4 --> 17.2/1.7 - Resumption of anticoagualtion to be discussed at discharge. The patient has had GI bleed, admission for hemarthrosis in the past and has significant bruising. Risk v benefit of continued anticoagulation to be further discussed with Cardiology. - Lovenox 30mg SQ daily (5) Hypertension Current Visit: No Status: Acute Base Code: I10 - ESSENTIAL (PRIMARY) HYPERTENSION Comment: 10/14/18: - On Amlodipine 5mg daily and Hydralazine 100mg TID at home. - Vitals every q4h. (6) Chronic atrial fibrillation Current Visit: Yes Status: Acute Base Code: I48.2 - CHRONIC ATRIAL FIBRILLATION Comment: 10/14/18: - Stable. - Not on rate controlling medication. - Anticoagulated on Coumadin. (7) Full code status Current Visit: No Status: Acute Base Code: Z78.9 - OTHER SPECIFIED HEALTH STATUS Comment: 10/14/18: Patient is a full code (8) DVT prophylaxis Current Visit: Yes Status: Acute Base Code: Z29.9 - ENCOUNTER FOR PROPHYLACTIC MEASURES, UNSPECIFIED Comment: 10/13/18: - High risk of DVT 2/2 a fib, venous insufficiency, previous DVTs, limited mobil ity. - Lovenox 30mg daily due to renal insufficiency. - Disposition Disposition: D/C home tomorrow with home care. Follow up with Dr. Benson in 1-2 weeks post discharge. Results - Labs Result Diagrams: 10/13/18 06:30 10/13/18 06:30 DVT/PE Assessment - Risk for VTE Risk for VTE: No Risk Level: High Risk Assessment Date: 10/11/18 Risk Assessment Time: 10:25 VTE Orders Placed or Will Be Placed: Yes - Active Medicaitons Current Medications: Current Medications Acetaminophen (Tylenol 325mg) 650 mg PO Q6H PRN PRN Reason: PAIN - MILD(1-4)/FEVER Last Admin: 10/14/18 04:33 Dose: 650 mg Documented by: Hydrocodone Bitart/Acetaminophen (Greenwood 5mg/325mg) 1 each PO Q4H PRN PRN Reason: PAIN - MODERATE (5-7) Last Admin: 10/13/18 16:31 Dose: 1 each Documented by: Amlodipine Besylate (Norvasc) 5 mg PO DAILY [facility] Last Admin: 10/14/18 09:59 Dose: 5 mg Documented by: Brimonidine Tartrate (Brimonidine Tartrate) 1 drop OP BID [facility] Last Admin: 10/14/18 10:07 Dose: 1 drop Documented by: Enoxaparin Sodium (Lovenox) 30 mg SC DAILY [facility] Last Admin: 10/14/18 09:58 Dose: 30 mg Documented by: Ferrous Sulfate (Iron) 325 mg PO BID [facility] Last Admin: 10/14/18 09:59 Dose: 325 mg Documented by: Fluticasone Propionate (Flonase) 2 spray NA DAILY [facility] Last Admin: 10/14/18 09:59 Dose: 2 spray Documented by: Furosemide (Lasix) 20 mg PO BIDDIUR [facility] Last Admin: 10/14/18 09:59 Dose: 20 mg Documented by: Hydralazine HCl (Apresoline) 100 mg PO TID [facility] Last Admin: 10/14/18 09:59 Dose: 100 mg Documented by: Levothyroxine Sodium (Synthroid) 100 mcg PO DAILYTHY [facility] Last Admin: 10/14/18 06:19 Dose: 100 mcg Documented by: Magnesium Hydroxide (Milk Of Magnesium) 30 ml PO DAILY PRN PRN Reason: INDIGESTION Potassium Chloride (Klor-Con) 10 meq PO DAILY [facility] Last Admin: 10/14/18 09:59 Dose: 10 meq Documented by: Senna/Docusate Sodium (Senna Plus) 1 each PO DAILY [facility] Last Admin: 10/14/18 09:59 Dose: 1 each Documented by: Simvastatin (Zocor) 40 mg PO QHS [facility] Last Admin: 10/13/18 22:11 Dose: 40 mg Documented by: Timolol Maleate (Timoptic) 1 drop OPTH BID [facility] Last Admin: 10/14/18 10:08 Dose: 1 drop Documented by: Zinc Oxide (Desitin) 10 gm TOP ASDIR PRN PRN Reason: RASH AMI Plan - Labs Result Diagrams: 10/13/18 06:30 10/13/18 06:30
[2018-10-14] MEDS: SIMVASTATIN 20 MG TABLET PO SCH (22:01)
[2018-10-15] MEDS: ACETAMINOPHEN 325 MG TAB PO PRN (01:09)
[2018-10-15] MEDS: LEVOTHYROXINE SODIUM 100 MCG TABLET PO SCH (06:43)
[2018-10-15] MEDS: FLUTICASONE PROPIONATE 50MCG NASAL 16 GM BTL SCH (09:24)
[2018-10-15] MEDS: AMLODIPINE BESYLATE 5MG TAB PO SCH (09:25)
[2018-10-15] MEDS: HYDRALAZINE HCL 25 MG TABLET PO SCH (09:25)
[2018-10-15] MEDS: FERROUS SULFATE 325 MG TAB PO SCH (09:25)
[2018-10-15] MEDS: SENNOSIDES/DOCUSATE SODIUM UD CAPSULE PO SCH (09:25)
[2018-10-15] MEDS: FUROSEMIDE 20 MG TABLET PO SCH (09:25)
[2018-10-15] MEDS: BRIMONIDINE TARTRATE 0.2% OPTHALMIC DROPS OP SCH (09:25)
[2018-10-15] MEDS: POTASSIUM CHLORIDE 10 MEQ TAB PO SCH (09:25)
[2018-10-15] MEDS: ENOXAPARIN 40 MG/0.4 ML SYR SC SCH (09:26)
[2018-10-15] MEDS: TIMOLOL MALEATE 0.5% 5ML BTL OPTH SCH (09:27)
--- NOTE | 2018-10-15 10:33 | Discharge Summary ---
Providers Discharge Summary Date: 10/15/18 Date of admission: 10/11/18 08:10 Expected Date of Discharge: 10/15/18 Attending physician: MYRTLE LORENZO Primary care physician: MYRTLE LORENZO Physical Exam - Vital Signs Vital Signs: Vital Signs - Last 24 Hrs Temp Pulse Resp BP BP Pulse Ox 10/15/18 08:00 98.6 F 60 16 152/82 98 10/15/18 07:37 16 10/14/18 21:00 80 16 10/14/18 16:00 98.2 F 80 16 126/82 95 - General General Appearance: Alert, Oriented x3, Cooperative, No acute distress Limitations: No limitations - Head Head exam: Normal inspection - Eye Eye exam: Normal appearance, PERRL, EOMI Pupils: Normal accommodation - ENT ENT exam: Normal exam, Mucous membranes moist, Normal external ear exam, Normal orophraynx Ear exam: Normal external inspection. negative: External canal tenderness Nasal Exam: Normal inspection. negative: Discharge, Sinus tenderness Mouth exam: Normal external inspection, Tongue normal Teeth exam: Normal inspection. negative: Dental caries Throat exam: Normal inspection. negative: Tonsillar erythema, Tonsillar exudate - Neck Neck exam: Normal inspection, Full ROM. negative: Tenderness - Respiratory Respiratory exam: Normal lung sounds bilaterally. negative: Respiratory distress - Cardiovascular Cardiovascular Exam: Normal rhythm, Normal heart sounds, Irregular rhythm Peripheral Pulses: 2+: Radial (R), Radial (L) - GI/Abdominal GI/Abdominal exam: Soft, Normal bowel sounds. negative: Tenderness - Rectal Rectal exam: Deferred - exam: Deferred - Extremities Extremities exam: Calf tenderness, Normal capillary refill, Tenderness, Other (left knee swelling reduced and not as tender. ) - Back Back exam: Reports: Normal inspection, Full ROM. Denies: Muscle spasm, Rash noted, Tenderness - Neurological Neurological exam: Alert, Normal gait, Oriented X3, Reflexes normal - Psychiatric Psychiatric exam: Normal affect, Normal mood - Skin Skin exam: Dry, Intact, Normal color, Warm Hospitalization - Hospitalization Admission Diagnosis: hyperanticoagulated, acute knee pain, renal insufficiency, unable to ambulate - Problem List/Discharge Diagnosis (1) Knee pain, acute Current Visit: Yes Status: Acute Discharge Diagnosis: Laterality: left Qualified Code(s): M25.562 - Pain in left knee Base Code: M25.569 - PAIN IN UNSPECIFIED KNEE Comment: 10/15/18 -pt is able to tolerate ambulating with walker, assisting her in/out of bed/chair -pt reports left knee continues to improve, pain controlled with tylenol alone -D/C today with and niece to assist with ADLs, also has home care -F/u [employer] and PCP -Dp and PT R/L dopplered this AM 10/14/18: - Patient ambulating with use of rolling walker. Left knee continuing to improve. - Xray indicating large effusion. Doppler US showing complex structure of the popliteal vein which is better identified with MRI. - MRI: showing moderate effusion of left knee containing heterogenous and proteinaceous fluid which may represent hemarthrosis v infx. Popliteal cyst with similar fluid. No evidence of Osteomyelitis. Severe tricompartmental OA, large complex tear of lateral meniscus and horizontal tear of medial meniscus. - Tylenol 500mg Q6H PRN, [place] 5/325mg Q4H PRN. - Athrocentesis 10/11 with 25cc of bloody discharge. Lab findings with no crystals, culture pending. (2) Chronic atrial fibrillation Current Visit: Yes Status: Acute Base Code: I48.2 - CHRONIC ATRIAL FIBRILLATION Comment: 10/15/18: - Stable. - Not on rate controlling medication. 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 - PT/INR: 45.1/5.4 --> 17.2/1.7 - Resumption of anticoagualtion to be discussed at discharge. The patient has had GI bleed, admission for hemarthrosis in the past and has significant bruising. Risk v benefit of continued anticoagulation to be further discussed with Cardiology. - Lovenox 30mg SQ daily, niece to assist with continued treatment if needed while waiting for cardiology recommedations. (4) Renal insufficiency Current Visit: Yes Status: Chronic Base Code: N28.9 - DISORDER OF KIDNEY AND URETER, UNSPECIFIED Comment: 10/15/18 BUN/Cr 36/15->35/12->33/1.5, stable -CKD stage IV with anemia -cont to avoid nephrotoxic agents 10/14/18: - Stable Bun/Cr 33/1.5 - Chronic kidney disease stage IV - Bun/Cr: 36/1.7, GFR 30 which is baseline. - Avoid nephrotoxic agents. (5) Anemia Current Visit: No Status: Acute Discharge Diagnosis: Anemia type: due to chronic kidney disease Base Code: D64.9 - ANEMIA, UNSPECIFIED Comment: 10/15/18 -Hgb 8.6->7.3 (given 1 unit PRBC)->8.5 -holding coumadin, cont lovenox 30mg SQ 10/14/18: - Check CBC with morning labs. - Hgb 8.5gm/dL after 1 unit PRBC administered. - MCV 97.2, Hgb 7.3 compared to 8.6. - Continue to hol Coumadin dosing hold anticogulation. (6) DVT (deep venous thrombosis) Current Visit: No Status: Acute Base Code: I82.409 - ACUTE EMBOLISM AND THOMBOS UNSP DEEP VN UNSP LOWER EXTREMITY Comment: 10/15/18: -Patient is high risk due to age, hospitalization, and comorbidities -Lovenox 30mg SQ daily due to kidney function (7) Full code status Current Visit: No Status: Acute Base Code: Z78.9 - OTHER SPECIFIED HEALTH STATUS Comment: 10/15/18: Patient is a full code (8) Hypertension Current Visit: No Status: Acute Base Code: I10 - ESSENTIAL (PRIMARY) HYPERTENSION Comment: 10/15/18: - On Amlodipine 5mg daily and Hydralazine 100mg TID at home. - Vitals every q4h. - Hospitalization Course Disposition: Home Health Service Hospital Course: Mrs. Plunkett is a 88 y/o female who presents with complaint of severe left knee pain since yesterday. She says that the pain is 10/10 in severity and she has been unable to walk on it. The patient states that she has not taken her Coumadin in about 2 days due to elevated INR. She says she was concerned that she developed a blood clot and that's what made her come in. She denies any injury to the knee but admits to ongoing edema of both legs. She was most recently taken off of Xarelto and started on Coumadin with pharmacy monitoring due to cost. She does have easy bruising but denies any rectal, vaginal or oral bleeding. On presentation to the ED the patient was noted to have swollen left knee and was unable to bear weight. Her PT/INR was supratherapeutic 49.1/5.2 and her hemoglobin was 8.6 which is her baseline. Xray of the left knee shows moderate effusion and the patient is admitted to the general medical floor for athrocentesis and reversal of coagulation. Procedures: Imaging and X-Rays 10/11/18 05:35 KNEE, LEFT 1 or 2 VIEWS [RAD] Stat VENOUS DOPPLER LOWER EXT LT [US] Stat 10/13/18 15:47 LOWER EXTREMITY JOINT WO CONT [MRI] Stat Abnormal Labs: Abnormal Lab Results 10/11/18 10/11/18 10/11/18 Range/Units 05:30 05:30 05:30 RBC 2.90 L (3.80-5.40) M/uL Hgb 8.6 L (11.6-16.0) gm/dl Hct 27.9 L (35.0-47.0) % MCV (81-97) fl MCHC 30.8 L (32-36) g/dl RDW (11.5-14.5) % MPV (7.4-10.4) fl Monocytes % 11.3 H (0-9) % Eosinophils % 6.3 H (0-6) % Monocytes (0-9) % PT 49.1 H* (9.5-12.1) SECONDS INR 5.2 H* BUN 36 H (8-23) mg/dL Creatinine 1.7 H (0.5-0.9) mg/dL Calcium 10.6 H (8.8-10.2) mg/dL 10/12/18 10/12/18 10/12/18 Range/Units 06:13 06:13 06:13 RBC 2.49 L (3.80-5.40) M/uL Hgb 7.3 L (11.6-16.0) gm/dl Hct 24.2 L (35.0-47.0) % MCV 97.2 H (81-97) fl MCHC 30.2 L (32-36) g/dl RDW (11.5-14.5) % MPV 10.5 H (7.4-10.4) fl Monocytes % 12.7 H (0-9) % Eosinophils % (0-6) % Monocytes (0-9) % PT 17.2 H (9.5-12.1) SECONDS INR BUN 35 H (8-23) mg/dL Creatinine 1.6 H (0.5-0.9) mg/dL Calcium (8.8-10.2) mg/dL 10/13/18 10/13/18 Range/Units 06:30 06:30 RBC 2.91 L (3.80-5.40) M/uL Hgb 8.5 L (11.6-16.0) gm/dl Hct 27.4 L (35.0-47.0) % MCV (81-97) fl MCHC 31.0 L (32-36) g/dl RDW 15.2 H (11.5-14.5) % MPV (7.4-10.4) fl Monocytes % (0-9) % Eosinophils % (0-6) % Monocytes 18.0 H (0-9) % PT (9.5-12.1) SECONDS INR BUN 33 H (8-23) mg/dL Creatinine 1.5 H (0.5-0.9) mg/dL Calcium (8.8-10.2) mg/dL Condition at Discharge: (2) Stable Discharge Medications - Discharge Medications Prescriptions: Enoxaparin Sodium [Lovenox] 30 mg SC DAILY #7 syr Home Medications: Ambulatory Orders Multivitamin [Multi-Vitamin Daily] 1 each PO DAILY tab 07/12/17 [Last Taken 10/10/18] Brimonidine Tartrate/Timolol [Combigan 0.2%-0.5% Eye Drops] 1 drop EACH EYE BID 05/02/18 [Last Taken 10/10/18] Ascorbic Acid [Vitamin C] 1,000 mg PO BID #60 tab 08/20/18 [Last Taken 10/10/18] Fexofenadine HCl [Melinda Allergy] 180 mg PO DAILY 10/11/18 [Last Taken 10/10/18] Simvastatin 40 mg PO QHS 10/11/18 [Last Taken 10/10/18 22:00] Acetaminophen [Tylenol 325Mg] 650 mg PO Q6H PRN tablet 10/15/18 [Last Taken Unknown] Enoxaparin Sodium [Lovenox] 30 mg SC DAILY #7 syr 10/15/18 [Last Taken Unknown] Sennosides/Docusate Sodium [Senna Plus] 1 each PO DAILY capsule 10/15/18 [Last Taken Unknown] Simvastatin [Zocor] 40 mg PO QHS tablet 10/15/18 [Last Taken Unknown] Zinc Oxide [Desitin] 10 gm TOP ASDIR PRN tube 10/15/18 [Last Taken Unknown] Discharge Plan - Discharge Instructions Activity at Discharge: Ambulate Only With Your Walker, Increase Activity as Tolerated Diet at Discharge: Advance to Usual Diet Instructions: Swollen Knee Joint (GEN) Quality Measures - Quality Measures Quality Measures: Atrial Fibrillation & Atrial Flutter: Chronic Anticoagulation Therapy, Advance Directives, Documentation of Current Medications in Medical Record, Elder Maltreatment Screen and Follow-Up Plan, Screening for High Blood Pressure and F/U Documented - Current Medications Quality Measure: Measure #130: Documentation of Current Medications Documentation of Current Medications: <Current Medications Documented/Reviewed> [G8427] - Blood Pressure Screening Quality Measure: Screening for High Blood Pressure and Follow-Up Documented Does Patient Have Any of the Following: Active Dx of HTN Blood Pressure Classification: Hypertensive Reading Systolic Measurement: 179 Diastolic Measurement: 98 Screening for High Blood Pressure: Patient Exclusion, Hx of HTN [G9744] - Atrial Fibrillation and Atrial Flutter Quality Measure: Atrial Fibrillation & Atrial Flutter: Chronic Anticoagulation Therapy Does Patient Have Any of the Following: No CHADS2 Risk Stratification: Age 75 or Greater, Hypertension Risk Stratification Summary: One or more high risk factors OR more than one moderate risk factor exists. [G8972] Anticoagulation Therapy: <Oral anticoagulant Prescribed> [G8967] - Advance Directives Quality Measure: Measure #47: Care Plan Advance Directives Established: No Advance Directives Information Provided To Patient: Declined Advance Directives on File: No Living Will: Yes Power of Sales Technician Home Theater: No Power of Sales Technician Home Theater Name: Kandi Cutler Advance Care Planning: <Care Plan/Decision Maker Documented; Discussed & Documented> [[id number]] - Elder Abuse Suspicion Index Screening: Elder Abuse Suspicion Index Screening Rely on people for bathing, dressing, shopping, banking, etc: Yes Prevented from getting food, clothes, medication, etc: No Made to feel shamed or threatened by someone: No Forced to sign papers or use money against will: No Feel afraid, touched in ways not wanted or hurt physically: No Poor eye contact, withdrawn, malnourished, cuts or bruises: No Screening Result: Negative result EASI Reference Information: Nicole HOFFMAN, Jeff C, Gardenia D, Az Pickett.Development and validation of a tool to assist physicians identification of elder abuse: The Elder Abuse Suspicion Index (EASI ). Journal of Elder Abuse and Neglect, 2008; 20 (3): 276-300. - Elder Maltreatment Screen Quality Measures: Elder Maltreatment Screen and Follow-Up Plan Elder Maltreatment Screen: <Negative, No Follow-Up Plan Required> [G8734]
--- NOTE | 2018-10-15 11:10 | Physician Addendum ---
Addendum (Physician) 10/15/18 11:09 [facility] to assist patient with physical and occupational therapy along with bathing assistance.
--- NOTE | 2018-10-16 07:00 | MRI REPORT ---
EXAM: MRI OF THE LEFT KNEE WITHOUT CONTRAST HISTORY: LEFT KNEE PAIN, SWELLING, AND WARMTH FOR THE PAST FOUR DAYS. JOINT ASPIRATION LAST NIGHT. TECHNIQUE: Multiplanar, multisequence MR imaging of the left knee was performed without contrast. Comparison: Left knee x-rays dated 10/11/18. 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 The posterior cruciate ligament is intact as are the medial and lateral collateral ligaments. The patellar and quadriceps tendons are intact. There is heterogeneous joint fluid throughout the knee with associated internal debris. The fluid is heterogeneous on both the T1 and T2 sequences. There are hyperintense and hypointense portions of fluid on both T1 and T2 weighted images. This is consistent with proteinaceous fluid which may be due to hemarthrosis or infection. Correlate with the aspiration findings. The joint effusion is moderate in size. There is a small popliteal cyst with similar appearing heterogeneous fluid. The popliteal cyst measures 5.4 cm in length x 1.7 cm AP x 1.6 cm transverse. Severe tricompartmental arthritic changes are present. There is near complete loss of the articular cartilage within the lateral and patellofemoral compartments. There is moderate to severe cartilage loss within the medial compartment. There is associated subchondral sclerosis and edema at the median eminence of the patella and within the lateral compartment. This appears degenerative in nature. The osseous structures otherwise demonstrate normal signal intensity. There is no evidence for fracture or osteomyelitis. There is a large complex tear involving the lateral meniscus. Horizontal and radial tear components are present within the posterior horn. There is lateral extrusion of the meniscal body which is located outside of the joint line. There is diffuse abnormal signal intensity within the anterior horn. There is a horizontal tear involving the posterior horn of the medial meniscus extending to the inferior articular surface. IMPRESSION: 1. MODERATE SIZED HETEROGENEOUS JOINT EFFUSION CONTAINING PROTEINACEOUS FLUID. THIS MAY REPRESENT HEMARTHROSIS OR INFECTION. CORRELATE WITH THE RECENT ASPIRATION. 2. SMALL POPLITEAL CYST CONTAINING SIMILAR APPEARING HETEROGENEOUS FLUID. 3. SEVERE TRICOMPARTMENTAL ARTHRITIC CHANGES. 4. LARGE COMPLEX TEAR OF THE LATERAL MENISCUS WITH LATERAL EXTRUSION OF THE MENISCAL BODY. 5. HORIZONTAL TEAR WITHIN THE POSTERIOR HORN OF THE MEDIAL MENISCUS. JOB NUMBER: [id number] [facility]
== END 2018-10-15 11:40 | disposition home health service (06) | DRG 918 ==
LOC: ER 05:15 → MEDSURG 08:10
PROVIDERS: ADMIT Internal Medicine; ATTEND Internal Medicine
DX: T45.515A Adverse effect of anticoagulants, initial encounter (principal); R79.1 Abnormal coagulation profile; Z51.81 Encounter for therapeutic drug level monitoring; N28.9 Disorder of kidney and ureter, unspecified; R26.2 Difficulty in walking, not elsewhere classified; I48.2 Chronic atrial fibrillation; D64.9 Anemia, unspecified; I48.91 Unspecified atrial fibrillation; I10 Essential (primary) hypertension; Z79.01 Long term (current) use of anticoagulants; E03.9 Hypothyroidism, unspecified; R60.9 Edema, unspecified; M81.0 Age-related osteoporosis without current pathological fracture; M50.30 Other cervical disc degeneration, unspecified cervical region; Z87.442 Personal history of urinary calculi
CPT/HCPCS: 36430; 73721; 80048; 85025; 85027; 85610; 86850; 86900; 86901; 89060; 96374; 96376; 99217; 99223; 99233; 99285; J1650; J3490

== ENCOUNTER 2018-12-07 08:20 | Emergency (ER) | payer MEDICARE, BC ==
--- NOTE | 2018-12-07 08:47 | Emergency Department Record ---
History of Present Illness - General Chief complaint: Lower Extremity Pain Stated complaint: LEFT HIP PAIN Time Seen by Provider: 12/07/18 08:40 Source: Patient, RN notes reviewed Mode of Arrival: Wheelchair - History of Present Illness Initial comments: left hip pain and this started 3 days ago and no trauma. Normally walks with a walker and very painful to walk with the walker now. 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 knee pain is at her baseline and she has some low back pain which is chronic Onset/Timin -: Days(s) Location: Left, Other History of Same: No Severity scale (1-10): 10 Consistency: Constant Improves with: Nothing Worsens with: Nothing Associated Symptoms: Denies other symptoms - Related Data Previous Rx's Medication Instructions Recorded Ascorbic Acid [Vitamin C] 1,000 mg PO BID #60 tab 08/20/18 Acetaminophen [Tylenol 325Mg] 650 mg PO Q6H PRN tablet 10/15/18 Sennosides/Docusate Sodium [Senna 1 each PO DAILY capsule 10/15/18 Plus] Simvastatin [Zocor] 40 mg PO QHS tablet 10/15/18 Zinc Oxide [Desitin] 10 gm TOP ASDIR PRN tube 10/15/18 Indomethacin [Indocin] 25 mg PO TID #21 capsule 12/07/18 Allergies Allergy/AdvReac Type Severity Reaction Status Date / Time No Known Drug Allergies Allergy Verified 12/07/18 08:36 Travel Screening - Travel/Exposure Within Last 30 Days Have you traveled within the last 30 days?: No Review of Systems Reviewed: No additional complaints except as noted below Constitutional: Reports: As per HPI. Denies: Chills, Fever, Malaise, Night sweats, Weakness, Weight change Eyes: Reports: As per HPI. Denies: Eye discharge, Eye pain, Photophobia, Vision change ENT: Reports: As per HPI. Denies: Congestion, Dental pain, Ear pain, Epistaxis, Hearing loss, Throat pain Respiratory: Reports: As per HPI. Denies: Cough, Dyspnea, Hemoptysis, Stridor, Wheezes Cardiovascular: Reports: As per HPI. Denies: Arrhythmia, Chest pain, Dyspnea on exertion, Edema, Murmurs, Orthopnea, Palpitations, Paroxysmal nocturnal dyspnea, Rheumatic Fever, Syncope Endocrine: Reports: As per HPI. Denies: Fatigue, Heat or cold intolerance, Polydipsia, Polyuria Gastrointestinal: Reports: As per HPI. Denies: Abdominal pain, Constipation, Diarrhea, Hematemesis, Hematochezia, Melena, Nausea, Vomiting Genitourinary: Reports: As per HPI. Denies: Abnormal menses, Discharge, Dyspareunia, Dysuria, Frequency, Hematuria, Incontinence, Retention, Urgency Musculoskeletal: Reports: As per HPI, Arthralgia. Denies: Back pain, Gout, Joint swelling, Myalgia, Neck pain Skin: Reports: As per HPI. Denies: Bruising, Change in color, Change in hair/nails, Lesions, Pruritus, Rash Neurological: Reports: As per HPI. Denies: Abnormal gait, Confusion, Headache, Numbness, Paresthesias, Seizure, Tingling, Tremors, Vertigo, Weakness Psychiatric: Reports: As per HPI. Denies: Anxiety, Auditory hallucinations, Depression, Homicidal thoughts, Suicidal thoughts, Visual hallucinations Hematological/Lymphatic: Reports: As per HPI. Denies: Anemia, Blood Clots, Easy bleeding, Easy bruising, Swollen glands Past Medical History - SOCIAL HISTORY Smoking Status: Never smoker Alcohol Use: None Drug Use: None - RESPIRATORY Hx Respiratory Disorders: No - CARDIOVASCULAR Hx Cardio Disorders: Yes Hx Edema: Yes Hx Hypertension: Yes Hx Irregular Heartbeat: Yes (Afib) Comment:: Pt unaware of when in Afib, "goes in and out without warning" no s/s - NEURO Hx Neuro Disorders: No - GI Hx GI Disorders: Yes Hx Abdominal Pain: Yes Hx Diverticulitis: Yes (Mar, 2016) Hx of Polyps: Yes - Hx Genitourinary Disorders: Yes Hx Kidney Stones: Yes (small on right) - ENDOCRINE Hx Endocrine Disorders: Yes Hx Diabetes: No Hx Thyroid Disease: Yes (hypo) - MUSCULOSKELETAL Hx Musculoskeletal Disorders: Yes Hx Arthritis: Yes Hx Osteoporosis: Yes Comment:: DDD-neck - PSYCH Hx Psych Problems: No - HEMATOLOGY/ONCOLOGY Hx Hematology/Oncology Disorders: Yes Hx Bruising: Yes (d/t NSAID & Asa) Family Medical History Any Significant Family History?: Yes Hx Cancer: Brother/Sister Hx Depression: Brother/Sister Hx Heart Disease: Mother, Brother/Sister *Heart Comment: Son Physical Exam - General General Appearance: Alert, Oriented x3, Cooperative, No acute distress - Head Head exam: Normal inspection - Eye Eye exam: Normal appearance, PERRL Pupils: Normal accommodation - ENT ENT exam: Normal exam, Mucous membranes moist, Normal external ear exam, Normal orophraynx, TM's normal bilaterally Ear exam: Normal external inspection. negative: External canal tenderness Nasal Exam: Normal inspection. negative: Discharge, Sinus tenderness Mouth exam: Normal external inspection, Tongue normal Teeth exam: Normal inspection. negative: Dental caries Throat exam: Normal inspection. negative: Tonsillar erythema, Tonsillar exudate - Neck Neck exam: Normal inspection, Full ROM. negative: Tenderness - Respiratory Respiratory exam: Normal lung sounds bilaterally. negative: Respiratory distres s - Cardiovascular Cardiovascular Exam: Regular rate, Normal rhythm, Normal heart sounds - GI/Abdominal GI/Abdominal exam: Soft, Normal bowel sounds. negative: Tenderness - Rectal Rectal exam: Deferred - exam: Deferred - Extremities Extremities exam: Normal inspection, Full ROM, Normal capillary refill, Tenderness (left hip pain) - Back Back exam: Reports: Normal inspection, Full ROM. Denies: Muscle spasm, Rash noted, Tenderness - Neurological Neurological exam: Alert, Normal gait, Oriented X3, Reflexes normal - Psychiatric Psychiatric exam: Normal affect, Normal mood - Skin Skin exam: Dry, Intact, Normal color, Warm Course Vital Signs 12/07/18 08:29 Temperature 97.8 F Pulse Rate 57 L Respiratory 20 Rate Blood Pressure 185/78 Pulse Ox 97 Medical Decision Making - Data Complexity MDM Data: Labs Ordered and/or Reviewed (uric acid elevated 7.3), X-Ray Ordered and/or Reviewed (xray neg for fracture read by me) - Lab Data Result diagrams: 12/07/18 09:00 12/07/18 09:00 Disposition Clinical Impression: Hip pain, left Gout Qualifiers: Gout site: hip Gout etiology: idiopathic Chronicity: acute Laterality: left Qualified Code(s): 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, left hip Disposition: Home, Self-Care Condition: (1) Good Instructions: Gout (ED) Additional Instructions: follow up with Dr Benson in 4-5 days take indocint 50 mg three times a day Prescriptions: Indomethacin [Indocin] 25 mg PO TID #21 capsule Forms: Patient Portal Access Time of Disposition: 10:23 Quality - Quality Measures Quality Measures: N/A - Blood Pressure Screening Does Patient Have Any of the Following: No, Active Dx of HTN Blood Pressure Classification: Hypertensive Reading Systolic Measurement: 185 Diastolic Measurement: 78 Screening for High Blood Pressure: Patient Exclusion, Hx of HTN [[id number]]
[2018-12-07] MEDS ORDERED: KETOROLAC 30 MG/ML VIAL IVP ONE (08:51)
[2018-12-07 09:19] LABS: ABSOLUTE NEUTROPHIL COUNT 3.24; BASO % 0.3 % (0-6); EOS % 2.9 % (0-6); GRAN % 52.7 % (47-80); HEMATOCRIT 29.4 % (35.0-47.0); HEMOGLOBIN 9.1 gm/dl (11.6-16.0); LYMPH % 30.1 % (16-45); MEAN CELL VOLUME 96.7 fl (81-97); MEAN CORPUSCULAR HEMOGLOBIN 29.9 pg (27-33); MEAN PLATELET VOLUME 10.7 fl (7.4-10.4); PLATELET COUNT 235 K/uL (130-400); RED BLOOD COUNT 3.04 M/uL (3.80-5.40); RED CELL DISTRIBUTION WIDTH 14.5 % (11.5-14.5); WHITE BLOOD COUNT W/O DIFF 6.2 K/uL (4.2-12.2)
[2018-12-07 09:29] LABS: PROTHROMBIN TIME (PATIENT) 10.7 SECONDS (9.5-12.1)
[2018-12-07 09:31] LABS: CREATININE 1.7 mg/dL (0.5-0.9)
[2018-12-07 09:38] LABS: C-REACTIVE PROTEIN 0.39 mg/dL (<0.5)
--- NOTE | 2018-12-07 10:24 | RADIOLOGY REPORT ---
EXAMINATION: Left Hip Minimum Two Views EXAM DATE: 12/07/2018 10:04 AM TECHNIQUE: AP pelvis and left frog leg lateral hip views INDICATION: pain no trauma COMPARISON: 08/17/2018 ENCOUNTER: Initial FINDINGS: Diffuse osteopenia. Degenerative change LS-spine. SI joints patent and symmetrical. No acute fracture or dislocation. Vascular calcifications. IMPRESSION: No acute abnormality, follow-up MRI if symptoms persist Dictated by: Mo Ignacio MD on 12/07/2018 10:14 AM. .
== END 2018-12-07 10:45 | disposition home or self-care (01) ==
LOC: ER 08:20
DX: M10.052 Idiopathic gout, left hip (principal); I48.91 Unspecified atrial fibrillation; I10 Essential (primary) hypertension
CPT/HCPCS: 80048; 84550; 85025; 85610; 86140; 96374; 99284; J1885